=== PATIENT | male | born 1950 | race Two or more races ===

== ENCOUNTER → 2017-03-27 | Outpatient (CLI) | payer BC ==
[2017-03-27 13:09] LABS: Basophils # (auto) 0.1 uL; Basophils % (auto) 0.7 % (0.0-2.0); CONDITION Y; Eosinophils # (auto) 0.3 uL; Eosinophils % (auto) 3.7 % (0.0-7.0); Hematocrit 48.3 % (41.0-53.0); Hemoglobin 16.3 g/dL (13.5-17.5); Lymphocytes # (auto) 2.3 uL; Lymphocytes % (auto) 33.3 % (10.0-50.0); Mean Corpuscular Hemoglobin 32.4 pg (28.0-32.0); Mean Corpuscular Hgb Conc. 33.7 g/dL (32.0-36.0); Mean Corpuscular Volume 96.3 fL (80.0-100.0); Mean Platelet Volume 9.4 fL (7.4-10.4); Monocytes # (auto) 0.8 uL; Monocytes % (auto) 11.8 % (0.0-12.0); Neutrophils # (auto) 3.5 uL; Neutrophils % (auto) 50.5 % (37.0-80.0); Platelet Count (auto) 309 10^3/uL (140-450); Red Cell Distribution Width 14.3 % (11.6-16.0); White Blood Cell 6.9 10^3/uL (4.4-10.8)
[2017-03-27 13:38] LABS: Albumin 3.7 g/dL (3.4-5.0); Alkaline Phosphatase 74 U/L (45-117); Anion Gap 7 (5-15); Aspartate Aminotransferase 20 U/L (15-37); BUN/Creatinine Ratio 12.1; Bilirubin, Direct < 0.1 mg/dL (0-0.2); Bilirubin, Total 0.4 mg/dL (0.2-1.0); Blood Urea Nitrogen 11 mg/dL (7-18); Calcium 9.6 mg/dL (8.5-10.1); Carbon Dioxide 24 mmol/L (21-32); Chloride 105 mmol/L (98-107); Cholesterol 117 mg/dL (< 200); GFR African American 107 mL/min; GFR Non-African American 88 mL/min; Glucose 93 mg/dL (74-106); HDL Cholesterol 43 mg/dL (40-59); LDL Cholesterol 51 mg/dL (< 100); Potassium 4.7 mmol/L (3.5-5.1); Sodium 136 mmol/L (136-145); Total Protein 7.9 g/dL (6.4-8.2); Triglycerides 119 mg/dL (< 150)
== END | disposition home or self-care (01) ==
LOC: LAB 08:07
PROVIDERS: ATTEND Internal Medicine Cardiovascular Disease
DX: E78.00 Pure hypercholesterolemia, unspecified (principal); D64.9 Anemia, unspecified; I10 Essential (primary) hypertension; E03.9 Hypothyroidism, unspecified; E11.9 Type 2 diabetes mellitus without complications; R97.20 Elevated prostate specific antigen [PSA]; K74.1 Hepatic sclerosis; N39.0 Urinary tract infection, site not specified; E55.9 Vitamin D deficiency, unspecified; R53.81 Other malaise
CPT/HCPCS: 36415; 80048; 80061; 80076; 82306; 83036; 84153; 84403; 84439; 84443; 85025

== ENCOUNTER → 2017-10-23 | Outpatient (CLI) | payer BC ==
[~2017-10-23] VITALS: Ht 177.8 cm; Wt 98.4 kg
[2017-10-23 12:33] LABS: Basophils # (auto) 0.1 uL; Eosinophils # (auto) 0.2 uL; Eosinophils % (auto) 2.6 % (0.0-7.0); Hematocrit 47.3 % (41.0-53.0); Hemoglobin 15.8 g/dL (13.5-17.5); Lymphocytes # (auto) 2.4 uL; Lymphocytes % (auto) 29.7 % (10.0-50.0); Mean Corpuscular Hemoglobin 31.9 pg (28.0-32.0); Mean Corpuscular Hgb Conc. 33.5 g/dL (32.0-36.0); Mean Corpuscular Volume 95.4 fL (80.0-100.0); Neutrophils # (auto) 4.3 uL; Neutrophils % (auto) 54.7 % (37.0-80.0); Nucleated Red Blood Cells % 0.1 %; Platelet Count (auto) 288 10^3/uL (140-450); Red Blood Cells 4.96 10^6/uL (4.5-5.90); Red Cell Distribution Width 13.3 % (11.8-14.3); White Blood Cell 7.9 10^3/uL (4.4-10.8)
[2017-10-23 12:37] LABS: Urine Blood TRACE /uL (Negative)
[2017-10-23 13:05] LABS: Albumin 3.5 g/dL (3.4-5.0); BUN/Creatinine Ratio 14.9; Bilirubin, Total 0.4 mg/dL (0.2-1.0); Calcium 9.5 mg/dL (8.5-10.1); Potassium 4.7 mmol/L (3.5-5.1); Total Protein 7.9 g/dL (6.4-8.2)
[2017-10-23 13:32] LABS: Free T4 (Free Thyroxine) 1.19 ng/dL (0.89-1.76); Prostate Specific Antigen 2.81 ng/mL (0.0-4.0)
== END | disposition home or self-care (01) ==
LOC: Rad HDHVI 09:42
PROVIDERS: ATTEND Internal Medicine Cardiovascular Disease
DX: I25.10 Atherosclerotic heart disease of native coronary artery without angina pectoris (principal); R07.89 Other chest pain; E78.00 Pure hypercholesterolemia, unspecified; D64.9 Anemia, unspecified; J44.9 Chronic obstructive pulmonary disease, unspecified; E11.9 Type 2 diabetes mellitus without complications; E03.9 Hypothyroidism, unspecified; E55.9 Vitamin D deficiency, unspecified; I10 Essential (primary) hypertension; K74.1 Hepatic sclerosis; D51.9 Vitamin B12 deficiency anemia, unspecified; R53.81 Other malaise; R97.20 Elevated prostate specific antigen [PSA]; Z72.0 Tobacco use
CPT/HCPCS: 36415; 78452; 80053; 80061; 81003; 82306; 82607; 83036; 84153; 84439; 84443; 85025; 93017; 93306; 96374; A9500

== ENCOUNTER 2018-09-28 18:51 | Inpatient (IN) | payer BC ==
[~2018-09-28] VITALS: Ht 165.1 cm; Wt 94.7 kg
[2018-09-28 20:12] LABS: Basophils # (auto) 0.1 uL; Basophils % (auto) 0.9 % (0.0-2.0); Eosinophils # (auto) 0.1 uL; Lymphocytes # (auto) 1.5 uL; Monocytes # (auto) 1.2 uL; Nucleated Red Blood Cells % 0.1 %
[2018-09-28 20:14] LABS: Eosinophils % (auto) 0.5 % (0.0-7.0); Hematocrit 39.1 % (41.0-53.0); Hemoglobin 12.8 g/dL (13.5-17.5); Mean Corpuscular Hemoglobin 26.7 pg (28.0-32.0); Mean Corpuscular Hgb Conc. 32.6 g/dL (32.0-36.0); Mean Corpuscular Volume 81.8 fL (80.0-100.0); Monocytes % (auto) 10.6 % (0.0-12.0); Platelet Count (auto) 400 10^3/uL (140-450); Red Blood Cells 4.78 10^6/uL (4.5-5.90); White Blood Cell 10.8 10^3/uL (4.4-10.8)
[2018-09-28 20:33] LABS: Chloride 109 mmol/L (98-107); Potassium 3.6 mmol/L (3.5-5.1); Sodium 137 mmol/L (136-145)
[2018-09-28 20:36] LABS: INR 0.93 (0.9-1.15); Partial Thromboplastin Time 26.4 sec (23.78-33.04)
[2018-09-28 20:43] LABS: Alanine Aminotransferase 30 U/L (16-61); Albumin 3.4 g/dL (3.4-5.0); Alkaline Phosphatase 89 U/L (45-117); Amylase 30 U/L (25-115); Anion Gap 6 (5-15); Aspartate Aminotransferase 24 U/L (15-37); BUN/Creatinine Ratio 14.1; Bilirubin, Total 0.5 mg/dL (0.2-1.0); Blood Urea Nitrogen 13 mg/dL (7-18); Carbon Dioxide 22 mmol/L (21-32); GFR African American > 60 mL/min; GFR Non-African American > 60 mL/min; Glucose 95 mg/dL (74-106); Lipase 89 U/L (73-393); Magnesium 2.1 mg/dL (1.6-2.6); Total Protein 7.8 g/dL (6.4-8.2)
[2018-09-28] MEDS ORDERED: SODIUM CHLORIDE 0.9% 1,000 ML IV ONE (23:00)
[2018-09-28] MEDS ORDERED: metroNIDAZOLE 500MG/100ML 100 ML IV ONE (23:00)
[2018-09-28] MEDS ORDERED: cefTRIAXone 1GM/50ML D5W 50 ML IV ONE (23:00)
[2018-09-28] MEDS ORDERED: ONDANSETRON HCL 4 MG/2 ML VIAL IV ONE (23:45)
[2018-09-29] VITALS (7 sets, daily range): BP systolic 111–130; BP diastolic 54–80
[2018-09-29] MEDS ORDERED: MORPHINE SULFATE 10 MG/ML INJ 1ML SDV IV PRN (02:00)
[2018-09-29] MEDS ORDERED: TEMAZEPAM 15 MG CAP PO PRN (02:00)
[2018-09-29] MEDS ORDERED: ONDANSETRON HCL 4 MG/2 ML VIAL IV PRN (02:00)
[2018-09-29] MEDS: SODIUM CHLORIDE 0.9% 1,000 ML IV SCH ×3 (02:00→20:48)
--- NOTE | 2018-09-29 02:42 | NUR ---
Med-Surg admit from ER [facility] admitted to med-surg unit. No SBAR received. Patient oriented to SISI DUENAS primary RN, [facility] unit, room # 250, bed- A, and unit policies regarding patient care and visiting hours. Patient placed on Room Air,no distress moted or stated, denies pain, and encouraged to call if they need something. All questions and concerns addressed, patient verbalized understanding.
--- NOTE | 2018-09-29 02:59 | NUR ---
X-RAY ORDER IN PLACE TO CONFIRM NG PLACEMENT.
--- NOTE | 2018-09-29 03:43 | NUR ---
BELONGINGS LIST. UPDATED AND IN PHYSICAL CHART.
[2018-09-29] MEDS ORDERED: LISI2.5T47 PO (04:59)
[2018-09-29] MEDS: PANTOPRAZOLE 40 MG/10 ML VIAL IV SCH (06:23)
--- NOTE | 2018-09-29 07:39 | NUR ---
CLOSING NOTE SABER REPORT GIVEN TO HEIKE MONTALVO. PT IS ALERT AND ORIENTED 4X, SAFETY PRECAUTIONS IN PLACE. DAY SHIFT RN AWARE THAT NG TUBE WAS PULLED OUT AND WE ARE WAITING FOR NEW REPORT TO CONNECT NG TO LIS.
--- NOTE | 2018-09-29 08:00 | NUR ---
Opening Shift Note Assumed care of patient, awake and alert. No S/S of distress/SOB or pain. With NG tube connected to low intermittent suction intact draining to gastric content in minimal amount. Instructed on POC and to call for assist PRN, will continue to monitor for changes Q1hr and PRN.
[2018-09-29] MEDS ORDERED: GASTROGRAFIN 120 ML SOL ONE (09:39)
[2018-09-29] MEDS ORDERED: IOHEXOL 300 MG/ML 100ML BOTTLE IJ ONE (09:42)
--- NOTE | 2018-09-29 11:00 | NUR ---
Oncology consult follow up with Dr. Lopez. Waiting for call back. Will continue care.
[2018-09-29] MEDS ORDERED: cefTRIAXone 1GM/50ML D5W 50 ML IV ONE (12:00)
--- NOTE | 2018-09-29 12:31 | NUR ---
GI consult Dr. Cordova at bedside. Patient was advised. No GI intervention at this time. Will continue care.
--- NOTE | 2018-09-29 13:00 | NUR ---
Completion bowel series done. Waiting for results.
--- NOTE | 2018-09-29 13:15 | NUR ---
Received orders from Dr. Talavera, Patient is for PICC line insertion for TPN. Will continue care.
[2018-09-29 13:43] LABS: Anion Gap 9 (5-15); BUN/Creatinine Ratio 18.6; Blood Urea Nitrogen 16 mg/dL (7-18); Calcium 8.7 mg/dL (8.5-10.1); Carbon Dioxide 20 mmol/L (21-32); Chloride 112 mmol/L (98-107); GFR African American > 60 mL/min; GFR Non-African American > 60 mL/min; Glucose 83 mg/dL (74-106); Magnesium 2.1 mg/dL (1.6-2.6); Phosphorus 3.8 mg/dL (2.5-4.90); Potassium 4.3 mmol/L (3.5-5.1); Sodium 141 mmol/L (136-145)
[2018-09-29] MEDS ORDERED: TPN PER PHARMACY 0 ML IV SCH (14:15)
[2018-09-29] MEDS: ACCU-CHEK COMFORT CURVE STRIP VI SCH (17:03)
[2018-09-29] MEDS: SODIUM FERR GLUC 62.5MG/5ML 125 MG in SODIUM CHL 0.9% 100 ML IV SCH (17:03)
--- NOTE | 2018-09-29 17:30 | NUR ---
Tap water enema done. Patient able to pass out stools, soft in consistency.
[2018-09-29] MEDS ORDERED: DEXTROSE (50%) 50ML SYRG IV SCH (18:00)
[2018-09-29] MEDS: InsuLIN REG 1unit/0.01ml Soln (100units/ml) SC SCH (18:00)
[2018-09-29] MEDS: AMINO ACID INFUSION IN D10W 1,000 ML IV NR (20:48)
[2018-09-30] MEDS: ACCU-CHEK COMFORT CURVE STRIP VI SCH ×4 (00:02→17:40)
[2018-09-30 01:53] LABS: Urine Bacteria NONE SEEN /hpf (None Seen); Urine Blood TRACE /uL (Negative); Urine Mucus FEW (None Seen); Urine Specific Gravity 1.041 (1.001-1.035); Urine WBC 2 /hpf (0 - 3)
[2018-09-30 04:56] VITALS: BP 112/66
[2018-09-30 05:46] LABS: Basophils # (auto) 0 uL; Basophils % (auto) 0.3 % (0.0-2.0); Eosinophils # (auto) 0 uL; Eosinophils % (auto) 0.3 % (0.0-7.0); Hemoglobin 11.9 g/dL (13.5-17.5); Mean Corpuscular Hgb Conc. 31.9 g/dL (32.0-36.0); Monocytes # (auto) 1.2 uL; Red Blood Cells 4.57 10^6/uL (4.5-5.90); White Blood Cell 9.7 10^3/uL (4.4-10.8)
[2018-09-30 05:49] LABS: Hematocrit 37.3 % (41.0-53.0); Lymphocytes # (auto) 0.8 uL; Lymphocytes % (auto) 8.7 % (10.0-50.0); Mean Corpuscular Volume 81.6 fL (80.0-100.0); Monocytes % (auto) 12.2 % (0.0-12.0); Neutrophils # (auto) 7.6 uL; Neutrophils % (auto) 78.5 % (37.0-80.0); Platelet Count (auto) 378 10^3/uL (140-450); Red Cell Distribution Width 17.4 % (11.8-14.3)
[2018-09-30] MEDS: InsuLIN REG 1unit/0.01ml Soln (100units/ml) SC SCH ×4 (05:51→17:40)
[2018-09-30 06:05] LABS: Anion Gap 5 (5-15); Blood Urea Nitrogen 19 mg/dL (7-18); Calcium 8.1 mg/dL (8.5-10.1); Carbon Dioxide 24 mmol/L (21-32); Chloride 113 mmol/L (98-107); Glucose 120 mg/dL (74-106); Magnesium 2.3 mg/dL (1.6-2.6); Potassium 3.6 mmol/L (3.5-5.1); Sodium 142 mmol/L (136-145)
[2018-09-30 06:06] LABS: % Iron Saturation 91.7 % (20-55)
[2018-09-30 06:12] LABS: Alanine Aminotransferase 24 U/L (16-61); Alkaline Phosphatase 81 U/L (45-117); Aspartate Aminotransferase 17 U/L (15-37); BUN/Creatinine Ratio 23.2; Bilirubin, Total 0.4 mg/dL (0.2-1.0); GFR African American > 60 mL/min; GFR Non-African American > 60 mL/min; Phosphorus 2.6 mg/dL (2.5-4.90); Pre Albumin 14.8 mg/dL (20.0-40.0); Triglycerides 82 mg/dL (< 150)
[2018-09-30] MEDS: PANTOPRAZOLE 40 MG/10 ML VIAL IV SCH (06:50)
--- NOTE | 2018-09-30 08:00 | NUR ---
Opening Shift Note Assumed care of patient, awake and alert. No S/S of distress/SOB or pain. Patient verbalized having episodes of vomiting last night. Patient NG tube at left nares intact connected to low intermittent suction draining to brownish to clear output in moderate amount. Instructed on POC and to call for assist PRN, will continue to monitor for changes Q1hr and PRN.
[2018-09-30 09:00] VITALS: BP 122/72
--- NOTE | 2018-09-30 09:00 | NUR ---
IV removal IV on left hand infiltrated. IV DC'd with clean sterile technique, catheter fully intact. Pressure dressing applied to site. Patient tolerated well.
[2018-09-30 09:10] LABS: Folate (Folic Acid) 8.37 ng/mL (5.38-24)
--- NOTE | 2018-09-30 10:15 | NUR ---
IV reinsertion IV access obtained, via clean sterile technique by inserting 18 gauge catheter at left wrist after one attempt. IV secured properly. No trauma to site. Patient tolerated well.
[2018-09-30] MEDS: cefTRIAXone 1GM/50ML D5W 50 ML IV SCH (10:29)
[2018-09-30] MEDS ORDERED: POTASSIUM PHOSPHATE 22 MEQ in SODIUM CHL 0.9% 100 ML IV ONE (11:45)
--- NOTE | 2018-09-30 12:00 | NUR ---
Unable to do Accucheck at this time, ongoing PICC line insertion at bedside. Will continue care.
--- NOTE | 2018-09-30 12:05 | NUR ---
Iron-333 H, TIBC-363, % Sat-91.7 H, Ferritin-45.6. Called Dr. Lopez/Dr. Campo office about the results and if the Iron drip needs to be continued. Left a message to their exchange. Waiting for call back. Will continue care.
--- NOTE | 2018-09-30 12:15 | NUR ---
PICC line placement Patient educated on need for PICC line placement. All risks and benefits explained and all questions and concerns addressed prior to procedure. Noted past medical history and allergies with no contraindications. INR and Plt counts within acceptable range. 4 fr PICC line inserted via right basilic vein using [employer] US and Tip Location System. Sterile technique with maximum barrier precautions utilized. Blood return obtained from single lumen and each flushed easily with NS using proper technique. PICC secured with Stat-lock; biodisc and occlusive dressing applied. Stat portable chest x-ray obtained for PICC tip placement. *Baseline Arm Circumference 28 cm. *Internal Length 46 cm. *External Length 1 cm. *PICC lot #[id number]. Note:PICC line placed by Dada Nash RN.
[2018-09-30] MEDS ORDERED: LIDOCAINE 1% (LOCAL ANESTH.) PF 5ml SDV ID ONE (12:30)
[2018-09-30] MEDS ORDERED: CYANOCOBALAMIN (B-12) 1000 MCG/1 ML VIAL SUBCUT ONE (12:45)
[2018-09-30 13:00] VITALS: BP 124/71
--- NOTE | 2018-09-30 13:00 | NUR ---
Patient transfer of service to Dr. Lee.
--- NOTE | 2018-09-30 13:20 | NUR ---
Spoke with Dr. Campo about the Iron results, orders received. Continue Iron drip.
--- NOTE | 2018-09-30 13:30 | NUR ---
Spoke to Suyapa at Pharmacy, patient already has a PICC line inserted and OK for use. Will continue care.
[2018-09-30] MEDS: SODIUM FERR GLUC 62.5MG/5ML 125 MG in SODIUM CHL 0.9% 100 ML IV SCH (13:55)
[2018-09-30] MEDS: SODIUM CHLORIDE 0.9% 1,000 ML IV SCH (13:55)
--- NOTE | 2018-09-30 14:15 | NUR ---
Okay to use PICC line X-ray completed.
--- NOTE | 2018-09-30 14:49 | NUR ---
Nutrition Consult/assessment Notes please see attached link for complete assessment Est. Needs ABW [id number] kcal (23-25 kcal/kgBW), 76-91 gms pro (1.0-1.2 gms/kgBW). Will continue to monitor pertinent labs and reassess nutrient need prn Addendum: 09/30/18 at [address] Amended: Links added.
--- NOTE | 2018-09-30 15:30 | NUR ---
MD rounds Dr. Lee at bedside, patient was advised/discussed the treatment plan and possible surgery on Thursday. Will continue care.
--- NOTE | 2018-09-30 18:12 | NUR ---
C.diff culture hasn't been done yet because patient had tap water enema for the last 48 hours. Will try to collect stool sample tomorrow.
--- NOTE | 2018-09-30 19:00 | NUR ---
opening note RESUMED CARE OF PATIENT. PATIENT IS SITTING UP IN BED, A&O X4. NO S/S OF DISTRESS. BED IS AT LOWEST POSITION, CALL LIGHT IN REACH.
--- NOTE | 2018-09-30 19:00 | NUR ---
Coffee ground output about 600ml drained from NG tube connected to LIS.
[2018-09-30] MEDS: AMINO ACID INFUSION IN D10W 1,000 ML IV NR (19:49)
[2018-09-30] MEDS ORDERED: PPN PER PHARMACY IV NR ×7 (20:00)
[2018-09-30 22:00] VITALS: BP 148/96
[2018-09-30] MEDS: SODIUM CHLOR 0.9% PF (SALINE LOCK) 10ML VIAL/SYR IV SCH (22:20)
[2018-10-01] VITALS (25 sets, daily range): BP systolic 84–155; BP diastolic 52–86
[2018-10-01] MEDS: ACCU-CHEK COMFORT CURVE STRIP VI SCH ×4 (00:30→18:10)
[2018-10-01] MEDS: SODIUM CHLORIDE 0.9% 1,000 ML IV SCH (05:20)
[2018-10-01] MEDS: InsuLIN REG 1unit/0.01ml Soln (100units/ml) SC SCH ×4 (06:00→18:00)
[2018-10-01 06:17] LABS: Albumin 2.7 g/dL (3.4-5.0); Anion Gap 5 (5-15); Blood Urea Nitrogen 16 mg/dL (7-18); Calcium 8.4 mg/dL (8.5-10.1); Carbon Dioxide 24 mmol/L (21-32); Chloride 114 mmol/L (98-107); Glucose 100 mg/dL (74-106); Magnesium 2.2 mg/dL (1.6-2.6); Potassium 3.5 mmol/L (3.5-5.1); Sodium 143 mmol/L (136-145)
[2018-10-01 06:21] LABS: Alanine Aminotransferase 22 U/L (16-61); Alkaline Phosphatase 66 U/L (45-117); Aspartate Aminotransferase 20 U/L (15-37); BUN/Creatinine Ratio 23.5; Bilirubin, Total 0.3 mg/dL (0.2-1.0); Phosphorus 2.1 mg/dL (2.5-4.90); Total Protein 6.3 g/dL (6.4-8.2)
[2018-10-01 06:29] LABS: GFR African American > 60 mL/min; GFR Non-African American > 60 mL/min
[2018-10-01] MEDS: PANTOPRAZOLE 40 MG/10 ML VIAL IV SCH (06:32)
--- NOTE | 2018-10-01 08:00 | NUR ---
Opening Shift Note Assumed care of patient, awake and alert. No S/S of distress/SOB or pain. With NG tube intact on left nares connected to LIS draining to coffee ground output. Instructed on POC and to call for assist PRN, will continue to monitor for changes Q1hr and PRN.
[2018-10-01] MEDS: cefTRIAXone 1GM/50ML D5W 50 ML IV SCH (09:13)
[2018-10-01] MEDS: SODIUM CHLOR 0.9% PF (SALINE LOCK) 10ML VIAL/SYR IV SCH ×2 (09:13→22:12)
[2018-10-01] MEDS ORDERED: fentaNYL CITRATE 100 MCG/2 ML VL ONE (09:59)
[2018-10-01] MEDS ORDERED: SODIUM CHLORIDE LOCK 10 ML ONE (09:59)
[2018-10-01] MEDS ORDERED: ETOMIDATE (2MG/ML) 20ML VIAL IV ONE (09:59)
[2018-10-01] MEDS ORDERED: fentaNYL CITRATE 10 ML ONE ×2 (09:59→13:08)
[2018-10-01] MEDS ORDERED: HYDROmorphone HCL 2 MG/ML VL ONE (09:59)
[2018-10-01] MEDS ORDERED: MIDAZOLAM HCL 1MG/1ML-2 ML VIAL ONE (09:59)
[2018-10-01] MEDS ORDERED: ROCURONIUM 10MG/ML 10ML VIAL IV ONE (09:59)
--- NOTE | 2018-10-01 10:00 | NUR ---
Received orders from Dr. Talavera, patient is for Exploratory Laparotomy today. Patient made aware. Patient requested to sign the consents after talking to Dr. Talavera. Penny BURROUGHS pre-op made aware. Will continue care.
--- NOTE | 2018-10-01 10:30 | NUR ---
CHG wipes done. Pre-op checklist accomplished. Will continue care.
[2018-10-01] MEDS ORDERED: PROPOFOL 10 MG/ML 20 ML IV ONE (10:41)
--- NOTE | 2018-10-01 11:10 | NUR ---
Patient brought to Pre-op via bed for Exploratory Laparotomy to be performed by Dr. Talavera. Gave reports to Penny BURROUGHS.
[2018-10-01] MEDS: SODIUM FERR GLUC 62.5MG/5ML 125 MG in SODIUM CHL 0.9% 100 ML IV SCH (11:56)
[2018-10-01] MEDS ORDERED: POTASSIUM PHOSPHATE 44 MEQ in D5W 5% 250 ML IV ONE (12:00)
--- NOTE | 2018-10-01 14:30 | NUR ---
Patient will be transferred to ICU post surgery per PARLIAMENTARY COUNSEL.
[2018-10-01] MEDS ORDERED: MIDAZOLAM DRIP 50 mg/50mL 50 ML IV ONE (14:35)
[2018-10-01] MEDS ORDERED: MIDAZOLAM DRIP 50 mg/50mL 50 ML IV SCH (14:36)
[2018-10-01] MEDS ORDERED: LABETALOL HCL 5 MG/ML 4ML SYRINGE IV PRN (14:45)
[2018-10-01] MEDS ORDERED: HYDROmorphone HCL 2 MG/ML VL IV PRN (14:45)
--- NOTE | 2018-10-01 16:00 | NUR ---
RECEIVED REPORTS FROM LIVING COACH, PATIENT WILL BE TRANSFERRED TO [facility] 262 ICU CASE. WILL GIVE REPORTS TO [facility] RN.
--- NOTE | 2018-10-01 16:30 | NUR ---
PATIENT TRANSFERRED TO [facility] RM-262 ICU CASE. GAVE REPORTS TO LEESA BURROUGHS.
--- NOTE | 2018-10-01 16:40 | NUR ---
PATIENT ACCEPTED FROM OR ON MECHANICAL VENTILATOR WITH R.T AT BEDSIDE. PT INTUBATED WITH 8.0/24LIP, AC 12 TV 600 50% FI02 PEEP5, LUNGS CLEAR, DIMINISHED. PATIENT AWAKE ATTEMPTING TO REACH AT TUBE, WITH REASSURANCE PATIENT RELAXED, PT CURRENTLY SEDATED WITH VERSED AT 10MG/HR TO ANIVAL PICC SINGLE LUMEN, 2ND LINE TO LEFT FOREARM 18G, PATENT, HEP LOCKED. ARTERIAL LINE TO RIGHT WRIST IN PLACE WITH VSS. PUPILS 2 SLUGGISH. SURGICAL INCISION TO MID ABD WITH DRESSING CDI, DELMI IN PLACE WITH APPROX 60CC OF SANGUINOUS FLUID DRAINED. CDS IN PLACE. SACRUM INTACT WITH OPTIFOAM IN PLACE. RIGHT FOREARM SKIN TEAR NOTED, PICTURES TO BE TAKEN, SITE CLEANSED WITH NS AND PADDED DRY WITH STERILE GAUZE, OPTIFOAM IN PLACE. MRSA TO NARES COLLECTED AND SENT. AWAITING SCD MACHINE.. DR. ALMANZA PAGED TO NOTIFY OF CURRENT HR 11-115, NEW ORDER IN PLACE. FAMILY AT BEDSIDE UPDATED ON PLAN OF CARE AND SON/ SPOKE TO MD AND FOLLOWED UP WITH POST OP UPDATE.
[2018-10-01] MEDS ORDERED: fentaNYL Drip 2500mCg/250mlNS 250 ML IV SCH (17:15)
[2018-10-01] MEDS: MIDAZOLAM DRIP 50 mg/50mL 50 ML IV SCH ×2 (18:10→20:22)
[2018-10-01] MEDS ORDERED: TPN PER PHARMACY IV NR ×9 (20:00)
--- NOTE | 2018-10-01 20:22 | NUR ---
IV INSERTION INSERTED G.20 IV CANNULA IN THE LEFT HAND VIA ASEPTIC TECHNIQUE AFTER 1ST ATTEMPT. PT.TOLERATED WELL.
--- NOTE | 2018-10-01 22:00 | NUR ---
VENT FIO2 DECREASED TO 40% PER JAY RT, SPO2 98%. NO DISTRESS NOTED.
--- NOTE | 2018-10-01 22:34 | NUR ---
COMMUNICATED WITH DR. ALMANZA THAT PT'S HR IS STILL 110-115 AND ASK HIM IF HE WANTS TO INCREASE IVF RATE. AWAITING REPLY.
--- NOTE | 2018-10-01 22:35 | NUR ---
RECEIVED A CALL FROM DR. ALMANZA WITH NEW ORDERS GIVEN TO INCREASE TPN @ 70ML/HR AND NS @ 200ML/HR. WILL CARRY OUT ORDERS.
--- NOTE | 2018-10-01 22:46 | NUR ---
NS INCREASED TO 200ML/HR, TPN REGULATED @ 70ML/HR PER DR. ALMANZA'S ORDER.
[2018-10-02] VITALS (88 sets, daily range): BP systolic 90–272; BP diastolic 40–190
[2018-10-02] MEDS: ACCU-CHEK COMFORT CURVE STRIP VI SCH ×4 (00:13→18:45)
[2018-10-02] MEDS: InsuLIN REG 1unit/0.01ml Soln (100units/ml) SC SCH ×4 (00:14→18:24)
[2018-10-02] MEDS: SODIUM CHLORIDE 0.9% 1,000 ML IV SCH ×5 (02:30→20:36)
--- NOTE | 2018-10-02 05:10 | NUR ---
PT ATTEMPTED TO PULL OUT THE ET TUBE, SLIGHTLY RESTLESS, HR 110-115, SBP 150-160'S, INCREASED VERSED AND FENTANYL SEDATION, SEE SPREADSHEET.
--- NOTE | 2018-10-02 05:30 | NUR ---
Patient bathe/linen change Patient given complete bath. Skin integrity assessed for any changes. Linens and gown changed. Patient repositioned for comfort.
--- NOTE | 2018-10-02 05:40 | NUR ---
APPEARS RELAXED AND CALM, EYES CLOSED WITH NO SIGNS OF DISTRESS,HR 90'S-LOW 100'S, SBP 120'S
[2018-10-02 05:45] LABS: Alanine Aminotransferase 20 U/L (16-61); Anion Gap 5 (5-15); Blood Urea Nitrogen 14 mg/dL (7-18); Calcium 7.3 mg/dL (8.5-10.1); Carbon Dioxide 24 mmol/L (21-32); Chloride 109 mmol/L (98-107); Glucose 181 mg/dL (74-106); Magnesium 1.8 mg/dL (1.6-2.6); Potassium 3.8 mmol/L (3.5-5.1); Sodium 138 mmol/L (136-145)
[2018-10-02 05:48] LABS: Alkaline Phosphatase 48 U/L (45-117); Aspartate Aminotransferase 23 U/L (15-37); BUN/Creatinine Ratio 21.2; Bilirubin, Total 0.3 mg/dL (0.2-1.0); Phosphorus 3.2 mg/dL (2.5-4.90)
[2018-10-02 05:52] LABS: GFR African American > 60 mL/min; GFR Non-African American > 60 mL/min
--- NOTE | 2018-10-02 06:00 | NUR ---
DRESSING POST-OP MIDLINE INCISION DRESSING CHANGED COVERED WITH PRIMAPORE DRESSING, NO SIGNS OF INFECTION NOTED, DAVID REMAINED INTACT.
--- NOTE | 2018-10-02 06:05 | NUR ---
OPTIFOAM DRESSING IN THE RIGHT WRIST CHANGED, MINIMAL DRAINAGE NOTED
[2018-10-02] MEDS: PANTOPRAZOLE 40 MG/10 ML VIAL IV SCH (06:54)
--- NOTE | 2018-10-02 07:15 | NUR ---
REPORT: REPORT RECEIVED FROM EMS DIRECTOR RN TO RESUME CARE OF PT.
--- NOTE | 2018-10-02 07:26 | NUR ---
CLOSING SHIFT NOTE RESTING ON BED, STILL ON VENT WITH NO SIGNS OF DISTRESS. REPORT GIVEN TO ROSETTE BURROUGHS.
[2018-10-02 07:52] LABS: Basophils # (auto) 0 uL; Eosinophils # (auto) 0 uL; Eosinophils % (auto) 0.1 % (0.0-7.0); Lymphocytes # (auto) 0.9 uL; Platelet Count (auto) 302 10^3/uL (140-450)
[2018-10-02 07:55] LABS: Basophils % (auto) 0.1 % (0.0-2.0); Hematocrit 33.7 % (41.0-53.0); Hemoglobin 10.9 g/dL (13.5-17.5); Mean Corpuscular Hemoglobin 26.4 pg (28.0-32.0); Mean Corpuscular Hgb Conc. 32.3 g/dL (32.0-36.0); Mean Corpuscular Volume 81.7 fL (80.0-100.0); Monocytes # (auto) 0.5 uL; Monocytes % (auto) 5.9 % (0.0-12.0); Neutrophils # (auto) 7.6 uL; Neutrophils % (auto) 83.9 % (37.0-80.0); Red Blood Cells 4.13 10^6/uL (4.5-5.90)
--- NOTE | 2018-10-02 08:00 | NUR ---
OPEN: ASSESSMENT COMPLETE. SEE NURSING FLOW SHEET FOR UPDATED DETAILS. PT APPEARS TO BE ALERT TO SELF, NOT ABLE TO SPEAK AT TIME PT IS INTUBATED AND SEDATED. PT DOES NOT FOLLOW COMMANDS BUT DOES GRIMACE AND MOVE ALL EXTREMITIES TO VERBAL COMMANDS AND PAINFUL STIMULATION. UPON TURNING AND REPOSITIONING IN BED, PT DOES ATTEMPT TO ASSIST WITH TURNING. INTUBATED WITH 8.0ETTUBE/24LIP LINE. AC12,TV 550, 30%FI02, PEEP5. CLEAR TO DIMINISHED BREATH SOUNDS. NGT TO LEFT NARE CONNECTED TO LCS DRAINING MINIMAL AMOUNT OF GREEN/BROWN SECRETIONS. WHITLEY CATHETER IN PLACE DRAINING URINE TO GRAVITY. SCD'S ON BILATERAL LOWER EXTREMITIES. 18G IV TO LEFT WRIST RUNNING .9NS AT 200ML/HR. VERSED GTT AT 9MCG/HR AND FENTANYL GTT AT 70MCG/HR RUNNING TO 20G IV ON LEFT HAND. SINGLE LUMEN PICC LINE TO LEFT UPPER ARM RUNNING TPN AT 70ML/HR. MIDABDOMINAL INCISION THAT IS COVERED WITH DRESSING THAT IS C/D/I. ABDOMINAL BINDER APPLIED AND NOW IN PLACE. DELMI DRAIN X1 TO LOWER RIGHT QUADRANT DRAINING SEROSANGUINEOUS FLUID TO BULB SUCTION. ALL MONITORS CONNECTED TO PT FOR CONTINUOUS MONITORING. SHARED POC WITH PT BUT UNABLE TO VERBALIZE UNDERSTANDING AT TIME. CONTINUE CARE FOR SHIFT.
--- NOTE | 2018-10-02 08:25 | NUR ---
FAMILY: FAMILY IN AT BEDSIDE. UPDATED ON PT STATUS AND ALL QUESTIONS AND CONCERNS ADDRESSED.
--- NOTE | 2018-10-02 08:30 | NUR ---
CXR: CXR BEING DONE AT BEDSIDE.
[2018-10-02] MEDS: cefTRIAXone 1GM/50ML D5W 50 ML IV SCH (08:43)
--- NOTE | 2018-10-02 08:54 | NUR ---
MICRO: MICRO CALLED. SPECIMEN IN LAB FROM YESTERDAY BUT NO ORDERS PLACED AT TIME. WILL NOTIFY MD AND CHECK WHAT HE WOULD LIKE TO BE ORDERED.
[2018-10-02] MEDS: POTASSIUM PHOSPHATE IV NR ×18 (09:23→19:04)
[2018-10-02] MEDS: POTASSIUM ACETATE IV NR ×18 (09:23→19:04)
[2018-10-02] MEDS: FAT EMULSION IV NR ×18 (09:23→19:04)
[2018-10-02] MEDS: [UNRECOGNIZED DRUG - OTHER] IV NR ×18 (09:23→19:04)
[2018-10-02] MEDS: SODIUM CHLOR 0.9% PF (SALINE LOCK) 10ML VIAL/SYR IV SCH ×2 (10:01→20:38)
--- NOTE | 2018-10-02 10:48 | NUR ---
SEDATION: DECREASED VERSED GTT TO 9MG/HR. PT IS ABLE TO OPEN EYES BUT NOT FOLLOWING COMMANDS AT TIME. DECEASING FOR SEDATION VACATION AND FOR A POSSIBLE WEAN DEPENDING ON MD REQUEST.
--- NOTE | 2018-10-02 11:50 | NUR ---
WOUND CARE NOTE: Wound care in to see patient per wound care request regarding "Intubated, sedated, Low Reno, Right forearm skin tear" that are noted upon assessment. Bedside nurse took photograph of patient's skin tear for reference. Patient is 68 years old male with admitting diagnosis of Small Bowel Obstruction. Patient originally admitted to MS/telemetry unit. He admitted to SDU from O.R s/p Exploratory Laparotomy yesterday 10/01/[address] Talavera. Patient is resting in SDU bed in Rm. 262. He's intubated, and mechanically ventilated. Patient appears to be in no pain using Kendrick Briones Faces Pain Scale. His current Reno score is 14. Skin assessment done with the assistance of patient's nurse, HEIKE Gonzalez. Patient's abdominal incision has C/D/I dressing with intact DELMI drain. His R forearm has 1x 0.5 cm open partial thickness skin tear. Wound is red with ecchymotic trav wound, scant serosanguineous drainage noted, no odor noted. Bedside nurse cleansed patient's skin tear and covered wound with Opti foam gentle dressing per MD ordered. Patient's sacrum has intact, pink, blanchable skin, applied protective Opti foam sacral dressing. No pressure injury related skin issue noted. Repositioned patient for comfort facing his Rt. side,redistributed pressure points with pillows. Patient tolerated well. HEIKE Gonzalez at bedside. RECOMMENDATION: Q3Days/PRN dressing change to Rt. forearm skin tear; BID/PRN cleaning and application of Barrier cream to sacrum as preventative per MD order, frequent turning and repositioning schedule as condition permits, redistribute pressure with pillows, elevate heels on pillows, continue monitoring by wound care while patient is mechanically ventilated. Addendum: 10/02/18 at 1726 by Keyonna Hawkins RN Amended: Links added.
[2018-10-02] MEDS: SODIUM FERR GLUC 62.5MG/5ML 125 MG in SODIUM CHL 0.9% 100 ML IV SCH (11:56)
--- NOTE | 2018-10-02 11:56 | NUR ---
WOUND CARE: HOOP COILING MACHINE OPERATOR IN AT BEDSIDE. UPDATED ON PT STATUS AND FULL ASSESSMENT DONE. NEW DRESSING WITH OPTIFOAM AND HONEY APPLIED TO LEFT SKIN TEAR. PT TOLERATED WELL.
--- NOTE | 2018-10-02 12:04 | NUR ---
LAB: SPOKE TO LAB. PLACED NEW ORDER FOR CYTOLOGY SAMPLE FROM YESTERDAY. PER LAB, THEY HAVE THE SPECIMEN BUT NOT THE ORDERS. HE WILL ATTEMPT TO CHECK ON ORDERS AND FOLLOW UP.
--- NOTE | 2018-10-02 12:05 | NUR ---
PAGE: DR. ALMANZA PAGED REGARDING UPDATED STATUS AND NEED FOR ORDERS. WAITING FOR CALL BACK.
--- NOTE | 2018-10-02 12:14 | NUR ---
CALL BACK: DR. ALMANZA CALLED BACK. UPDATED ON PT STATUS AND AWARE OF CURRENT STATUS. AWARE OF ALL LAB VALUES, ABG VALUES, CXR THIS AM AND CURRENT VITAL SIGNS. OK FOR PT TO BE WEANED OFF SEDATION AND START CPAP TRIAL ONCE PT IS FOLLOWING COMMANDS AND AWAKE. FAMILY UPDATED AND AWARE. DECREASED VERSED GTT TO 3MG/HR AND FENTANYL GTT TO 30MCG/HR. WILL CONTINUE TO MONITOR.
--- NOTE | 2018-10-02 12:30 | NUR ---
SEDATION: VERSED GTT TURNED OFF. FENTANYL GTT DECREASED TO 25MCG/HR. PT OPENING EYES MORE THAN BEFORE, BUT NOT FOLLOWING COMMANDS.
--- NOTE | 2018-10-02 12:42 | NUR ---
Nutrition Follow-up Notes Wt.: 95.7 kg today. Pt's intubated, family members at bedside who provide pt's additional pertinent information when rounded this morning. 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 Pt used to have good appetite, eat meals regularly, NKFA and not into any special diets. Pt's s/p Exploratory laparotomy yesterday, on NGT to LCS had 400 ml gastric drainage output noted by RN earlier Pt's NPO, currently with TPN @ 70 ml/hr providing 1430 kcal, 70 gms proteins, 1150 NPCs and 21% Fat. Pt with adequate PN support d/t mod initiation rate delivery of concentrated formula aeb current PN infusion meets 75% to 82% of est caloric needs and 66% to 92% of est protein needs. Discussed importance/benefits of PN support while pt's NPO r/t current medical condition and they verbalized understanding. Noted pt's to receive tonight another TPN @ 65 ml/hr providing 1640 kcal, 80 gms proteins, 1320 NPCs and 18% Fat and for possible CPAP trial today. Est. Needs ABW [id number] kcal (23-25 kcal/kgBW), 76-106 gms pro (1.0-1.4 gms/kgBW reassessed d/t severe hypoalbuminemia, s/p surgery). Will continue to monitor pertinent labs and reassess nutrient need prn Labs: Gluc 181 H, Cl 109 H, Cr 0.66 L, Ca 7.3 L, Tpro 5.0 L, Alb 2.0 L; Prealb 14.8 H, Trig 82 wnl Skin: Reno scale 14, mod risk, pt's medial abdomen incision dry and intact dressing per trash man. GI: Pt had 1 BM yesterday per trash man. PES: Increased nutrient needs r/t current/chronic medical condition aeb s/p surgery, intubated, with SBO, NPO on PN support Altered nutrition related lab values r/t current/chronic medical condition aeb hyperglycemia, mild hypoalb, hypocalcemia Will continue to monitor NPO status, PN tolerance, skin status, pertinent labs and weight trend. F/u in 2 to 3 days. Rec.: 1.) If still NPO, continue PN support consider gradual increase on protein to meet at least 75% of nutrient needs. 2.) Advance gradually to oral diet when medically appropriate. 3.) Refer pt to RD for further nutrition education and weight monitoring upon discharge. 4.) Continue current plan of care.
--- NOTE | 2018-10-02 12:49 | NUR ---
SEDATION: DECREASED FENTANYL GTT TO 10MCG/HR. PT STARTING TO MOVE ALL EXTREMITIES, NOT FOLLOWING COMMANDS YET BUT APPEARING TO BE MORE AWAKE THAN PRIOR. PERIODS OF RELAXATION AND PERIODS OF AGITATION.
--- NOTE | 2018-10-02 13:06 | NUR ---
SEDATION: TURNED OFF FENTANYL GTT. PT STARTING TO MOVE ALL EXTREMITIES, NOT FOLLOWING COMMANDS YET BUT APPEARING TO BE MORE AWAKE THAN PRIOR. PERIODS OF RELAXATION AND PERIODS OF AGITATION.
--- NOTE | 2018-10-02 13:30 | NUR ---
ALERTNESS: PT MUCH MORE AWAKE THAN PRIOR, FOLLOWING COMMANDS AT TIME, DENIES PAIN, REMAINING CALM AND VITAL SIGNS IN STABLE RANGE. RT MADE AWARE AND PLANNING ON PLACING PT ONTO CPAP TRIAL.
--- NOTE | 2018-10-02 13:33 | NUR ---
PT WAS PLACED ON CPAP WEANING TRIAL PER DR ALMANZA. PT IS OFF SEDATION. PT IS AWAKE, ABLE TO UNDERSTAND AND FOLLOW INDICATIONS. PT TOLERATING WELL. NO ACUTE DISTRESS NOTICED. RASHID NEELY AWARE. WILL CONTINUE TO MONITOR PT.
--- NOTE | 2018-10-02 13:45 | NUR ---
MD VISIT: DR. CACERES IN AT BEDSIDE. UPDATED ON PT STATUS AND AWARE OF CURRENT STATUS. AWARE THAT PT IS ON CPAP AT TIME. NO ADDITIONAL ORDERS RECEIVED AT TIME.
--- NOTE | 2018-10-02 14:58 | NUR ---
WEANING PARAMETERS: ALL WEANING PARAMETERS DONE. PT TOLERATED WELL WITH RT. WILL CALL TO .
--- NOTE | 2018-10-02 15:03 | NUR ---
PAGE: DR. ALMANZA PAGED REGARDING WEANING PARAMETERS. WAITING FOR CALL BACK.
--- NOTE | 2018-10-02 15:09 | NUR ---
MD CALL BACK: DR. ALMANZA CALLED BACK. AFTER DELIVERY OF ALL WEANING PARAMETERS AND ABG VALUES, PT OK TO BE EXTUBATED. PAGED RT FOR NOTIFICATION. ALL ORDERS PLACED.
--- NOTE | 2018-10-02 15:29 | NUR ---
LAB: LAB STILL DID NOT RECEIVE ORDER FOR CYTOLOGY SAMPLE. SPOKE TO LAB AGAIN AND THEY EXPLAINED THAT CYTOLOGY ORDERS NEED TO BE DONE ON PAPER FORM AND ATTACHED TO SPECIMEN IN LAB. WILL NOTIFY HOUSE RECORDS SPECIALIST TO BRING SPECIMEN ORDER FORM AND WILL BRING TO LAB.
--- NOTE | 2018-10-02 15:31 | NUR ---
EXTUBATION: PT EXTUBATED WITH RT AND PRIMARY RN AT BEDSIDE. PT PLACED ONTO A COOL MIST MASK AT 40%, SAT UP IN BED, FOLLOWING COMMANDS, REMAINING CALM, ALERT AND ORIENTED, VITAL SIGNS IN NORMAL RANGE, DENIES PAIN AND TOLERATING EXTUBATION AT TIME. DENIES ANY SHORTNESS OF BREATH, RESPIRATORY RATE OF 21 AND APPEARS TO BE IN NO DISTRESS AT TIME. NO STRIDOR PRESENT. LUNG SOUNDS CLEAR.
--- NOTE | 2018-10-02 15:31 | NUR ---
PT EXTUBATED AND PLACED A 40% COOL MYST VIA AEROSOL MASK. PT IS AWAKE, ALERT, ORIENTED AND ABLE TO FOLLOW INDICATIONS. NO STRIDOR, SOB OR ANY OTHER RESPIRATORY DISTRESS NOTED. HR 110, BP 140/88, RR21 BPM. RESPIRATIONS ARE EVEN AND NONLABORED. WILL CONTINUE TO MONITOR PT. Addendum: 10/02/18 at 1602 by Marie Abel RT WEANING PARAMETERS: [id number], NIF -33, RR23 BPM, VTs 530. RSB 44.
[2018-10-02] MEDS ORDERED: IPRATROPIUM BROM 0.5 MG/2.5ML INH SOL NEB PRN (16:00)
--- NOTE | 2018-10-02 16:49 | NUR ---
CYTOLOGY: SPOKE TO LAB AND WENT TO LAB TO TURN IN FORM FOR CYTOLOGY. PER LAB, THEY RECEIVED A SPECIMEN FOR CYTOLOGY WITHOUT AN ORDER. ATTEMPTING TO FIND OUT WHAT ORDER TO BE PLACED.
--- NOTE | 2018-10-02 17:00 | NUR ---
ULTRASOUND: ULTRASOUND BEING DONE AT BEDSIDE. Addendum: 10/02/18 at 1950 by Mickie Broussard RN [facility]HEL[facility] PT.
--- NOTE | 2018-10-02 18:30 | NUR ---
CLOSING NOTE: PT IS ALERT AND ORIENTED X4, FOLLOWING COMMANDS AND VERBALIZING NEEDS AT TIME. DENIES ANY PAIN, SITTING UP AT BEDSIDE WITH FAMILY PRESENT. AWARE OF CALL LIGHT AND ROOM. ON 3L NC AT TIME AFTER RT HAD CHANGED OVER AROUND 1730 FROM THE COOL MIST MASK AT 40%. WHITLEY CATHETER STILL IN PLACE DRAINING URINE TO GRAVITY. SCD'S STILL IN PLACE. TPN INFUSING TO RIGHT UPPER ARM AT 70ML/HR. IV TO LEFT WRIST LEAKING AND REMOVED. IV TO LEFT HAND RUNNING .9NS AT 200ML/HR. MIDABDOMINAL INCISION STILL IN PLACE WITH DELMI DRAIN. NGT IN PLACE STILL TO LCS WITH SCANT AMOUNT OF BROWN/GREEN SECRETIONS DRAINING. PT UPDATED THAT SHIFT CHANGE WILL OCCUR SOON AND ALL PLAN OF CARE GIVEN.
--- NOTE | 2018-10-02 18:45 | NUR ---
CYTOLOGY/LAB: AFTER SPEAKING TO OR STAFF MEMBER, BLAKE BURROUGHS AND LAB, DETERMINED THAT PATHOLOGY RESULTS WERE OBTAINED IN OR, SENT AND RECEIVED BY LAB. CYTOLOGY REPORT FOR THE COLON FLUID THAT WAS PLACED IN THE SWAB WITH GEL WAS SENT, HOWEVER, SPECIMEN CANNOT BE RAN BY CYTOLOGY DUE TO SAMPLE IN THE SWAB STICK. DID PROVIDE LAB [employer] PHONE NUMBER TO CALL. ATTEMPTED TO CALL AND NO ANSWER. WANTING TO DOUBLE CHECK IS SPECIMEN THAT IS IN THE LAB CAN BE RAN FOR CYTOLOGY USING THE CURRENT SWAB STICK THAT WAS SENT. HOUSE FOLLOW UP CLERK AWARE AND WILL FOLLOW UP WITH [employer] TO CHECK TO SEE IF IT CAN BE RAN.
--- NOTE | 2018-10-02 19:30 | NUR ---
REPORT: REPORT GIVEN TO CALL CENTER DISPATCHER RN TO RESUME CARE OF PT.
--- NOTE | 2018-10-02 19:55 | NUR ---
MD CONTACT: SPOKE TO DR. CACERES AND PT IS OK TO DOWNGRADE TO [facility] STATUS.
[2018-10-02] MEDS ORDERED: TPN PER PHARMACY IV NR ×10 (20:00)
--- NOTE | 2018-10-02 20:00 | NUR ---
SHIFT OPENING NOTE PATIENT IS NOW [facility] STATUS. RECEIVED PATIENT AWAKE, ALERT AND ORIENTED X4. NO SOB, DISTRESS OR PAIN NOTED. ON 3L N/C POX 97%. PHYSICAL ASSESSMENT COMPLETED, SEE INTERVENTIONS. ARTERIAL LINE NOTED TO THE RIGHT WRIST. PATIENT IS NPO STATUS WITH NG TUBE TO LEFT NARES TO LCS. PATIENT IS STATUS POST EXPLORATORY LAP ON 10/01/18. DRESSING TO ABDOMEN IS C/D/I. NG TUBE ON RLQ DRAINING SEROSANGUINEOUS DRAINAGE. PICC ON ANIVAL INFUSING TPN. SCDS ON. IS AT BEDSIDE. PATIENT AWARE HOW TO USE IT. PATIENT REPOSITIONED FOR COMFORT.
--- NOTE | 2018-10-02 21:00 | NUR ---
ARTERIAL LINE REMOVED FROM RIGHT WRIST BY YESY ORTIZ RN. HOLDING PRESSURE FOR 10-15 MIN. PRESSURE DRESSING TO BE APPLIED.
--- NOTE | 2018-10-02 21:55 | NUR ---
SPOKE WITH [facility] TOILET ATTENDANT OVER PHONE RE: CYTOLOGY ON COLON FLUID WHICH WAS SWABBED USING MRSA SWAB PER [facility] THEY CANNOT PROCESS DT INCORRECT WAY OF COLLECTING SAMPLE, PER TOILET ATTENDANT TREVIAN THE SAMPLE WILL BE REJECTED DT INACCURATE RESULTS
--- NOTE | 2018-10-02 22:00 | NUR ---
REPORT GIVEN TO ZI RN WILL TAKE OVER CARE
[2018-10-03] VITALS: BP 138/69
[2018-10-03] MEDS: InsuLIN REG 1unit/0.01ml Soln (100units/ml) SC SCH ×4 (00:28→17:42)
--- NOTE | 2018-10-03 00:30 | NUR ---
DELMI DRAIN EMPTIED 85ML OF SEROUS SANGUINEOUS FLUID 400 ML OF GREEN BILE NOTED FROM NGT SUCTION CANISTER
--- NOTE | 2018-10-03 02:30 | NUR ---
IV insertion IV access obtained, via clean sterile technique by inserting 20 gauge catheter at right forearm after 1 attempt(s). IV secured properly. No trauma to site. Patient tolerated well. NOTE: IV to left hand dc, catheter intact, pressure dressing applied.
[2018-10-03 04:00] VITALS: BP 130/73
--- NOTE | 2018-10-03 04:45 | NUR ---
BLOOD DRAWN FROM RIGHT UPPER ARM PICC LINE FOR LABS THIS AM, PER HOSPITAL POLICY AND SEND TO LAB VIA BULLET
--- NOTE | 2018-10-03 04:50 | NUR ---
AM HYGIENE PATIENT GIVEN COMPLETE BED BATH USING WARM SOAPY WATER,SKIN INTEGRITY REASSESSED AT THIS TIME FOR CHANGES : NO CHANGES NOTED NEW OPTIFOAM PLACED ON SACRUM FOR PREVENTATIVE.NEW GOWN PLACED ON PATIENT AND PARTIAL BED LINEN CHANGE DONE. REPOSITIONED FOR COMFORT.
--- NOTE | 2018-10-03 05:00 | NUR ---
DRESSING CHANGE MID ABD INCISION CLEANSED AND NEW PRIMAPORE DRESSING APPLIED. INCISION HAS DAVID INTACT AND NO S/S OF INFECTION TO SITE. PATIENT TOLERATED WELL. RIGHT FOREARM SKIN TEAR DONE PER ORDERS.
[2018-10-03] MEDS: SODIUM CHLORIDE 0.9% 1,000 ML IV SCH ×5 (05:30→21:10)
[2018-10-03 05:40] LABS: Calcium 7.7 mg/dL (8.5-10.1); Chloride 110 mmol/L (98-107); Potassium 3.1 mmol/L (3.5-5.1); Sodium 140 mmol/L (136-145)
[2018-10-03 05:46] LABS: Alanine Aminotransferase 16 U/L (16-61); Albumin 1.9 g/dL (3.4-5.0); Alkaline Phosphatase 50 U/L (45-117); Anion Gap 4 (5-15); Aspartate Aminotransferase 16 U/L (15-37); BUN/Creatinine Ratio 17.5; Bilirubin, Total 0.3 mg/dL (0.2-1.0); Blood Urea Nitrogen 10 mg/dL (7-18); Carbon Dioxide 26 mmol/L (21-32); Glucose 108 mg/dL (74-106); Magnesium 1.9 mg/dL (1.6-2.6); Phosphorus 1.9 mg/dL (2.5-4.90); Total Protein 5.2 g/dL (6.4-8.2)
[2018-10-03 05:49] LABS: GFR African American > 60 mL/min; GFR Non-African American > 60 mL/min
[2018-10-03] MEDS: ACCU-CHEK COMFORT CURVE STRIP VI SCH ×4 (05:55→17:42)
[2018-10-03] MEDS: PANTOPRAZOLE 40 MG/10 ML VIAL IV SCH (05:55)
--- NOTE | 2018-10-03 06:33 | NUR ---
Respiratory note: ASSESSED PT FOR PRN TX PT WAS ASLEEP NO RESP DISTRESS NOTED. HR 107, RR 16, SPO2 95% ON 2L N/C. PT KNOWS TO HAVE RT PAGED IF TX IS NEEDED.
--- NOTE | 2018-10-03 07:04 | NUR ---
END OF SHIFT NOTE PATIENT RESTING IN BED WITH NO S/S OF DISTRESS/SOB OR PAIN. CALL LIGHT WITHIN EASY REACH . WILL ENDORSE CARE TO DAY SHIFT RN.
[2018-10-03 08:00] VITALS: BP 135/75
[2018-10-03] MEDS: cefTRIAXone 1GM/50ML D5W 50 ML IV SCH (09:05)
--- NOTE | 2018-10-03 10:00 | NUR ---
NO 1000 MEDS TO BE GIVEN, ANTIBIOTICS GIVEN 0900
[2018-10-03] MEDS: SODIUM CHLOR 0.9% PF (SALINE LOCK) 10ML VIAL/SYR IV SCH ×2 (10:08→21:12)
--- NOTE | 2018-10-03 11:00 | NUR ---
GOTTEN UP INTO THE CHAIR WITH MINIMAL HELP, PT STANDING BY , IF NEEDED, PATIENT STATES HE IS A LITTLE DIZZY AND WEAK HASN'T BEEN UP FOR 6 DAYS
--- NOTE | 2018-10-03 11:40 | NUR ---
gotten back into the bed, with minimal help able to stand and get up by himself
[2018-10-03 11:51] VITALS: BP 120/77
--- NOTE | 2018-10-03 12:00 | NUR ---
aware that he is still npo and not able to eat any food yet, patient states he is passing gas, but has no bm yet
[2018-10-03] MEDS: SODIUM FERR GLUC 62.5MG/5ML 125 MG in SODIUM CHL 0.9% 100 ML IV SCH (12:05)
--- NOTE | 2018-10-03 13:05 | NUR ---
watching tv, express to him that we will get him up again later to sit in the chair
[2018-10-03] MEDS ORDERED: POTASSIUM PHOSPHATE 44 MEQ in D5W 5% 250 ML IV ONE (13:45)
--- NOTE | 2018-10-03 14:05 | NUR ---
sitting up in bed watching the football game, no complaints left to go walk around
[2018-10-03 16:02] VITALS: BP 144/80
--- NOTE | 2018-10-03 16:09 | NUR ---
WATCHING TV, AT THE BEDSIDE, STATES HE IS DOING OKAY ASK IF HE WANTED TO GET UP TO THE CHAIR and stated he was doing okay didn't want to get up again
--- NOTE | 2018-10-03 17:05 | NUR ---
notified that patient was going to room 217A
--- NOTE | 2018-10-03 17:40 | NUR ---
report called to aldair villegas , patient placed on tele [id number], patient patient transferred to room 217a with all belongings, with the patient
--- NOTE | 2018-10-03 18:20 | NUR ---
SARAH DOWNGRADE PATIENT AWAKE AND ALERT SITTING UP IN BED. NO S/S OF DISTRESS OR SOB NOTED. PATIENT PLACED ON 3L VIA NC, NOTED NG TUBE TO LEFT NARE PLACED ON LIS. NOTED DELMI DRAIN WITH 50ML SEROSANGUINEOUS FLUID TO LLQ. ABDOMINAL DRESSING CLEAN DRY AND INTACT, REPLACED ABDOMINAL BINDER AT THIS TIME. UPDATED PATIENT ON POC AND ORIENTED TO ROOM AND UNIT. WILL CONTINUE TO MONITOR.
--- NOTE | 2018-10-03 19:27 | NUR ---
PT ASSESSED FOR PRN MED NEB TX. PT DENIES ANY RESPIRATORY DISTRESS. NO TX INDICATED. SPO2 93% ON 3L NC, HR 102. PT IS AWARE TO HAVE RT PAGED IF TX NEEDED.
[2018-10-03] MEDS ORDERED: TPN PER PHARMACY IV NR ×10 (20:00)
--- NOTE | 2018-10-03 20:30 | NUR ---
Opening Shift Note: A&Ox4, resting in bed. SARAH transfer on 10/03/18. Currently on 3LO2 via NC; patient states he does not wear at home; pain level 0/10, and at baseline: Independent without assistive devices; currently BR, working with PT to regain strength. Bed locked in lowest position, side rails up x2, call light within reach, and bed alarm on for patient safety. NG tube in left nare to LCS placed on 09/29/18: output is green and minimal. Patient is post Ex. 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 Talavera on 10/01/18. DELMI drain in RLQ placed during surgery with brown/red output to bulb suction. Midline abdominal dressing CDI with abdominal binder in place per order. Solitario inserted on 10/01/18 for strict I/O and prolonged immobilization. PICC line single lumen inserted on 09/30/18 in RUE; currently running TPN at 67 ml/hr. Patient was extubated on 10/02/18. Skin: generalized bruising present; skin tear on right forearm: optifoam CDI. IV 20 g in right forearm running NS at 120 ml/hr inserted on 10/03/18. POC discussed and questions answered. Will continue to round and reposition prn.
--- NOTE | 2018-10-03 21:30 | NUR ---
DELMI drain: 100 ml of brown/red output from bulb suction.
[2018-10-03 22:00] VITALS: BP 152/70
[2018-10-04] VITALS (7 sets, daily range): BP systolic 136–167; BP diastolic 71–81
[2018-10-04] MEDS: ACCU-CHEK COMFORT CURVE STRIP VI SCH ×4 (00:13→18:04)
--- NOTE | 2018-10-04 00:30 | NUR ---
DELMI drain: 75 ml of brown/red output from bulb suction.
--- NOTE | 2018-10-04 01:06 | NUR ---
Reinserted NG tube: Patient called and stated he accidently pulled at his NG tube in left nare while repositioning. Tube was reinserted and new dressing hold placed. Will obtain CXR to confirm placement before starting to LCS again.
[2018-10-04] MEDS: SODIUM CHLORIDE 0.9% 1,000 ML IV SCH ×3 (04:17→21:00)
--- NOTE | 2018-10-04 05:40 | NUR ---
NG tube to LCS restarted after confirmation from chest xray for placement.
[2018-10-04] MEDS: InsuLIN REG 1unit/0.01ml Soln (100units/ml) SC SCH ×4 (05:56→18:00)
[2018-10-04] MEDS: PANTOPRAZOLE 40 MG/10 ML VIAL IV SCH (05:57)
--- NOTE | 2018-10-04 05:58 | NUR ---
DELMI drain: 100 ml output of brown/yellow drainage from bulb suction.
--- NOTE | 2018-10-04 05:59 | NUR ---
Total of 150 ml of dark green output from NG tube for shift.
[2018-10-04 06:25] LABS: Anion Gap 5 (5-15); Blood Urea Nitrogen 10 mg/dL (7-18); Calcium 8.5 mg/dL (8.5-10.1); Carbon Dioxide 25 mmol/L (21-32); Chloride 108 mmol/L (98-107); Glucose 138 mg/dL (74-106); Magnesium 2.1 mg/dL (1.6-2.6); Potassium 3.3 mmol/L (3.5-5.1); Sodium 138 mmol/L (136-145)
[2018-10-04 06:29] LABS: Alanine Aminotransferase 16 U/L (16-61); Alkaline Phosphatase 57 U/L (45-117); Aspartate Aminotransferase 13 U/L (15-37); BUN/Creatinine Ratio 16.1; Bilirubin, Total 0.3 mg/dL (0.2-1.0); Phosphorus 2.9 mg/dL (2.5-4.90); Total Protein 5.8 g/dL (6.4-8.2)
[2018-10-04 06:35] LABS: GFR African American > 60 mL/min; GFR Non-African American > 60 mL/min
--- NOTE | 2018-10-04 07:55 | NUR ---
Opening Shift Note Assumed care of patient, awake, alert, and oriented x4. Patient has no complaints of pain at this time. Patient has right upper arm PICC line single lumen running TPN at 67mL/hr, patient tolerating well. Patient has right forearm 20g running NS at 120mL/hr, patient tolerating well. Patient is on 3L NC with no S/S of distress/SOB. Patient has medial abdominal incision, dressing CDI and DELMI drain draining serosanguineous drainage, patient tolerating well. Patient has NG tube to suction with dark green output. Patient has perla patent and draining clear yellow urine. Patient has skin tear to right forearm, dressing CDI. Instructed on POC and to simona for assist PRN, will continue to monitor for changes Q1hr and PRN. Bed in lowest locked position, call light within reach.
[2018-10-04] MEDS: cefTRIAXone 1GM/50ML D5W 50 ML IV SCH (08:28)
--- NOTE | 2018-10-04 09:10 | NUR ---
RT NOTE: PRN BREATHING TX. NOT INDICATED AT THIS TIME. PT. DENIES ANY SOB. PT. HR 89, RR 16, POX 94% ON 2L N/C. PT. AWARE TO NOTIFY RN IF BREATHING TX. IS INDICATED.
--- NOTE | 2018-10-04 09:52 | NUR ---
DELMI DRAIN 75mL yellow, serous fluid drained from DELMI drain.
[2018-10-04] MEDS: SODIUM CHLOR 0.9% PF (SALINE LOCK) 10ML VIAL/SYR IV SCH ×2 (10:02→22:44)
[2018-10-04] MEDS: POTASSIUM CHL 20MEQ/100ML 100 ML IV SCH ×2 (10:29→12:28)
--- NOTE | 2018-10-04 10:54 | NUR ---
PT PATIENT WORKING WITH PHYSICAL THERAPY. NO S/S OF DISTRESS NOTED. WILL CONTINUE TO MONITOR.
--- NOTE | 2018-10-04 12:07 | NUR ---
DELMI DRAIN 50mL serosanguineous fluid drained from DELMI drain.
--- NOTE | 2018-10-04 12:40 | NUR ---
DR. ALMANZA AT BEDSIDE DR. ALMANZA AT BEDSIDE DISCUSSING POC WITH PATIENT. PER MD, NG TUBE TO BE REMOVED. ORDERS READ BACK AND VERIFIED.
--- NOTE | 2018-10-04 12:51 | NUR ---
NGT removal NGT removed per Dr. Talavera order following explanation and instruction to patient. Patient verbalized understanding prior to removal. Patient tolerated well.
--- NOTE | 2018-10-04 14:57 | NUR ---
DELMI DRAIN 70mL serosanguineous fluid drained from DELMI drain.
--- NOTE | 2018-10-04 15:03 | NUR ---
Nutrition Follow-up Notes Wt.: 94.5 kg today. Pt's successfully extubated () on oxygen via nasal cannula, asleep, no immediate family members at bedside during rounds this morning. Pt's no signs of distress noted earlier,currently NPO with TPN @ 67 ml/hr providing 1740 kcal, 80 gms proteins, 1420 NPCs and 23% Fat. Pt with adequate PN support d/t mod initiation rate delivery of concentrated formula aeb current PN infusion meets 92% to 99% of est caloric needs and 75% to 105% of est protein needs. Noted pt's to receive tonight another TPN @ 71 ml/hr providing 1780 kcal, 90 gms proteins, 1420 NPCs and 22% Fat. Est. Needs ABW [id number] kcal (23-25 kcal/kgBW), 76-106 gms pro (1.0-1.4 gms/kgBW reassessed d/t severe hypoalbuminemia, s/p surgery). Will continue to monitor pertinent labs and reassess nutrient need prn Labs: Gluc 138 H, Cl 108 H, K 3.3 L, AST 13 L, Tpro 5.8 L, Alb 2.0 L; Prealb 14.8 H, Trig 82 wnl Skin: Reno scale 19, mod risk, pt's medial abdomen incision dry and intact dressing per engineering research manager. GI: Pt had 1 BM 10/01/18 per engineering research manager. PES: Partially resolved: Increased nutrient needs r/t current/chronic medical condition aeb s/p surgery, intubated, with SBO, NPO on PN support Altered nutrition related lab values r/t current/chronic medical condition aeb hyperglycemia, mild hypoalb, hypocalcemia Will continue to monitor NPO status, PN tolerance, skin status, pertinent labs and weight trend. F/u in 2 to 3 days. Rec.: 1.) If still NPO, continue PN support that meets at least 75% of nutrient needs. 2.) Advance gradually to oral diet when medically appropriate. 3.) Refer pt to RD for further nutrition education and weight monitoring upon discharge. 4.) Continue current plan of care.
[2018-10-04] MEDS: SODIUM FERR GLUC 62.5MG/5ML 125 MG in SODIUM CHL 0.9% 100 ML IV SCH (15:05)
--- NOTE | 2018-10-04 18:51 | NUR ---
END OF SHIFT PATIENT RESTING IN BED. NO S/S OF DISTRESS. INSTRUCTED PATIENT TO CALL PRN. BED IN LOWEST LOCKED POSITION, CALL LIGHT WITHIN REACH. ENDORSED CARE TO HEIKE OLMOS.
--- NOTE | 2018-10-04 19:40 | NUR ---
Opening Shift Assumed care of patient, alert/oriented, respirations even and unlabored, no complains of pain. Dressing to mid abdomen dry and intact with DELMI draining to serosanguinous output, binder on, perla draining to light erick urine, no complains of pain at this time. Updated on POC, instructed to call for assist prn, patient verbalized understanding, call light within reach, will continue to monitor
[2018-10-04] MEDS ORDERED: TPN PER PHARMACY IV NR ×10 (20:00)
--- NOTE | 2018-10-04 22:37 | NUR ---
Respiratory note: PT SEEN FOR PRN MED NEB TX AT [phone]. TX NOT INDICATED AT THIS TIME, HE IS SLEEPING AT THIS TIME. HR 89 RR 20 POX 94% ON 3L NASAL CANNULA.
[2018-10-05] MEDS: ACCU-CHEK COMFORT CURVE STRIP VI SCH ×3 (00:27→12:05)
[2018-10-05] MEDS: SODIUM CHLORIDE 0.9% 1,000 ML IV SCH (05:00)
[2018-10-05 05:02] VITALS: BP 127/66
[2018-10-05 05:40] LABS: Calcium 8.6 mg/dL (8.5-10.1); Chloride 108 mmol/L (98-107); Potassium 3.6 mmol/L (3.5-5.1); Sodium 140 mmol/L (136-145)
[2018-10-05 05:46] LABS: Alanine Aminotransferase 14 U/L (16-61); Albumin 1.9 g/dL (3.4-5.0); Alkaline Phosphatase 57 U/L (45-117); Anion Gap 6 (5-15); Aspartate Aminotransferase 16 U/L (15-37); BUN/Creatinine Ratio 14.5; Bilirubin, Total 0.3 mg/dL (0.2-1.0); Blood Urea Nitrogen 10 mg/dL (7-18); Carbon Dioxide 26 mmol/L (21-32); Glucose 109 mg/dL (74-106); Magnesium 2.1 mg/dL (1.6-2.6); Total Protein 5.8 g/dL (6.4-8.2)
[2018-10-05 05:49] LABS: GFR African American > 60 mL/min; GFR Non-African American > 60 mL/min
[2018-10-05] MEDS: InsuLIN REG 1unit/0.01ml Soln (100units/ml) SC SCH ×3 (06:00→12:00)
[2018-10-05] MEDS: PANTOPRAZOLE 40 MG/10 ML VIAL IV SCH (06:20)
--- NOTE | 2018-10-05 06:27 | NUR ---
Per patient he had another bowel movement today, drained 280 ml of serosanguinous output from DELMI
--- NOTE | 2018-10-05 07:55 | NUR ---
Opening Shift Note Assumed care of patient, awake, alert, and oriented x4. Patient has no complaints of pain at this time. Patient has right upper arm PICC line single lumen running TPN at 71mL/hr, patient tolerating well. Patient has right forearm 20g running NS at 120mL/hr, patient tolerating well. Patient is on 3L NC with no S/S of distress/SOB. Patient has medial abdominal incision, dressing CDI and DELMI drain draining yellow drainage, patient tolerating well. Patient has perla patent and draining clear yellow urine. Patient has skin tear to right forearm, dressing CDI. Instructed on POC and to simona for assist PRN, will continue to monitor for changes Q1hr and PRN. Bed in lowest locked position, call light within reach.
--- NOTE | 2018-10-05 07:56 | NUR ---
DELMI DRAIN 50mL yellow, serous fluid drained from DELMI drain.
[2018-10-05 09:08] LABS: Basophils # (auto) 0.1 uL; Eosinophils # (auto) 0.2 uL; Hemoglobin 10.2 g/dL (13.5-17.5); Monocytes # (auto) 1.1 uL; Neutrophils # (auto) 8.6 uL; Red Cell Distribution Width 18.1 % (11.8-14.3)
[2018-10-05 09:09] VITALS: BP 142/75
[2018-10-05 09:09] LABS: Basophils % (auto) 0.8 % (0.0-2.0); Eosinophils % (auto) 1.8 % (0.0-7.0); Hematocrit 31.7 % (41.0-53.0); Lymphocytes # (auto) 1.3 uL; Lymphocytes % (auto) 11.4 % (10.0-50.0); Mean Corpuscular Volume 81.3 fL (80.0-100.0); Monocytes % (auto) 9.7 % (0.0-12.0); Neutrophils % (auto) 76.3 % (37.0-80.0); Platelet Count (auto) 291 10^3/uL (140-450); White Blood Cell 11.2 10^3/uL (4.4-10.8)
[2018-10-05] MEDS: cefTRIAXone 1GM/50ML D5W 50 ML IV SCH (09:29)
[2018-10-05] MEDS: SODIUM CHLOR 0.9% PF (SALINE LOCK) 10ML VIAL/SYR IV SCH ×2 (09:30→21:53)
--- NOTE | 2018-10-05 09:37 | NUR ---
ANGI SPOKE TO DR. CACERES REGARDING WHITLEY CATHETER DC. PER , ANGUS TO ORTIZ WHITLEY. ORDERS READ BACK AND VERIFIED.
--- NOTE | 2018-10-05 09:40 | NUR ---
Perla catheter dc'd Order to discontinue perla catheter. Perla dc'd with clean technique following deflation of balloon. Patient tolerated well with no complaints of pain. Continue care.
--- NOTE | 2018-10-05 11:39 | NUR ---
ENDORSED CARE ENDORSED CARE TO HEIKE CHOUDHURY FOR CONTINUATION OF CARE.
--- NOTE | 2018-10-05 11:41 | NUR ---
SAVANAH ALMANZA FOR THE CONFIRMATION OF THE DIET BASE ON HIS POC WRITTEN ON HIS NOTES
--- NOTE | 2018-10-05 11:45 | NUR ---
MD ALMANZA CALLED BACK AND INFORMED HIM THAT PER PATIETN HE HAD A BM THIS MORNING AT 0430 AND HAD TWICE YESTERDAY TOO. PER MD ALMANZA PUT PATIENT ON FULL LIQUID DIET AND ADVANCE DIET TOLERATED. WILL PUT ORDERS IN
--- NOTE | 2018-10-05 12:00 | NUR ---
EMPTIED DELMI DRAIN 80ML PINK DRAINAGE
[2018-10-05] MEDS: SODIUM FERR GLUC 62.5MG/5ML 125 MG in SODIUM CHL 0.9% 100 ML IV SCH (13:00)
[2018-10-05 13:30] VITALS: BP 141/73
--- NOTE | 2018-10-05 13:50 | NUR ---
PATIENT SEEN AMBULATING WITH PT IN THE HALLWAY
--- NOTE | 2018-10-05 15:28 | NUR ---
SPOKE WITH MD CACERES AT THE STATION AND INFORMED HIM THAT THE PATIENT IS ALREADY AT FULL LIQUID DIET AND TO ADVANCE IT TOLERATED PER MD ALMANZA. MD CACERES SAID TO DISCONTINUE THE TPN AND THE IVF HE DOES NOT NEED IT ANYMORE.
--- NOTE | 2018-10-05 15:42 | NUR ---
EMPTIED DELMI DRAIN 90ML PINK DRAINAGE
[2018-10-05 17:36] VITALS: BP 148/69
--- NOTE | 2018-10-05 19:36 | NUR ---
RECEIVED PATIENT FROM DAY SHIFT RN. PATIENT RESTING IN BED. NO S/S OF DISTRESS NOTED. DENIED PAIN FOR NOW. DRESSING ON ABD C/D/I. DELMI GARCIAAN IN PLACE DRAINING GRAVITY. POC INSTRUCTED AND ENCOURAGED PATIENT TO CALL FOR CHEMICAL TECHNICIAN IF NEEDED. BED IN LOWEST POSITION WITH SIDE RAILS UP X 2. CALL WORLEY WITHIN REACH. ALARM ON. CONTINUE TO MONITOR FOR CHANGES Q1H AND PRN .
[2018-10-05] MEDS ORDERED: TPN PER PHARMACY IV NR ×9 (20:00)
--- NOTE | 2018-10-05 21:53 | NUR ---
EMPTIED DELMI DRAINING 50ML. CONTINUE TO MONITOR.
[2018-10-05 22:00] VITALS: BP 157/77
--- NOTE | 2018-10-05 22:16 | NUR ---
Respiratory note: PT SEEN AND ASSESSED FO PRN MED NEB TX AT 2216. TX NOT INDICATED AT THIS TIME. PT WAS ASLEEP AT THIS TIME WITH THE CURTAIN CLOSED IN HIS ROOM. NO DISTRESS NOTED AT THIS TIME. HR 81 RR 16 POX 95% ON 2L NASAL CANNULA.
--- NOTE | 2018-10-06 02:59 | NUR ---
PATIENT SLEEPING. NO S/S OF DISTRESS NOTED. BED IN LOWEST POSITION. ALARM ON. CALL WORLEY WITHIN REACH. CONTINUE CARE.
[2018-10-06 04:50] VITALS: BP 144/75
[2018-10-06 05:30] LABS: Anion Gap 6 (5-15); Blood Urea Nitrogen 10 mg/dL (7-18); Calcium 8.7 mg/dL (8.5-10.1); Carbon Dioxide 25 mmol/L (21-32); Chloride 108 mmol/L (98-107); Glucose 84 mg/dL (74-106); Magnesium 2.1 mg/dL (1.6-2.6); Potassium 4.2 mmol/L (3.5-5.1); Sodium 139 mmol/L (136-145)
[2018-10-06 05:33] LABS: Alanine Aminotransferase 44 U/L (16-61); Alkaline Phosphatase 79 U/L (45-117); Aspartate Aminotransferase 57 U/L (15-37); BUN/Creatinine Ratio 15.4; Bilirubin, Total 0.4 mg/dL (0.2-1.0); Phosphorus 3.5 mg/dL (2.5-4.90); Total Protein 5.9 g/dL (6.4-8.2)
[2018-10-06 05:42] LABS: GFR African American > 60 mL/min; GFR Non-African American > 60 mL/min
--- NOTE | 2018-10-06 06:00 | NUR ---
PATIENT RESTING IN BED. NO S/S OF DISTRESS NOTED. BED IN LOWEST POSITION. ALARM ON. CALL WORLEY WITHIN REACH. CONTINUE CARE.
--- NOTE | 2018-10-06 06:08 | NUR ---
EMPTIED DELMI DRAINING 100ML. CONTINUE TO MONITOR.
[2018-10-06] MEDS: PANTOPRAZOLE 40 MG/10 ML VIAL IV SCH (06:16)
--- NOTE | 2018-10-06 07:30 | NUR ---
Opening Shift Note Assumed care of patient, awake and alert. No S/S of distress/SOB or pain. Instructed on POC and to call for assist PRN, will continue to monitor for changes Q1hr and PRN.
[2018-10-06 09:00] VITALS: BP 145/76
--- NOTE | 2018-10-06 10:08 | NUR ---
RT NOTE: WENT TO PTS ROOM TO ASSESS FOR PRN BREATHING TX, PT SITTING UP IN BED, NO S/S OF SOB OR DISTRESS NO INDICATION FOR TX AT THIS TIME. 92% ON RA, HR 86, RR 16, PT AWARE TO CALL IF HAVING SOB WILL CONTINUE TO MONITOR PT.
[2018-10-06] MEDS: SODIUM CHLOR 0.9% PF (SALINE LOCK) 10ML VIAL/SYR IV SCH (10:25)
[2018-10-06] MEDS: cefTRIAXone 1GM/50ML D5W 50 ML IV SCH (10:25)
--- NOTE | 2018-10-06 10:42 | NUR ---
Manuel drain output. 70 Ml of serosanguineous drainage. no odor noted.
--- NOTE | 2018-10-06 12:15 | NUR ---
Patient informed me that Dr. Talavera came to round on him at the bedside and cleared him for discharge. According to the patient Dr. Talavera will contact Dr. Lee and let him know that from a surgical standpoint the patient is cleared for discharge. Awaiting for offical orders from Dr. Lee.
[2018-10-06] MEDS: SODIUM FERR GLUC 62.5MG/5ML 125 MG in SODIUM CHL 0.9% 100 ML IV SCH (12:47)
[2018-10-06 13:00] VITALS: BP 144/79
--- NOTE | 2018-10-06 13:00 | NUR ---
Nutrition Follow-up Notes Wt.: 94.7 kg Pt's sleeping with no family by beside. pt is now off PN support diet advanced to soft with no PO recorded yet as pt advanced recently. per records pt now passing gas and having BMs. pt with no distress noted per nursing Est. Needs ABW [id number] kcal (23-25 kcal/kgBW), 76-106 gms pro (1.0-1.4 gms/kgBW reassessed d/t severe hypoalbuminemia, s/p surgery). Will continue to monitor pertinent labs and reassess nutrient need prn Labs: ALB 2.0 L. rest lab wnl for today Skin: Reno scale 18, mod risk, pt's medial abdomen incision dry and intact dressing per transportation inspector. GI: Pt had 1 BM today per transportation inspector. PES: Partially resolved: Increased nutrient needs r/t current/chronic medical condition aeb s/p surgery, intubated, with SBO, NPO on PN support Altered nutrition related lab values r/t current/chronic medical condition aeb hyperglycemia, mild hypoalb, hypocalcemia Will continue to monitor PO intake, skin status, pertinent labs and weight trend. F/u in 3-5 days. Rec.: 1.) Consider prostat 1 packet bid. 2) consider ensure Enlive 1 carton bid if PO is low. 3) Refer pt to RD for further nutrition education and weight monitoring upon discharge. 4.) Continue current plan of care.
[2018-10-06 17:00] VITALS: BP 149/75
[2018-10-06 17:07] VITALS: BP 149/75
[2018-10-06 18:20] VITALS: BP 149/75
--- NOTE | 2018-10-06 18:20 | NUR ---
Discharge instructions given as ordered. Encourage to follow up with PMD as instructed. All questions and concerns addressed. Patient verbalized understanding. IV removed with catheter intact, pressure dressing applied. MRSA swab obtained and wound photos taken. Serous drainage of 25ml emptied from DELMI drain. Day total of 95ml that i emptied from drain. Patient ambulated to vehicle with all personal belongings, accompanied by staff and family member. No distress noted at time of departure.
== END 2018-10-06 19:03 | disposition home or self-care (01) | DRG 330 ==
LOC: ER 18:56 → OVERFLOW 09-29 01:59 → EAST 09-29 02:40 → DOU IN ICU 10-01 16:28 → TELE-CENTR 10-03 17:39 → CENTRAL 10-05 11:48
PROVIDERS: ADMIT Nurse Practitioner; ATTEND Internal Medicine Cardiovascular Disease
PROC: 0DBV0ZX Excision of Mesentery, Open Approach, Diagnostic (ICD-10-PCS; 2018-10-01)
PROC: 5A1935Z Respiratory Ventilation, Less than 24 Consecutive Hours (ICD-10-PCS; 2018-10-01)
PROC: 0BH17EZ Insertion of Endotracheal Airway into Trachea, Via Natural or Artificial Opening (ICD-10-PCS; 2018-10-01)
PROC: 0DTF0ZZ Resection of Right Large Intestine, Open Approach (ICD-10-PCS; principal; 2018-10-01 12:01)
DX: C18.9 Malignant neoplasm of colon, unspecified (principal); K56.609 Unspecified intestinal obstruction, unspecified as to partial versus complete obstruction; C78.7 Secondary malignant neoplasm of liver and intrahepatic bile duct; F17.210 Nicotine dependence, cigarettes, uncomplicated; I10 Essential (primary) hypertension; J44.9 Chronic obstructive pulmonary disease, unspecified; D50.0 Iron deficiency anemia secondary to blood loss (chronic)
CPT/HCPCS: 36415; 36569; 36600; 71045; 71260; 74176; 74250; 80048; 80053; 81001; 82040; 82150; 82378; 82607; 82728; 82746; 82805; 82962; 83540; 83550; 83690; 83735; 84100; 84478; 84484; 85025; 85610; 85730; 86304; 86850; 86900; 86901; 87070; 87081; 87205; 93005; 94002; 94003; 96365; 96368; 96375; A6257; C9113; G0378; J0696; J1815; J2250; J2405; J2704; J3480; J3490; J7060

== ENCOUNTER 2018-10-08 09:14 | Inpatient (IN) | payer BC ==
[~2018-10-08] VITALS: Ht 177.8 cm; Wt 87.3 kg
[~2018-10-08 09:14] MED LIST: LISI2.5T47 PO
[2018-10-08] MEDS ORDERED: SODIUM CHLORIDE 0.9% 1,000 ML IV ONE ×3 (10:06→11:55)
[2018-10-08 11:14] LABS: Basophils # (auto) 0.1 uL; Eosinophils # (auto) 0.1 uL; Hemoglobin 11.3 g/dL (13.5-17.5); Lymphocytes # (auto) 1.5 uL; Mean Corpuscular Volume 82.2 fL (80.0-100.0)
[2018-10-08 11:16] LABS: Basophils % (auto) 0.4 % (0.0-2.0); Eosinophils % (auto) 0.9 % (0.0-7.0); Hematocrit 35.3 % (41.0-53.0); Lymphocytes % (auto) 9.6 % (10.0-50.0); Mean Corpuscular Hemoglobin 26.3 pg (28.0-32.0); Monocytes # (auto) 1.2 uL; Monocytes % (auto) 8.1 % (0.0-12.0); Neutrophils # (auto) 12.4 uL; Platelet Count (auto) 359 10^3/uL (140-450); Red Cell Distribution Width 19.5 % (11.8-14.3); White Blood Cell 15.3 10^3/uL (4.4-10.8)
[2018-10-08 11:26] LABS: Alanine Aminotransferase 45 U/L (16-61); Albumin 2.3 g/dL (3.4-5.0); Anion Gap 5 (5-15); Aspartate Aminotransferase 31 U/L (15-37); BUN/Creatinine Ratio 12.9; Blood Urea Nitrogen 11 mg/dL (7-18); Carbon Dioxide 29 mmol/L (21-32); Chloride 104 mmol/L (98-107); GFR African American > 60 mL/min; GFR Non-African American > 60 mL/min; Glucose 91 mg/dL (74-106); Potassium 3.8 mmol/L (3.5-5.1); Sodium 138 mmol/L (136-145)
[2018-10-08 11:29] LABS: Lactic Acid w/Reflex 2.3 mmol/L (0.4-2.0)
[2018-10-08 11:30] LABS: Alkaline Phosphatase 97 U/L (45-117); Bilirubin, Total 0.4 mg/dL (0.2-1.0); Total Protein 6.9 g/dL (6.4-8.2)
[2018-10-08 11:34] LABS: INR 0.94 (0.9-1.15); Partial Thromboplastin Time 27.1 sec (23.78-33.04); Prothrombin Time 10.1 sec (9.27-12.13)
[2018-10-08] MEDS ORDERED: PIPERACILLIN-TAZOB 3.375GM 100 ML IV ONE (12:00)
[2018-10-08] MEDS ORDERED: VANCOMYCIN 1GM/250ML 250 ML IV ONE (12:00)
[2018-10-08 14:34] LABS: Urine Bacteria NONE SEEN /hpf (None Seen); Urine Blood Negative /uL (Negative); Urine Mucus FEW (None Seen); Urine Specific Gravity 1.018 (1.001-1.035); Urine WBC 1 /hpf (0 - 3)
[2018-10-08] MEDS ORDERED: MORPHINE SULFATE 4 MG/ML SYR/VIAL IV PRN (17:45)
[2018-10-08] MEDS ORDERED: HYDROcodone-ACET 10/325MG TAB PO PRN (17:45)
[2018-10-08] MEDS ORDERED: NITROGLYCERIN 0.4 MG SL TAB SL PRN (17:45)
[2018-10-08] MEDS: SODIUM CHLORIDE 0.9% 1,000 ML IV SCH (18:13)
[2018-10-08] MEDS: metroNIDAZOLE 500MG/100ML 100 ML IV SCH (18:13)
[2018-10-08 22:00] VITALS: BP 126/71
[2018-10-08] MEDS: PIPERACILLIN-TAZO 4.5GM 100 ML IV SCH (22:15)
[2018-10-08] MEDS: ALBUTEROL SULF 2.5 MG/0.5ML(0.5%) NEB SOLN NEB SCH (23:01)
[2018-10-09 02:37] VITALS: BP 126/71
[2018-10-09 05:26] VITALS: BP 126/71
[2018-10-09] MEDS: PIPERACILLIN-TAZO 4.5GM 100 ML IV SCH ×3 (06:00→22:00)
[2018-10-09] MEDS: metroNIDAZOLE 500MG/100ML 100 ML IV SCH ×4 (06:00→20:00)
[2018-10-09] MEDS: ALBUTEROL SULF 2.5 MG/0.5ML(0.5%) NEB SOLN NEB SCH ×3 (06:28→22:38)
--- NOTE | 2018-10-09 06:47 | NUR ---
Shift Note The patient had an uneventful night, tolerated treatments well, had no complaints. Completed the admission just after change of shift. The patient was able to sleep most of the night, denied pain from the surgical incision site. Will continue to monitor.
[2018-10-09] MEDS: SODIUM CHLORIDE 0.9% 1,000 ML IV SCH ×2 (07:05→20:25)
--- NOTE | 2018-10-09 07:30 | NUR ---
Opening Shift Note Assumed care of patient, awake, alert, and oriented x4. No S/S of distress/SOB or pain. IV in left AC 20 gauge asymptomatic, intact, patent, and infusing normal saline at 75 mL/hour. IV in right AC 20 gauge asymptomatic, patent, intact, and saline locked. Bed locked and in lowest position and call light is within reach. Instructed on POC and to call for assist PRN, and patient verbalized understanding. Will continue to monitor for changes Q1hr and PRN.
[2018-10-09 09:00] VITALS: BP 143/71
[2018-10-09] MEDS: LISINOPRIL 5 MG TAB PO SCH (10:06)
[2018-10-09 13:00] VITALS: BP 126/74
[2018-10-09] MEDS ORDERED: GASTROGRAFIN 30 ML SOL ONE (13:32)
[2018-10-09] MEDS ORDERED: IOHEXOL 300 MG/ML 100ML BOTTLE IJ ONE (15:09)
--- NOTE | 2018-10-09 16:00 | NUR ---
PATIENT TAKEN TO CT VIA WHEELCHAIR.
[2018-10-09 17:00] VITALS: BP 128/68
--- NOTE | 2018-10-09 17:00 | NUR ---
PATIENT RETURNED BACK TO HIS ROOM FROM CT VIA WHEELCHAIR
[2018-10-09 22:00] VITALS: BP 125/70
[2018-10-10] MEDS: metroNIDAZOLE 500MG/100ML 100 ML IV SCH ×4 (00:18→18:00)
[2018-10-10 04:36] VITALS: BP 125/63
[2018-10-10] MEDS: PIPERACILLIN-TAZO 4.5GM 100 ML IV SCH ×3 (05:18→22:19)
[2018-10-10] MEDS: ALBUTEROL SULF 2.5 MG/0.5ML(0.5%) NEB SOLN NEB SCH ×4 (06:39→22:59)
--- NOTE | 2018-10-10 07:00 | NUR ---
Opening Shift Note Assumed care of patient, awake, alert, and oriented x4. No S/S of distress/SOB or pain. IV in left AC 20 gauge asymptomatic, intact, patent, and infusing normal saline at 75 mL/hour. IV in right AC 20 gauge asymptomatic, intact, patent, and saline locked. Bed locked and in lowest position and call light is within reach. Instructed on POC and to call for assist PRN, and patient verbalized understanding. Will continue to monitor for changes Q1hr and PRN.
--- NOTE | 2018-10-10 07:30 | NUR ---
PAGED DR. ALMANZA
--- NOTE | 2018-10-10 07:35 | NUR ---
RECEIVED CALL BACK FROM DR. ALMANZA. NEW ORDERS RECEIVED TO REMOVE DAVID FROM PATIENTS SURGICAL INCISION IN ABDOMEN.
[2018-10-10 09:00] VITALS: BP 124/96
[2018-10-10] MEDS: SODIUM CHLORIDE 0.9% 1,000 ML IV SCH (09:45)
--- NOTE | 2018-10-10 10:00 | NUR ---
REMOVED DAVID FROM PATIENT ABDOMINAL INCISION. PATIENT TOLERATED WELL. STERI STRIPS APPLIED.
[2018-10-10] MEDS: LISINOPRIL 5 MG TAB PO SCH (10:17)
[2018-10-10 13:00] VITALS: BP 130/68
[2018-10-10 17:00] VITALS: BP 130/71
--- NOTE | 2018-10-10 18:00 | NUR ---
IV removal LEFT ARM 20 GAUGE IV DC'd with sterile technique, catheter fully intact. Pressure dressing applied to site. Patient tolerated procedure well.
--- NOTE | 2018-10-10 19:30 | NUR ---
Opening Shift Note Assumed care of patient, sleeping soundly on L side. No S/S of distress/SOB or pain. Will discuss POC w/a; this RN will continue to monitor for changes PRN. Bed in low position; HOB in semi-Dennis's. Nurse call light in bed with pt.
[2018-10-10 22:00] VITALS: BP 119/71
[2018-10-11] MEDS: metroNIDAZOLE 500MG/100ML 100 ML IV SCH ×3 (00:07→11:32)
[2018-10-11] MEDS: SODIUM CHLORIDE 0.9% 1,000 ML IV SCH (00:08)
[2018-10-11 05:00] VITALS: BP 116/68
[2018-10-11] MEDS: PIPERACILLIN-TAZO 4.5GM 100 ML IV SCH ×2 (06:00→13:56)
[2018-10-11] MEDS: ALBUTEROL SULF 2.5 MG/0.5ML(0.5%) NEB SOLN NEB SCH ×2 (06:04→15:06)
--- NOTE | 2018-10-11 08:30 | NUR ---
POST OP DRESSING CHANGED ON LOWER ABDOMEN AND DELMI DRAIN SITE. DRESSING MODERATELY SOAKED WITH PINK COLOR FLUID.
[2018-10-11 09:00] VITALS: BP 134/71
[2018-10-11] MEDS: LISINOPRIL 5 MG TAB PO SCH (09:05)
--- NOTE | 2018-10-11 11:03 | NUR ---
SPOKE WITH DR. ALMANZA MADE AWARE POST OP WOUND IS STILL DRAINING AND WITH 2 DAVID LEFT, HE ORDERED TO REMOVE THE DAVID AND HE CLEARED THE PT FOR DISCHARGE AND TO FOLLOW UP WITH HIM IN 2 WEEKS.
--- NOTE | 2018-10-11 12:14 | NUR ---
DR. CACERES NOTIFIED, PT WAS CLEARED BY DR. ALMANZA FOR DISCHARGE WITH ANTIBIOTIC.
[2018-10-11 13:00] VITALS: BP 129/78
--- NOTE | 2018-10-11 15:06 | NUR ---
Respiratory note: PT REFUSED METANEB TX, STATES HE IS ABOUT TO BE DISCHARGED.. HR 78, RR 16, POX 93% ON RA. B/S CLEAR DIMINISHED BILATERALLY. NO RESPIRATORY DISTRESS NOTED. FAMILY AT BEDSIDE.
--- NOTE | 2018-10-11 16:30 | NUR ---
SPOKE WITH DR. CACERES HE ORDERED TO DISCHARGE THE PT AND CALL IN PRESCRIPTION FOR KEFLEX 500MG QID FOR 7 DAYS. FOLLOW UP WITH HIM ON Thursday10/13/18 AT 9AM.
[2018-10-11 16:43] VITALS: BP 134/71
--- NOTE | 2018-10-11 16:51 | NUR ---
ANTIBIOTIC PRESCRIPTION CALLED TO [facility] [phone] CACERES. KEFLEX 500MG QID FOR 7 DAYS.
--- NOTE | 2018-10-11 17:45 | NUR ---
WOUND DRESSING CHANGED.
--- NOTE | 2018-10-11 17:52 | NUR ---
Discharge instructions given as ordered. Encourage to follow up with DR. CACERES ON 10/13/18 AT 9AM, FOLLOW UP WITH DR. ALMANZA ON 10/26/18 AT 9:30AM TEL# AND ADDRESS PROVIDED TO THE PT. All questions and concerns addressed. Patient verbalized understanding. Medication reconciliation form completed and copy given to patient. IV removed with catheter intact, pressure dressing applied. Patient taken to vehicle via wheelchair with all personal belongings, accompanied by staff and family member. No distress noted at time of departure.
== END 2018-10-11 17:52 | disposition home or self-care (01) | DRG 862 ==
LOC: ER 09:14 → TELE 17:48 → TELE-WESTW 18:40 → WEST WING 21:49
PROVIDERS: ADMIT Internal Medicine Cardiovascular Disease; ATTEND Internal Medicine Cardiovascular Disease
DX: T81.41XA Infection following a procedure, superficial incisional surgical site, initial encounter (principal); A41.9 Sepsis, unspecified organism; C18.9 Malignant neoplasm of colon, unspecified; L03.311 Cellulitis of abdominal wall; T81.30XA Disruption of wound, unspecified, initial encounter; D64.9 Anemia, unspecified; E78.5 Hyperlipidemia, unspecified; F17.210 Nicotine dependence, cigarettes, uncomplicated; I10 Essential (primary) hypertension; I25.10 Atherosclerotic heart disease of native coronary artery without angina pectoris; J44.9 Chronic obstructive pulmonary disease, unspecified; Y83.8 Other surgical procedures as the cause of abnormal reaction of the patient, or of later complication, without mention of misadventure at the time of the procedure; Y92.89 Other specified places as the place of occurrence of the external cause; Z90.49 Acquired absence of other specified parts of digestive tract; Z82.49 Family history of ischemic heart disease and other diseases of the circulatory system
CPT/HCPCS: 36415; 71045; 74177; 80053; 81001; 83605; 84484; 85025; 85610; 85730; 87040; 87076; 87081; 87205; 94640; 96365; 96366; 96368; A6257; G0378; J2543; J3490

== ENCOUNTER → 2019-10-14 | Outpatient (CLI) | payer BC | END | disposition home or self-care (01) | LOC: Rad HDHVI 15:52 | PROVIDERS: ATTEND Internal Medicine Cardiovascular Disease | DX: I51.7 Cardiomegaly (principal); J44.9 Chronic obstructive pulmonary disease, unspecified | CPT/HCPCS: 93306 ==

== ENCOUNTER → 2020-01-20 | Outpatient (CLI) | payer BC ==
[~2020-01-20] VITALS: Ht 177.8 cm; Wt 83.0 kg
== END | disposition home or self-care (01) ==
LOC: Rad HDHVI 07:57
PROVIDERS: ATTEND Internal Medicine Cardiovascular Disease
DX: I10 Essential (primary) hypertension (principal); F17.210 Nicotine dependence, cigarettes, uncomplicated; Z82.49 Family history of ischemic heart disease and other diseases of the circulatory system
CPT/HCPCS: 78452; 93017; 96374; A9500

== ENCOUNTER → 2020-12-26 | Outpatient (CLI) | payer BC ==
[2020-12-26 15:59] LABS: Albumin 3.1 g/dL (3.4-5.0); Calcium 10.5 mg/dL (8.5-10.1); Potassium 4.3 mmol/L (3.5-5.1)
[2020-12-26 16:06] LABS: BUN/Creatinine Ratio 26.6; Bilirubin, Total 0.9 mg/dL (0.2-1.0); Total Protein 6.3 g/dL (6.4-8.2)
[2020-12-26 16:10] LABS: Basophils # (auto) 0.1 10 ^3/uL (0-0.2); Basophils % (auto) 1.2 % (0.0-2.0); Eosinophils # (auto) 0.5 10 ^3/uL (0-0.8); Eosinophils % (auto) 8.5 % (0.0-7.0); Hematocrit 44.5 % (41.0-53.0); Hemoglobin 15.3 g/dL (13.5-17.5); Lymphocytes # (auto) 2.1 10 ^3/uL (0.4-5.4); Lymphocytes % (auto) 35.1 % (10.0-50.0); Mean Corpuscular Hemoglobin 39.9 pg (28.0-32.0); Mean Corpuscular Hgb Conc. 34.4 g/dL (32.0-36.0); Monocytes # (auto) 0.9 10 ^3/uL (0-1.3); Monocytes % (auto) 15.2 % (0.0-12.0); Neutrophils # (auto) 2.4 10 ^3/uL (1.6-8.6); Nucleated Red Blood Cells % 0.1 %; Platelet Count (auto) 106 10^3/uL (140-450); Red Blood Cells 3.83 10^6/uL (4.5-5.90); Red Cell Distribution Width 16.4 % (11.8-14.3); White Blood Cell 5.9 10^3/uL (4.4-10.8)
== END | disposition home or self-care (01) ==
LOC: LAB 12:26
PROVIDERS: ATTEND Internal Medicine Cardiovascular Disease
DX: I10 Essential (primary) hypertension (principal); D64.9 Anemia, unspecified
CPT/HCPCS: 36415; 80053; 85025

== ENCOUNTER → 2021-11-18 | Outpatient (CLI) | payer OTHER ==
[~2021-11-18] VITALS: Ht 177.8 cm; Wt 79.4 kg
== END | disposition home or self-care (01) ==
LOC: Rad HDHVI 09:34
PROVIDERS: ATTEND Internal Medicine Cardiovascular Disease
DX: I10 Essential (primary) hypertension (principal); E78.5 Hyperlipidemia, unspecified; F17.210 Nicotine dependence, cigarettes, uncomplicated; Z82.49 Family history of ischemic heart disease and other diseases of the circulatory system
CPT/HCPCS: 78452; 93017; 96374; A9500

== ENCOUNTER 2022-02-15 12:28 | Inpatient (IN) | payer OTHER, MEDICARE ==
[~2022-02-15] VITALS: Ht 177.8 cm; Wt 154.3 kg
[2022-02-15] MEDS ORDERED: SODIUM CHLORIDE 0.9% 1,000 ML IV ONE ×3 (13:30→19:30)
[2022-02-15 14:23] LABS: Basophils # (auto) 0 10 ^3/uL (0-0.2); Eosinophils # (auto) 0.1 10 ^3/uL (0-0.8); Eosinophils % (auto) 0.7 % (0.0-7.0); Lymphocytes # (auto) 1.1 10 ^3/uL (0.4-5.4); Monocytes # (auto) 0.4 10 ^3/uL (0-1.3); Neutrophils # (auto) 6.3 10 ^3/uL (1.6-8.6); White Blood Cell 7.9 10^3/uL (4.4-10.8)
[2022-02-15 14:26] LABS: Basophils % (auto) 0.3 % (0.0-2.0); Hematocrit 42.2 % (41.0-53.0); Hemoglobin 14.9 g/dL (13.5-17.5); Lymphocytes % (auto) 14.5 % (10.0-50.0); Mean Corpuscular Hemoglobin 39.6 pg (28.0-32.0); Mean Corpuscular Hgb Conc. 35.3 g/dL (32.0-36.0); Mean Corpuscular Volume 112.1 fL (80.0-100.0); Monocytes % (auto) 4.7 % (0.0-12.0); Neutrophils % (auto) 79.8 % (37.0-80.0); Red Blood Cells 3.76 10^6/uL (4.5-5.90); Red Cell Distribution Width 17.6 % (11.8-14.3)
[2022-02-15 14:45] LABS: Calcium 10.5 mg/dL (8.5-10.1); Magnesium 2.1 mg/dL (1.6-2.6)
[2022-02-15 14:51] LABS: BUN/Creatinine Ratio 50.5
[2022-02-15 14:58] LABS: Potassium 5.7 mmol/L (3.5-5.1)
[2022-02-15] MEDS ORDERED: ALBUTEROL SULF 2.5 MG/0.5ML(0.5%) NEB SOLN NEB ONE (15:45)
[2022-02-15] MEDS ORDERED: CALCIUM GLUC 1,000mg/50ml-NS 50 ML IV ONE (15:45)
[2022-02-15] MEDS ORDERED: SODIUM ZIRCONIUM CYCL 10 GM PAK PO ONE (15:45)
[2022-02-15] MEDS ORDERED: ALBUTEROL SULF 2.5 MG/0.5ML(0.5%) NEB SOLN ONE (15:59)
[2022-02-15] MEDS ORDERED: SODIUM CHLORIDE 0.9 % NEB SOLN 3ML NEB ONE (15:59)
[2022-02-15] MEDS ORDERED: ONDANSETRON HCL 4 MG/2 ML VIAL IV ONE (20:15)
[2022-02-15 20:26] LABS: Calcium 9.5 mg/dL (8.5-10.1); Potassium 4.8 mmol/L (3.5-5.1)
[2022-02-15] MEDS ORDERED: ONDANSETRON HCL 4 MG/2 ML VIAL IV PRN (22:15)
[2022-02-15] MEDS ORDERED: DOCUSATE SOD 100 MG CAP PO PRN (22:15)
[2022-02-15] MEDS ORDERED: ACETAMINOPHEN 325 MG TAB PO PRN (22:15)
[2022-02-15] MEDS ORDERED: ALBUTEROL SULF 2.5 MG/0.5ML(0.5%) NEB SOLN NEB PRN (22:15)
[2022-02-15] MEDS ORDERED: HYDROcodone-ACET 5/325MG TAB PO PRN (22:15)
[2022-02-15] MEDS ORDERED: IPRATROPIUM BROM 0.5 MG/2.5ML INH SOL NEB PRN (22:15)
[2022-02-15] MEDS ORDERED: NITROGLYCERIN 0.4 MG SL TAB SL PRN (23:30)
[2022-02-15] MEDS ORDERED: ALBUMIN 25% 50 ML IV ONE (23:30)
[2022-02-15] MEDS ORDERED: MORPHINE SULFATE INJ 2 MG/ml SYRG IV PRN (23:30)
[2022-02-16] MEDS: SODIUM CHLORIDE 0.9% 1,000 ML IV SCH ×3 (00:31→23:15)
[2022-02-16 02:39] VITALS: BP 152/92
[2022-02-16 06:15] LABS: Basophils # (auto) 0 10 ^3/uL (0-0.2); Basophils % (auto) 0.2 % (0.0-2.0); Eosinophils # (auto) 0 10 ^3/uL (0-0.8); Eosinophils % (auto) 0.1 % (0.0-7.0); Hemoglobin 13.1 g/dL (13.5-17.5); Lymphocytes # (auto) 0.5 10 ^3/uL (0.4-5.4); Monocytes # (auto) 0.3 10 ^3/uL (0-1.3); White Blood Cell 6.8 10^3/uL (4.4-10.8)
[2022-02-16 06:19] LABS: Hematocrit 38.2 % (41.0-53.0); Lymphocytes % (auto) 7.2 % (10.0-50.0); Mean Corpuscular Hemoglobin 38.4 pg (28.0-32.0); Mean Corpuscular Hgb Conc. 34.2 g/dL (32.0-36.0); Mean Corpuscular Volume 112.1 fL (80.0-100.0); Monocytes % (auto) 4.6 % (0.0-12.0); Neutrophils % (auto) 87.9 % (37.0-80.0); Red Blood Cells 3.41 10^6/uL (4.5-5.90); Red Cell Distribution Width 17.4 % (11.8-14.3)
[2022-02-16 06:32] LABS: Albumin 2.8 g/dL (3.4-5.0); BUN/Creatinine Ratio 45.2; Calcium 9.4 mg/dL (8.5-10.1); Potassium 4.8 mmol/L (3.5-5.1)
[2022-02-16 06:34] LABS: Total Protein 5.7 g/dL (6.4-8.2)
[2022-02-16] MEDS: FAMOTIDINE (10MG/ML) 2ML VL IV SCH ×2 (10:14→23:10)
[2022-02-16] MEDS: ASCORBIC ACID 500 MG TAB PO SCH ×2 (10:17→23:09)
[2022-02-16] MEDS: MULTIPLE VITAMIN TAB PO SCH (10:17)
[2022-02-16] MEDS: ZINC SULFATE 220mg CAP or TAB PO SCH (10:17)
[2022-02-16 22:00] VITALS: BP 142/90
[2022-02-17 05:00] VITALS: BP 122/91
[2022-02-17 08:00] VITALS: BP 136/85
[2022-02-17 09:00] VITALS: BP 136/78
[2022-02-17] MEDS: MULTIPLE VITAMIN TAB PO SCH (09:53)
[2022-02-17] MEDS: ASCORBIC ACID 500 MG TAB PO SCH ×2 (09:53→22:22)
[2022-02-17] MEDS: FAMOTIDINE (10MG/ML) 2ML VL IV SCH ×2 (09:53→22:00)
[2022-02-17] MEDS: ENOXAPARIN SOD 40 MG/0.4 ML SYRINGE SC SCH (09:53)
[2022-02-17] MEDS: ZINC SULFATE 220mg CAP or TAB PO SCH (09:53)
[2022-02-17] MEDS ORDERED: GABA300C10 PO (10:52)
[2022-02-17] MEDS ORDERED: LISI20TA28 PO (10:54)
[2022-02-17 12:34] VITALS: BP 134/75
[2022-02-17 17:21] VITALS: BP 148/88
[2022-02-17] MEDS: metroNIDAZOLE 500 MG TAB PO SCH ×2 (18:21→23:37)
[2022-02-17] MEDS ORDERED: TPN PER PHARMACY 0 ML IV SCH (19:30)
[2022-02-17] MEDS ORDERED: VANCOMYCIN PER PHARMACY 0 MG IV SCH (20:15)
[2022-02-17] MEDS ORDERED: AMINO ACID INFUSION IN D10W 1,000 ML IV NR (21:00)
[2022-02-17] MEDS ORDERED: AMINO ACID INFUSION IN D10W 2,000 ML IV NR (21:30)
[2022-02-17 22:00] VITALS: BP 146/94
[2022-02-17] MEDS: VANCOMYCIN 1GM/250ML 250 ML IV SCH (22:40)
[2022-02-17] MEDS: SODIUM CHLORIDE 0.9% 1,000 ML IV SCH (23:01)
[2022-02-18 05:00] VITALS: BP 152/87
[2022-02-18] MEDS: SODIUM CHLORIDE 0.9% 1,000 ML IV SCH ×2 (05:47→15:30)
[2022-02-18] MEDS: metroNIDAZOLE 500 MG TAB PO SCH ×3 (06:15→17:32)
[2022-02-18 06:21] LABS: Potassium 3.8 mmol/L (3.5-5.1)
[2022-02-18 06:27] LABS: Albumin 2.8 g/dL (3.4-5.0); BUN/Creatinine Ratio 38.3; Calcium 9.1 mg/dL (8.5-10.1); Total Protein 5.4 g/dL (6.4-8.2)
[2022-02-18 06:33] LABS: Magnesium 1.7 mg/dL (1.6-2.6); Phosphorus 1.8 mg/dL (2.5-4.90)
[2022-02-18] MEDS: VANCOMYCIN 1GM/250ML 250 ML IV SCH ×2 (09:05→09:06)
[2022-02-18] MEDS: ASCORBIC ACID 500 MG TAB PO SCH ×2 (09:07→21:34)
[2022-02-18] MEDS: MULTIPLE VITAMIN TAB PO SCH (09:07)
[2022-02-18] MEDS: ZINC SULFATE 220mg CAP or TAB PO SCH (09:07)
[2022-02-18] MEDS: ENOXAPARIN SOD 40 MG/0.4 ML SYRINGE SC SCH (09:08)
[2022-02-18 09:16] VITALS: BP 131/75
[2022-02-18] MEDS ORDERED: VANCOMYCIN 1GM/250ML 250 ML IV SCH (10:00)
[2022-02-18] MEDS ORDERED: SODIUM PHOSPHATES 40 MEQ in D5W 5% 250 ML IV ONE (11:30)
[2022-02-18 14:46] VITALS: BP 133/64
[2022-02-18 17:00] VITALS: BP 136/80
[2022-02-18] MEDS: CHOLESTYRAMINE 4 GM POWDER GT SCH ×2 (17:32→23:30)
[2022-02-18] MEDS: Ensure HIGH Protein Chocolate 8oz Bottle PO SCH (17:33)
[2022-02-18] MEDS: TPN PER PHARMACY IV NR ×8 (21:12)
[2022-02-18 22:00] VITALS: BP 117/85
[2022-02-18 23:55] VITALS: BP 117/85
[2022-02-19] MEDS ORDERED: DEXTROSE (50%) 50ML SYRG IV SCH
[2022-02-19] MEDS: ACCU-CHEK COMFORT CURVE STRIP VI SCH ×4 (00:16→17:38)
[2022-02-19] MEDS: InsuLIN REG 1unit/0.01ml Soln (100units/ml) SC SCH ×4 (00:20→18:24)
[2022-02-19] MEDS: metroNIDAZOLE 500 MG TAB PO SCH ×4 (00:25→17:37)
[2022-02-19] MEDS: SODIUM CHLORIDE 0.9% 1,000 ML IV SCH ×3 (01:30→21:30)
[2022-02-19 05:00] VITALS: BP 125/89
[2022-02-19] MEDS: Ensure HIGH Protein Chocolate 8oz Bottle PO SCH ×2 (08:00→17:58)
[2022-02-19 09:00] VITALS: BP 139/74
[2022-02-19] MEDS: ENOXAPARIN SOD 40 MG/0.4 ML SYRINGE SC SCH (09:14)
[2022-02-19] MEDS: VANCOMYCIN 1GM/250ML 250 ML IV SCH ×2 (09:14→20:38)
[2022-02-19] MEDS: MULTIPLE VITAMIN TAB PO SCH (09:14)
[2022-02-19] MEDS: ASCORBIC ACID 500 MG TAB PO SCH ×2 (09:14→21:36)
[2022-02-19] MEDS: CHOLESTYRAMINE 4 GM POWDER GT SCH ×2 (09:14→23:30)
[2022-02-19] MEDS: ZINC SULFATE 220mg CAP or TAB PO SCH (09:15)
[2022-02-19 09:56] LABS: Albumin 2.6 g/dL (3.4-5.0); Calcium 8.1 mg/dL (8.5-10.1); Potassium 3.3 mmol/L (3.5-5.1)
[2022-02-19 10:00] LABS: BUN/Creatinine Ratio 35.6; Phosphorus 1.8 mg/dL (2.5-4.90); Total Protein 5.4 g/dL (6.4-8.2)
[2022-02-19] MEDS ORDERED: POTASSIUM PHOSPHATE 44 MEQ in D5W 5% 250 ML IV ONE (11:00)
[2022-02-19] MEDS ORDERED: chlorproMAZINE HCL 25 MG TAB PO PRN (11:30)
[2022-02-19 13:00] VITALS: BP 137/77
[2022-02-19 17:00] VITALS: BP 116/68
[2022-02-19] MEDS: TPN PER PHARMACY IV NR ×8 (19:55)
[2022-02-19] MEDS ORDERED: TPN PER PHARMACY IV NR ×10 (20:00)
[2022-02-19] MEDS ORDERED: SODIUM CHLORIDE 0.9% 500 ML IV ONE (21:00)
[2022-02-19 22:00] VITALS: BP 117/69
[2022-02-20] MEDS: ACCU-CHEK COMFORT CURVE STRIP VI SCH ×5 (00:27→23:45)
[2022-02-20 05:00] VITALS: BP 121/62
[2022-02-20 05:53] LABS: Albumin 2.4 g/dL (3.4-5.0); Magnesium 1.7 mg/dL (1.6-2.6); Potassium 3.5 mmol/L (3.5-5.1)
[2022-02-20 06:00] LABS: BUN/Creatinine Ratio 34.4; Bilirubin, Total 0.8 mg/dL (0.2-1.0); Total Protein 4.9 g/dL (6.4-8.2)
[2022-02-20] MEDS: metroNIDAZOLE 500 MG TAB PO SCH ×5 (06:01→23:45)
[2022-02-20] MEDS: VANCOMYCIN 1GM/250ML 250 ML IV SCH ×2 (06:01→16:43)
[2022-02-20] MEDS: InsuLIN REG 1unit/0.01ml Soln (100units/ml) SC SCH ×5 (06:06→23:46)
[2022-02-20] MEDS: SODIUM CHLORIDE 0.9% 1,000 ML IV SCH ×2 (07:30→17:30)
[2022-02-20] MEDS: Ensure HIGH Protein Chocolate 8oz Bottle PO SCH ×2 (08:00→18:00)
[2022-02-20] MEDS: MULTIPLE VITAMIN TAB PO SCH (08:45)
[2022-02-20] MEDS: CHOLESTYRAMINE 4 GM POWDER GT SCH ×2 (08:45→23:27)
[2022-02-20] MEDS ORDERED: POTASSIUM PHOSPHATE 22 MEQ in SODIUM CHL 0.9% 100 ML IV ONE (08:45)
[2022-02-20] MEDS: ENOXAPARIN SOD 40 MG/0.4 ML SYRINGE SC SCH (08:46)
[2022-02-20] MEDS: ASCORBIC ACID 500 MG TAB PO SCH ×2 (08:46→21:26)
[2022-02-20] MEDS: ZINC SULFATE 220mg CAP or TAB PO SCH (08:48)
[2022-02-20 09:00] VITALS: BP 114/74
[2022-02-20 13:00] VITALS: BP 113/70
[2022-02-20 17:20] VITALS: BP 113/67
[2022-02-20] MEDS ORDERED: SORE THROAT SPRAY 6OZ BOTTLE MT PRN (17:30)
[2022-02-20] MEDS ORDERED: MAGIC MOUTHWASH 55 ML SUSP MT PRN (17:30)
[2022-02-20] MEDS ORDERED: TPN PER PHARMACY IV NR ×10 (20:00)
[2022-02-20 22:00] VITALS: BP 109/66
[2022-02-21] MEDS: VANCOMYCIN 1GM/250ML 250 ML IV SCH ×3 (02:54→22:20)
[2022-02-21] MEDS: SODIUM CHLORIDE 0.9% 1,000 ML IV SCH ×3 (03:30→23:30)
[2022-02-21 05:00] VITALS: BP 100/73
[2022-02-21] MEDS: metroNIDAZOLE 500 MG TAB PO SCH ×4 (05:53→23:55)
[2022-02-21] MEDS: ACCU-CHEK COMFORT CURVE STRIP VI SCH ×4 (05:54→23:56)
[2022-02-21] MEDS: InsuLIN REG 1unit/0.01ml Soln (100units/ml) SC SCH ×4 (05:54→23:57)
[2022-02-21 06:31] LABS: Calcium 8.4 mg/dL (8.5-10.1); Potassium 3.3 mmol/L (3.5-5.1)
[2022-02-21 06:37] LABS: Albumin 2.5 g/dL (3.4-5.0); BUN/Creatinine Ratio 35.5; Bilirubin, Total 0.8 mg/dL (0.2-1.0); Magnesium 2.2 mg/dL (1.6-2.6); Phosphorus 2.6 mg/dL (2.5-4.90); Total Protein 5.4 g/dL (6.4-8.2)
[2022-02-21 09:00] VITALS: BP 104/60
[2022-02-21] MEDS: Ensure HIGH Protein Chocolate 8oz Bottle PO SCH ×2 (10:37→18:19)
[2022-02-21] MEDS: CHOLESTYRAMINE 4 GM POWDER GT SCH ×3 (11:30→23:30)
[2022-02-21] MEDS: ZINC SULFATE 220mg CAP or TAB PO SCH (11:30)
[2022-02-21] MEDS: ENOXAPARIN SOD 40 MG/0.4 ML SYRINGE SC SCH (11:30)
[2022-02-21] MEDS: ASCORBIC ACID 500 MG TAB PO SCH ×2 (11:30→22:00)
[2022-02-21] MEDS: MULTIPLE VITAMIN TAB PO SCH (11:30)
[2022-02-21 13:00] VITALS: BP 106/73
[2022-02-21] MEDS ORDERED: POTASSIUM PHOSPHATE 22 MEQ in SODIUM CHL 0.9% 100 ML IV ONE (13:00)
[2022-02-21] MEDS ORDERED: POTASSIUM CHL 20MEQ/100ML 100 ML IV SCH (15:45)
[2022-02-21] MEDS ORDERED: IOHEXOL 300 MG/ML 100ML BOTTLE IJ ONE (16:12)
[2022-02-21 17:00] VITALS: BP 113/72
[2022-02-21] MEDS ORDERED: FAT EMULSION IV NR ×11 (20:00)
[2022-02-21] MEDS ORDERED: POTASSIUM ACETATE IV NR ×11 (20:00)
[2022-02-21] MEDS ORDERED: SODIUM ACETATE IV NR ×11 (20:00)
[2022-02-21] MEDS ORDERED: [UNRECOGNIZED DRUG - OTHER] IV NR ×11 (20:00)
[2022-02-21 21:54] VITALS: BP 120/81
[2022-02-22 02:38] VITALS: BP 114/82
[2022-02-22 05:04] VITALS: BP 101/66
[2022-02-22 05:50] LABS: Potassium 3.4 mmol/L (3.5-5.1)
[2022-02-22] MEDS: ACCU-CHEK COMFORT CURVE STRIP VI SCH ×3 (05:53→17:40)
[2022-02-22] MEDS: metroNIDAZOLE 500 MG TAB PO SCH ×3 (05:53→17:39)
[2022-02-22 05:58] LABS: Albumin 2.1 g/dL (3.4-5.0); BUN/Creatinine Ratio 37.1; Bilirubin, Total 0.4 mg/dL (0.2-1.0); Magnesium 2.3 mg/dL (1.6-2.6); Phosphorus 2.7 mg/dL (2.5-4.90); Total Protein 4.8 g/dL (6.4-8.2)
[2022-02-22] MEDS: InsuLIN REG 1unit/0.01ml Soln (100units/ml) SC SCH ×3 (06:03→17:39)
[2022-02-22] MEDS: SODIUM CHLORIDE 0.9% 1,000 ML IV SCH ×2 (06:11→19:30)
[2022-02-22] MEDS: VANCOMYCIN 1GM/250ML 250 ML IV SCH ×2 (08:30→17:40)
[2022-02-22] MEDS: Ensure HIGH Protein Chocolate 8oz Bottle PO SCH ×2 (08:30→17:40)
[2022-02-22 09:00] VITALS: BP 138/56
[2022-02-22] MEDS: MULTIPLE VITAMIN TAB PO SCH (10:13)
[2022-02-22] MEDS: ZINC SULFATE 220mg CAP or TAB PO SCH (10:13)
[2022-02-22] MEDS: ASCORBIC ACID 500 MG TAB PO SCH ×2 (10:13→22:24)
[2022-02-22] MEDS: ENOXAPARIN SOD 40 MG/0.4 ML SYRINGE SC SCH (10:14)
[2022-02-22] MEDS: CHOLESTYRAMINE 4 GM POWDER GT SCH ×2 (12:15→23:03)
[2022-02-22 13:00] VITALS: BP 122/65
[2022-02-22 17:00] VITALS: BP 108/68
[2022-02-22] MEDS ORDERED: TPN PER PHARMACY IV NR ×11 (20:00)
[2022-02-22 22:00] VITALS: BP 98/63
[2022-02-22] MEDS ORDERED: TEMAZEPAM 15 MG CAP PO PRN (23:00)
[2022-02-23] MEDS: metroNIDAZOLE 500 MG TAB PO SCH ×5 (01:31→23:08)
[2022-02-23] MEDS: InsuLIN REG 1unit/0.01ml Soln (100units/ml) SC SCH ×5 (01:42→23:16)
[2022-02-23 05:00] VITALS: BP 121/69
[2022-02-23] MEDS: SODIUM CHLORIDE 0.9% 1,000 ML IV SCH ×2 (05:30→15:30)
[2022-02-23] MEDS: ACCU-CHEK COMFORT CURVE STRIP VI SCH ×5 (05:44→23:08)
[2022-02-23 07:14] LABS: Albumin 1.9 g/dL (3.4-5.0); Calcium 8.1 mg/dL (8.5-10.1); Magnesium 2.1 mg/dL (1.6-2.6); Potassium 3.3 mmol/L (3.5-5.1)
[2022-02-23 07:18] LABS: BUN/Creatinine Ratio 39.8; Bilirubin, Total 0.3 mg/dL (0.2-1.0); Phosphorus 2.8 mg/dL (2.5-4.90); Total Protein 4.5 g/dL (6.4-8.2)
[2022-02-23] MEDS: Ensure HIGH Protein Chocolate 8oz Bottle PO SCH ×2 (08:00→18:00)
[2022-02-23 09:00] VITALS: BP 109/65
[2022-02-23] MEDS: CHOLESTYRAMINE 4 GM POWDER GT SCH ×2 (10:09→23:18)
[2022-02-23] MEDS: MULTIPLE VITAMIN TAB PO SCH (10:10)
[2022-02-23] MEDS: ENOXAPARIN SOD 40 MG/0.4 ML SYRINGE SC SCH (10:10)
[2022-02-23] MEDS: ZINC SULFATE 220mg CAP or TAB PO SCH (10:11)
[2022-02-23] MEDS: ASCORBIC ACID 500 MG TAB PO SCH ×2 (10:11→23:07)
[2022-02-23] MEDS ORDERED: POTASSIUM PHOSPHATE 22 MEQ in SODIUM CHL 0.9% 100 ML IV ONE (12:30)
[2022-02-23 13:00] VITALS: BP 116/71
[2022-02-23 17:00] VITALS: BP 104/65
[2022-02-23] MEDS ORDERED: TPN PER PHARMACY IV NR ×10 (20:00)
[2022-02-23] MEDS: VANCOMYCIN 1GM/250ML 250 ML IV SCH (20:35)
[2022-02-23 22:00] VITALS: BP 118/67
[2022-02-24 05:00] VITALS: BP 102/61
[2022-02-24 05:51] LABS: Albumin 1.8 g/dL (3.4-5.0); Calcium 7.9 mg/dL (8.5-10.1); Magnesium 1.9 mg/dL (1.6-2.6); Potassium 3.5 mmol/L (3.5-5.1)
[2022-02-24 05:55] LABS: BUN/Creatinine Ratio 37.1; Bilirubin, Total 0.4 mg/dL (0.2-1.0); Phosphorus 3.2 mg/dL (2.5-4.90); Total Protein 4.4 g/dL (6.4-8.2)
[2022-02-24] MEDS: ACCU-CHEK COMFORT CURVE STRIP VI SCH ×3 (06:21→18:43)
[2022-02-24] MEDS: metroNIDAZOLE 500 MG TAB PO SCH ×3 (06:22→18:44)
[2022-02-24] MEDS: InsuLIN REG 1unit/0.01ml Soln (100units/ml) SC SCH ×3 (06:26→18:44)
[2022-02-24] MEDS: ZINC SULFATE 220mg CAP or TAB PO SCH (08:58)
[2022-02-24] MEDS: MULTIPLE VITAMIN TAB PO SCH (08:58)
[2022-02-24] MEDS: ASCORBIC ACID 500 MG TAB PO SCH ×2 (08:58→21:56)
[2022-02-24] MEDS: ENOXAPARIN SOD 40 MG/0.4 ML SYRINGE SC SCH (08:59)
[2022-02-24 09:00] VITALS: BP 123/71
[2022-02-24] MEDS: SODIUM CHLORIDE 0.9% 1,000 ML IV SCH ×3 (09:00→21:56)
[2022-02-24] MEDS: Ensure HIGH Protein Chocolate 8oz Bottle PO SCH ×2 (09:00→18:43)
[2022-02-24] MEDS ORDERED: POTASSIUM CHL 20MEQ/100ML 100 ML IV ONE (09:30)
[2022-02-24] MEDS: CHOLESTYRAMINE 4 GM POWDER GT SCH (11:30)
[2022-02-24 13:00] VITALS: BP 101/68
[2022-02-24] MEDS: VANCOMYCIN 1GM/250ML 250 ML IV SCH (14:15)
[2022-02-24 17:00] VITALS: BP 102/59
[2022-02-24] MEDS ORDERED: POTASSIUM EFFERVESENT TAB 25 MEQ PO ONE (18:00)
[2022-02-24] MEDS ORDERED: TPN PER PHARMACY IV NR ×11 (20:00)
[2022-02-24 22:00] VITALS: BP 116/71
[2022-02-25] MEDS: ACCU-CHEK COMFORT CURVE STRIP VI SCH ×4 (00:37→17:30)
[2022-02-25] MEDS: metroNIDAZOLE 500 MG TAB PO SCH ×4 (00:37→17:45)
[2022-02-25] MEDS: InsuLIN REG 1unit/0.01ml Soln (100units/ml) SC SCH ×4 (00:49→17:50)
[2022-02-25 04:30] VITALS: BP 102/73
[2022-02-25 04:51] VITALS: BP 90/70
[2022-02-25 06:48] LABS: Hematocrit 37.1 % (41.0-53.0); Hemoglobin 12.8 g/dL (13.5-17.5)
[2022-02-25 06:50] LABS: Mean Corpuscular Hemoglobin 38.5 pg (28.0-32.0); Mean Corpuscular Hgb Conc. 34.5 g/dL (32.0-36.0); Mean Corpuscular Volume 111.6 fL (80.0-100.0); Red Blood Cells 3.32 10^6/uL (4.5-5.90); White Blood Cell 9.3 10^3/uL (4.4-10.8)
[2022-02-25 07:04] LABS: Albumin 1.7 g/dL (3.4-5.0); Calcium 7.7 mg/dL (8.5-10.1); Magnesium 1.9 mg/dL (1.6-2.6); Potassium 3.6 mmol/L (3.5-5.1)
[2022-02-25 07:08] LABS: BUN/Creatinine Ratio 35.1; Bilirubin, Total 0.4 mg/dL (0.2-1.0); Phosphorus 2.2 mg/dL (2.5-4.90); Total Protein 4.2 g/dL (6.4-8.2)
[2022-02-25 07:23] LABS: Basophils % (manual) 0 (0.0-2.0); Blast Cells 0; Myelocytes % 0; Promyelocytes % 0; Reactive Lymphocytes 0
[2022-02-25 07:43] LABS: Band Neutrophils % (manual) 53; Lymphocytes % (manual) 18 (10.0-50.0)
[2022-02-25 07:44] LABS: Eosinophils % (manual) 1 (0-7); Metamyelocytes % 6; Monocytes % (manual) 16 (0-12)
[2022-02-25] MEDS: Ensure HIGH Protein Chocolate 8oz Bottle PO SCH ×2 (08:00→18:00)
[2022-02-25] MEDS: SODIUM CHLORIDE 0.9% 1,000 ML IV SCH ×2 (09:13→17:30)
[2022-02-25] MEDS: ENOXAPARIN SOD 40 MG/0.4 ML SYRINGE SC SCH (09:14)
[2022-02-25] MEDS: ZINC SULFATE 220mg CAP or TAB PO SCH (09:14)
[2022-02-25] MEDS: MULTIPLE VITAMIN TAB PO SCH (09:14)
[2022-02-25] MEDS: ASCORBIC ACID 500 MG TAB PO SCH (09:14)
[2022-02-25] MEDS ORDERED: SODIUM PHOSP 40 MEQ in D5W 5% 250 ML IV ONE (09:15)
[2022-02-25 17:00] VITALS: BP 110/63
[2022-02-25 18:06] VITALS: BP 110/63
[2022-02-25] MEDS ORDERED: TPN PER PHARMACY IV NR ×11 (20:00)
== END 2022-02-25 19:01 | disposition home or self-care (01) | DRG 871 ==
LOC: ER 12:28 → TELE 23:16 → TELE-WESTW 02-16 20:20
PROVIDERS: ADMIT Nurse Practitioner Family; ATTEND Internal Medicine Cardiovascular Disease
DX: A41.9 Sepsis, unspecified organism (principal); E43 Unspecified severe protein-calorie malnutrition; C34.90 Malignant neoplasm of unspecified part of unspecified bronchus or lung; A04.72 Enterocolitis due to Clostridium difficile, not specified as recurrent; C78.00 Secondary malignant neoplasm of unspecified lung; C78.7 Secondary malignant neoplasm of liver and intrahepatic bile duct; R64 Cachexia; Z68.42 Body mass index [BMI] 45.0-49.9, adult; E86.0 Dehydration; I10 Essential (primary) hypertension; J44.9 Chronic obstructive pulmonary disease, unspecified; Z20.822 Contact with and (suspected) exposure to COVID-19; I48.91 Unspecified atrial fibrillation; D64.9 Anemia, unspecified; I25.10 Atherosclerotic heart disease of native coronary artery without angina pectoris; F17.210 Nicotine dependence, cigarettes, uncomplicated; E87.5 Hyperkalemia; Z85.048 Personal history of other malignant neoplasm of rectum, rectosigmoid junction, and anus; Z79.899 Other long term (current) drug therapy; Z82.49 Family history of ischemic heart disease and other diseases of the circulatory system
CPT/HCPCS: 36415; 71260; 80048; 80053; 80202; 82962; 83735; 84100; 84478; 84484; 85007; 85025; 85027; 87040; 87045; 87427; 87493; 93005; 94640; 96361; 96365; 96375; G0378; J1642; J1815; J2405; J3480; J3490; J7060; Q0161

== ENCOUNTER 2022-02-28 10:19 | Inpatient (IN) | payer OTHER, MEDICARE ==
[~2022-02-28] VITALS: Ht 177.8 cm; Wt 73.7 kg
[2022-02-28] VITALS (10 sets, daily range): BP systolic 96–112; BP diastolic 50–61
[~2022-02-28 10:19] MED LIST changes: +GABA300C10 PO; -LISI2.5T47 PO; +LISI20TA28 PO
[2022-02-28] MEDS ORDERED: SUCCINYLCHOLINE CHLORIDE 20 MG/ML 10ML VIAL IV ONE (10:22)
[2022-02-28] MEDS ORDERED: NOREPINEPHRINE 8 MG/250ML KIT 250 ML IV ONE (10:22)
[2022-02-28] MEDS ORDERED: ETOMIDATE (2MG/ML) 20ML VIAL IV ONE (10:22)
[2022-02-28] MEDS ORDERED: SODIUM CHLORIDE 0.9% 1,000 ML IVB ONE (10:30)
[2022-02-28] MEDS ORDERED: NOREPINEPHRINE 8 MG/250ML KIT 250 ML IV SCH (10:30)
[2022-02-28] MEDS: NOREPINEPHRINE 8 MG/250ML KIT 250 ML IV SCH (10:40)
[2022-02-28 12:06] LABS: Hematocrit 35.4 % (41.0-53.0); Hemoglobin 11.9 g/dL (13.5-17.5); Mean Corpuscular Hemoglobin 38.4 pg (28.0-32.0); Mean Corpuscular Hgb Conc. 33.5 g/dL (32.0-36.0); Mean Corpuscular Volume 114.6 fL (80.0-100.0); Red Blood Cells 3.09 10^6/uL (4.5-5.90); White Blood Cell 13.5 10^3/uL (4.4-10.8)
[2022-02-28 12:07] LABS: Basophils % (manual) 0 (0.0-2.0); Blast Cells 0; Eosinophils % (manual) 0 (0-7); Myelocytes % 0; Promyelocytes % 0; Reactive Lymphocytes 0; Red Cell Distribution Width 20.4 % (11.8-14.3)
[2022-02-28 12:20] LABS: Urine Bacteria FEW /hpf (None Seen); Urine Blood Negative /uL (Negative); Urine Hyaline Cast FEW /lpf (0 - 2); Urine Mucus FEW (None Seen); Urine Specific Gravity 1.021 (1.001-1.035); Urine WBC 2 /hpf (0 - 3)
[2022-02-28 12:24] LABS: Band Neutrophils % (manual) 6; Lymphocytes % (manual) 3 (10.0-50.0); Metamyelocytes % 1; Monocytes % (manual) 11 (0-12)
[2022-02-28 12:26] LABS: Albumin 1.7 g/dL (3.4-5.0); Calcium 7.9 mg/dL (8.5-10.1); Magnesium 2.1 mg/dL (1.6-2.6)
[2022-02-28 12:28] LABS: Lactic Acid w/Reflex 2.4 mmol/L (0.4-2.0)
[2022-02-28 12:29] LABS: Bilirubin, Total 0.8 mg/dL (0.2-1.0); Total Protein 4.1 g/dL (6.4-8.2)
[2022-02-28] MEDS ORDERED: SODIUM CHLORIDE 0.9% 1,000 ML IV ONE ×2 (12:45→13:00)
[2022-02-28] MEDS ORDERED: metroNIDAZOLE 500MG/100ML 100 ML IV ONE (13:00)
[2022-02-28] MEDS ORDERED: cefTRIAXone 1GM/50ML D5W 50 ML IV ONE (13:00)
[2022-02-28] MEDS ORDERED: POTASSIUM CHL 20MEQ/100ML 100 ML IV ONE (13:00)
[2022-02-28] MEDS ORDERED: POTASSIUM CHL 20 Meq TABLET PO ONE (15:45)
[2022-02-28] MEDS ORDERED: MORPHINE SULFATE INJ 2 MG/ml SYRG IV PRN (15:45)
[2022-02-28] MEDS ORDERED: NITROGLYCERIN 0.4 MG SL TAB SL PRN (15:45)
[2022-02-28] MEDS: PHENYLEPHRINE IV 250 ML IV SCH ×2 (16:15→21:02)
[2022-02-28] MEDS ORDERED: MORPHINE SULFATE 4 MG/ML SYR/VIAL IV PRN (16:30)
[2022-02-28] MEDS ORDERED: LORazepam 2MG/ML-1ML VIAL IV PRN (16:30)
[2022-02-28] MEDS ORDERED: ACETAMINOPHEN 325 MG TAB PO PRN ×2 (16:30→18:45)
[2022-02-28] MEDS ORDERED: VANCOMYCIN PER PHARMACY 1,000 MG IV SCH (16:30)
[2022-02-28] MEDS ORDERED: PIPERACILLIN-TAZOB 3.375GM 100 ML IV SCH (17:00)
[2022-02-28] MEDS ORDERED: VANCOMYCIN 1GM/250ML 250 ML IV ONE (17:00)
[2022-02-28] MEDS ORDERED: chlorproMAZINE HCL 25 MG TAB PO ONE (17:30)
[2022-02-28] MEDS ORDERED: chlorproMAZINE INECTION 25 MG in SODIUM CHL 0.9% 50 ML IV SCH (18:00)
[2022-02-28] MEDS ORDERED: ENOXAPARIN SOD 100 MG/1 ML SYRINGE SC ONE (18:30)
[2022-02-28] MEDS ORDERED: PANTOPRAZOLE 40 MG/10 ML VIAL INJ IV ONE (18:45)
[2022-02-28] MEDS ORDERED: LORazepam 0.5 MG TAB PO PRN (18:45)
[2022-02-28] MEDS ORDERED: HYDROcodone-ACET 5/325MG TAB PO PRN (18:45)
[2022-02-28] MEDS ORDERED: hydrALAZINE HCL 20 MG/ML VL IV PRN (18:45)
[2022-02-28] MEDS ORDERED: ONDANSETRON HCL 4 MG/2 ML VIAL IV PRN (18:45)
[2022-02-28] MEDS: SODIUM CHLORIDE 0.9% 1,000 ML IV SCH (19:00)
[2022-02-28 19:34] LABS: Magnesium 1.7 mg/dL (1.6-2.6); Phosphorus 3.5 mg/dL (2.5-4.90)
[2022-02-28 19:45] LABS: INR 1.27 (0.9-1.15); Partial Thromboplastin Time 26.7 sec (23.6-33.0)
[2022-02-28] MEDS: GABAPENTIN 100 MG CAP PO SCH (21:38)
[2022-02-28] MEDS: metroNIDAZOLE 500MG/100ML 100 ML IV SCH (21:38)
[2022-02-28] MEDS: VANCOMYCIN HCL 125MG/5ML ORAL SOL PO SCH (22:00)
[2022-02-28] MEDS ORDERED: IPRATROPIUM BROM 0.5 MG/2.5ML INH SOL NEB SCH (22:00)
[2022-03-01] VITALS (88 sets, daily range): BP systolic 89–129; BP diastolic 42–71
[2022-03-01] MEDS: NOREPINEPHRINE 8 MG/250ML KIT 250 ML IV SCH ×3 (00:40→09:16)
[2022-03-01 04:38] LABS: Hematocrit 33.9 % (41.0-53.0); Hemoglobin 11.5 g/dL (13.5-17.5); Mean Corpuscular Hemoglobin 38.5 pg (28.0-32.0); Mean Corpuscular Volume 113.1 fL (80.0-100.0); White Blood Cell 14.8 10^3/uL (4.4-10.8)
[2022-03-01] MEDS: PHENYLEPHRINE IV 250 ML IV SCH (04:41)
[2022-03-01] MEDS: SODIUM CHLORIDE 0.9% 1,000 ML IV SCH ×3 (04:43→21:39)
[2022-03-01 04:51] LABS: Red Cell Distribution Width 20.1 % (11.8-14.3)
[2022-03-01 04:52] LABS: Basophils % (manual) 0 (0.0-2.0); Blast Cells 0; Metamyelocytes % 0; Myelocytes % 0; Promyelocytes % 0; Reactive Lymphocytes 0
[2022-03-01 04:55] LABS: INR 1.27 (0.9-1.15); Partial Thromboplastin Time 30.5 sec (23.6-33.0)
[2022-03-01 04:56] LABS: Barbiturate Scree,Urine NEGATIVE (NEGATIVE); Protein, Urine 50.6 mg/dL (0.0-11.9)
[2022-03-01 04:57] LABS: Magnesium 1.9 mg/dL (1.6-2.6); Potassium 3.8 mmol/L (3.5-5.1)
[2022-03-01 04:58] LABS: Alcohol, Urine < 3.0 mg/dL (0-10); Amphetamine Screen, Urine NEGATIVE (NEGATIVE); Benzodiazephine Screen, Urine NEGATIVE (NEGATIVE); Cannabinoid Screen, Urine NEGATIVE (NEGATIVE); Cocaine Screen, Urine NEGATIVE (NEGATIVE); Opiate Scree,Urine POSITIVE (NEGATIVE); Phencyclidine Screen, Urine NEGATIVE (NEGATIVE)
[2022-03-01 05:03] LABS: Urine Bacteria FEW /hpf (None Seen); Urine Blood Negative /uL (Negative); Urine Mucus FEW (None Seen); Urine Specific Gravity 1.017 (1.001-1.035); Urine WBC 79 /hpf (0 - 3)
[2022-03-01 05:04] LABS: Albumin 1.7 g/dL (3.4-5.0); BUN/Creatinine Ratio 36.7; Bilirubin, Total 0.8 mg/dL (0.2-1.0); CRP High Sensitivity 0.8 mg/dL (< 0.3); Calcium 7.6 mg/dL (8.5-10.1); Phosphorus 2.4 mg/dL (2.5-4.90); Total Protein 4.5 g/dL (6.4-8.2); Uric Acid 6.7 mg/dL (3.5-7.2)
[2022-03-01 05:05] LABS: Thyroid Stimulating Hormone 5.35 uIU/mL (0.358-3.74)
[2022-03-01 05:34] LABS: Band Neutrophils % (manual) 2; Eosinophils % (manual) 1 (0-7); Lymphocytes % (manual) 9 (10.0-50.0); Monocytes % (manual) 8 (0-12)
[2022-03-01 05:36] LABS: Ferritin 635.2 ng/mL (10-322)
[2022-03-01] MEDS: metroNIDAZOLE 500MG/100ML 100 ML IV SCH (05:55)
[2022-03-01] MEDS: IPRATROPIUM BROM 0.5 MG/2.5ML INH SOL NEB SCH ×5 (06:45→22:05)
[2022-03-01] MEDS: VANCOMYCIN HCL 125MG/5ML ORAL SOL PO SCH (06:45)
[2022-03-01] MEDS ORDERED: GASTROGRAFIN 120 ML SOL ONE (09:44)
[2022-03-01] MEDS: chlorproMAZINE HCL 25 MG TAB PO SCH (10:00)
[2022-03-01] MEDS ORDERED: ENOXAPARIN SOD 100 MG/1 ML SYRINGE SC SCH (10:00)
[2022-03-01] MEDS: GABAPENTIN 100 MG CAP PO SCH ×2 (10:00→22:34)
[2022-03-01] MEDS ORDERED: PANTOPRAZOLE 40 MG/10 ML VIAL INJ IV SCH (10:00)
[2022-03-01] MEDS ORDERED: VANCOMYCIN HCL 125MG/5ML ORAL SOL PO SCH (14:00)
[2022-03-01] MEDS: metroNIDAZOLE 500 MG TAB PO SCH ×2 (14:17→22:34)
[2022-03-01] MEDS: VANCOMYCIN HCL 500MG/5ML ORAL SOL PO SCH (22:34)
[2022-03-02] VITALS (66 sets, daily range): BP systolic 84–144; BP diastolic 39–80
[2022-03-02 04:20] LABS: Hematocrit 31.1 % (41.0-53.0); Red Blood Cells 2.75 10^6/uL (4.5-5.90)
[2022-03-02 04:23] LABS: Hemoglobin 10.9 g/dL (13.5-17.5); Mean Corpuscular Hemoglobin 39.6 pg (28.0-32.0); Mean Corpuscular Hgb Conc. 34.9 g/dL (32.0-36.0); Mean Corpuscular Volume 113.3 fL (80.0-100.0); White Blood Cell 13.5 10^3/uL (4.4-10.8)
[2022-03-02 04:26] LABS: Red Cell Distribution Width 20.4 % (11.8-14.3)
[2022-03-02 04:27] LABS: Basophils % (manual) 0 (0.0-2.0); Blast Cells 0; Eosinophils % (manual) 0 (0-7); Metamyelocytes % 0; Myelocytes % 0; Promyelocytes % 0; Reactive Lymphocytes 0
[2022-03-02 04:32] LABS: Albumin 1.6 g/dL (3.4-5.0)
[2022-03-02 04:37] LABS: Calcium 7.9 mg/dL (8.5-10.1)
[2022-03-02 04:40] LABS: Bilirubin, Total 0.6 mg/dL (0.2-1.0); Total Protein 4.1 g/dL (6.4-8.2)
[2022-03-02 05:10] LABS: Band Neutrophils % (manual) 3; Lymphocytes % (manual) 13 (10.0-50.0); Monocytes % (manual) 6 (0-12)
[2022-03-02] MEDS: VANCOMYCIN HCL 500MG/5ML ORAL SOL PO SCH ×3 (06:00→21:13)
[2022-03-02] MEDS: metroNIDAZOLE 500 MG TAB PO SCH ×3 (06:00→21:12)
[2022-03-02] MEDS: IPRATROPIUM BROM 0.5 MG/2.5ML INH SOL NEB SCH ×5 (06:36→22:00)
[2022-03-02] MEDS ORDERED: SODIUM CHLORIDE 0.9% 1,000 ML IV SCH (08:30)
[2022-03-02] MEDS ORDERED: SODIUM CHLORIDE 0.9% 500 ML IV ONE (08:30)
[2022-03-02] MEDS: PHENYLEPHRINE IV 250 ML IV SCH ×3 (09:22→18:15)
[2022-03-02] MEDS: GABAPENTIN 100 MG CAP PO SCH ×2 (09:40→21:13)
[2022-03-02] MEDS: POTASSIUM CHL 20MEQ/100ML 100 ML IV SCH ×3 (09:41→14:17)
[2022-03-02] MEDS: FLORASTOR (S. BOULARDII) 250 MG CAP PO SCH (09:41)
[2022-03-02] MEDS: cefTRIAXone 1GM/50ML D5W 50 ML IV SCH (09:45)
[2022-03-02] MEDS: D5W/SOD CHL 0.9%/KCL 40MEQ 1,000 ML IV SCH ×2 (09:46→18:30)
[2022-03-02] MEDS ORDERED: FAMOTIDINE INJECTION 40 MG in SODIUM CHL 0.9% 100 ML IV SCH (10:00)
[2022-03-02] MEDS: chlorproMAZINE HCL 25 MG TAB PO SCH (10:00)
[2022-03-02 10:27] LABS: Hemoglobin 10.7 g/dL (13.5-17.5)
[2022-03-02 10:29] LABS: Hematocrit 30.8 % (41.0-53.0)
[2022-03-02] MEDS: NOREPINEPHRINE 8 MG/250ML KIT 250 ML IV SCH (10:30)
[2022-03-02] MEDS: FAMOTIDINE (10MG/ML) 2ML VL IV SCH (13:00)
[2022-03-02 20:27] LABS: Hemoglobin 10.3 g/dL (13.5-17.5)
[2022-03-02 20:29] LABS: Hematocrit 30.2 % (41.0-53.0)
[2022-03-03] VITALS (25 sets, daily range): BP systolic 100–136; BP diastolic 52–76
[2022-03-03] MEDS: PHENYLEPHRINE IV 250 ML IV SCH ×2 (02:35→10:55)
[2022-03-03 03:46] LABS: Hemoglobin 10.9 g/dL (13.5-17.5)
[2022-03-03 03:47] LABS: Hematocrit 31.4 % (41.0-53.0); Mean Corpuscular Hemoglobin 39.6 pg (28.0-32.0); Mean Corpuscular Hgb Conc. 34.8 g/dL (32.0-36.0); Red Blood Cells 2.75 10^6/uL (4.5-5.90); White Blood Cell 14.9 10^3/uL (4.4-10.8)
[2022-03-03 03:52] LABS: Red Cell Distribution Width 20.7 % (11.8-14.3)
[2022-03-03 03:53] LABS: Basophils % (manual) 0 (0.0-2.0); Blast Cells 0; Eosinophils % (manual) 0 (0-7); Promyelocytes % 0; Reactive Lymphocytes 0
[2022-03-03 04:01] LABS: Albumin 1.7 g/dL (3.4-5.0); Calcium 7.5 mg/dL (8.5-10.1); Potassium 3.3 mmol/L (3.5-5.1)
[2022-03-03 04:05] LABS: BUN/Creatinine Ratio 27.9; Bilirubin, Total 0.6 mg/dL (0.2-1.0); Total Protein 4.7 g/dL (6.4-8.2)
[2022-03-03 04:27] LABS: Band Neutrophils % (manual) 6; Lymphocytes % (manual) 11 (10.0-50.0); Metamyelocytes % 5; Monocytes % (manual) 7 (0-12); Myelocytes % 4
[2022-03-03] MEDS: D5W/SOD CHL 0.9%/KCL 40MEQ 1,000 ML IV SCH ×2 (04:30→15:33)
[2022-03-03] MEDS: VANCOMYCIN HCL 500MG/5ML ORAL SOL PO SCH (05:44)
[2022-03-03] MEDS: metroNIDAZOLE 500 MG TAB PO SCH ×3 (05:44→21:36)
[2022-03-03] MEDS: IPRATROPIUM BROM 0.5 MG/2.5ML INH SOL NEB SCH ×5 (06:33→22:00)
[2022-03-03 08:32] LABS: Folate (Folic Acid) 17.92 ng/mL (5.38-24)
[2022-03-03] MEDS: chlorproMAZINE HCL 25 MG TAB PO SCH (09:12)
[2022-03-03] MEDS: cefTRIAXone 1GM/50ML D5W 50 ML IV SCH (09:30)
[2022-03-03] MEDS: FAMOTIDINE (10MG/ML) 2ML VL IV SCH (09:31)
[2022-03-03] MEDS: GABAPENTIN 100 MG CAP PO SCH ×2 (09:31→21:36)
[2022-03-03] MEDS: FLORASTOR (S. BOULARDII) 250 MG CAP PO SCH (09:31)
[2022-03-03] MEDS: NOREPINEPHRINE 8 MG/250ML KIT 250 ML IV SCH (10:30)
[2022-03-03] MEDS ORDERED: POTASSIUM CHL 20 Meq TABLET PO ONE (14:15)
[2022-03-04 00:59] VITALS: BP 125/76
[2022-03-04] MEDS: D5W/SOD CHL 0.9%/KCL 40MEQ 1,000 ML IV SCH ×2 (04:15→16:55)
[2022-03-04 05:00] VITALS: BP 125/71
[2022-03-04] MEDS: metroNIDAZOLE 500 MG TAB PO SCH ×2 (05:41→15:09)
[2022-03-04 05:47] LABS: Hematocrit 31.2 % (41.0-53.0); Hemoglobin 10.7 g/dL (13.5-17.5)
[2022-03-04 05:52] LABS: Mean Corpuscular Hemoglobin 38.9 pg (28.0-32.0); Mean Corpuscular Hgb Conc. 34.4 g/dL (32.0-36.0); Mean Corpuscular Volume 113.1 fL (80.0-100.0); Red Blood Cells 2.75 10^6/uL (4.5-5.90); White Blood Cell 14.6 10^3/uL (4.4-10.8)
[2022-03-04 05:56] LABS: BUN/Creatinine Ratio 19.3; Calcium 7.8 mg/dL (8.5-10.1); Potassium 3.7 mmol/L (3.5-5.1)
[2022-03-04] MEDS ORDERED: IPRATROPIUM BROM 0.5 MG/2.5ML INH SOL NEB PRN (06:00)
[2022-03-04 06:02] LABS: Basophils % (manual) 0 (0.0-2.0); Blast Cells 0; Myelocytes % 0; Promyelocytes % 0; Reactive Lymphocytes 0; Red Cell Distribution Width 20.7 % (11.8-14.3)
[2022-03-04 07:57] LABS: Band Neutrophils % (manual) 5; Eosinophils % (manual) 2 (0-7); Lymphocytes % (manual) 8 (10.0-50.0); Metamyelocytes % 3; Monocytes % (manual) 3 (0-12)
[2022-03-04] MEDS: cefTRIAXone 1GM/50ML D5W 50 ML IV SCH (08:55)
[2022-03-04] MEDS: GABAPENTIN 100 MG CAP PO SCH (08:55)
[2022-03-04] MEDS: FLORASTOR (S. BOULARDII) 250 MG CAP PO SCH (08:56)
[2022-03-04] MEDS: chlorproMAZINE HCL 25 MG TAB PO SCH (08:56)
[2022-03-04 09:00] VITALS: BP 126/69
[2022-03-04 13:00] VITALS: BP 120/66
[2022-03-04] MEDS ORDERED: CEFU500T43 PO (14:37)
[2022-03-04] MEDS ORDERED: MET500T PO (14:37)
[2022-03-04 16:27] VITALS: BP 139/75
== END 2022-03-04 17:51 | disposition home or self-care (01) | DRG 871 ==
LOC: ER 10:19 → EDBD 10:19 → TELE 15:38 → ICU WEST 21:19 → TELE-WESTW 03-03 16:44
PROVIDERS: ADMIT Hospitalist; ATTEND Internal Medicine
PROC: 06HM33Z Insertion of Infusion Device into Right Femoral Vein, Percutaneous Approach (ICD-10-PCS; principal; 2022-02-28)
DX: A41.9 Sepsis, unspecified organism (principal); E43 Unspecified severe protein-calorie malnutrition; N17.0 Acute kidney failure with tubular necrosis; G92.8 Other toxic encephalopathy; R65.21 Severe sepsis with septic shock; A04.72 Enterocolitis due to Clostridium difficile, not specified as recurrent; C19 Malignant neoplasm of rectosigmoid junction; C34.90 Malignant neoplasm of unspecified part of unspecified bronchus or lung; C78.00 Secondary malignant neoplasm of unspecified lung; N39.0 Urinary tract infection, site not specified; D53.9 Nutritional anemia, unspecified; E86.9 Volume depletion, unspecified; Z20.822 Contact with and (suspected) exposure to COVID-19; E87.6 Hypokalemia; I25.10 Atherosclerotic heart disease of native coronary artery without angina pectoris; J44.9 Chronic obstructive pulmonary disease, unspecified; K21.9 Gastro-esophageal reflux disease without esophagitis; N18.9 Chronic kidney disease, unspecified; R68.0 Hypothermia, not associated with low environmental temperature; F17.210 Nicotine dependence, cigarettes, uncomplicated; E86.0 Dehydration; I12.9 Hypertensive chronic kidney disease with stage 1 through stage 4 chronic kidney disease, or unspecified chronic kidney disease; Z82.49 Family history of ischemic heart disease and other diseases of the circulatory system; Z85.048 Personal history of other malignant neoplasm of rectum, rectosigmoid junction, and anus; Z79.899 Other long term (current) drug therapy; Z68.23 Body mass index [BMI] 23.0-23.9, adult; Z92.21 Personal history of antineoplastic chemotherapy
CPT/HCPCS: 36415; 36556; 71045; 74018; 74176; 74250; 80048; 80053; 80061; 80307; 81001; 82270; 82550; 82553; 82728; 82746; 83036; 83605; 83615; 83690; 83735; 83880; 83970; 84100; 84156; 84439; 84443; 84484; 84550; 85007; 85014; 85018; 85027; 85045; 85379; 85610; 85652; 85730; 86141; 87040; 87081; 87086; 87493; 93005; 93970; 94640; 96361; 96365; 96366; 96367; 96368; 96372; 96375; 99291; C9113; G0378; J0330; J0696; J2543; J3480; J3490; Q0161

== ENCOUNTER → 2022-09-01 | Outpatient (CLI) | payer OTHER, MEDICARE ==
[~2022-09-01] MED LIST changes: +CEFU500T43 PO; +MET500T PO
== END | disposition home or self-care (01) ==
LOC: Rad HDHVI 12:47
PROVIDERS: ATTEND Internal Medicine Cardiovascular Disease
DX: I08.0 Rheumatic disorders of both mitral and aortic valves (principal); R00.2 Palpitations; R06.02 Shortness of breath
CPT/HCPCS: 93306

== ENCOUNTER → 2022-12-22 | Outpatient (CLI) | payer OTHER | END | disposition home or self-care (01) | LOC: Rad HDHVI 14:46 | PROVIDERS: ATTEND Internal Medicine Cardiovascular Disease | DX: I10 Essential (primary) hypertension (principal) | CPT/HCPCS: 93880 ==

== ENCOUNTER → 2023-01-28 | Outpatient (CLI) | payer OTHER ==
[~2023-01-28] VITALS: Ht 177.8 cm; Wt 80.7 kg
== END | disposition home or self-care (01) ==
LOC: Rad HDHVI 08:54
PROVIDERS: ATTEND Internal Medicine Cardiovascular Disease
DX: I10 Essential (primary) hypertension (principal); E78.5 Hyperlipidemia, unspecified; J44.9 Chronic obstructive pulmonary disease, unspecified; Z82.49 Family history of ischemic heart disease and other diseases of the circulatory system
CPT/HCPCS: 78452; 93017; 96374; A9500

== ENCOUNTER → 2023-06-15 | Outpatient (CLI) | payer OTHER ==
[~2023-06-15] MED LIST changes: +GABA-1250 PO; -GABA300C10 PO; -LISI20TA28 PO; +LISI20TA56 PO
== END | disposition home or self-care (01) ==
LOC: Rad HDHVI 10:46
PROVIDERS: ATTEND Internal Medicine Cardiovascular Disease
DX: I08.0 Rheumatic disorders of both mitral and aortic valves (principal); I10 Essential (primary) hypertension
CPT/HCPCS: 93306

== ENCOUNTER → 2024-03-25 | Outpatient (CLI) | payer MEDICARE, OTHER ==
[~2024-03-25] MED LIST changes: +HYDR-4798 PO; +IOHEXOL 350 MG/ML 100ML IJ ONE; +TEMA15CA2 PO; +TRIF1TAB10 PO; +[UNRECOGNIZED DRUG - CODE] IV
[2024-03-25 09:20] VITALS: BP 147/73; PULSE 68; RESP 16; O2SAT 97
[2024-03-25 09:43] VITALS: BP 158/77; PULSE 72; RESP 16; O2SAT 97
== END | disposition home or self-care (01) ==
LOC: Rad HDHVI 09:09
PROVIDERS: ATTEND Internal Medicine Cardiovascular Disease
DX: R59.0 Localized enlarged lymph nodes (principal); R91.8 Other nonspecific abnormal finding of lung field; J43.9 Emphysema, unspecified
CPT/HCPCS: 70491; G0463; Q9967

== ENCOUNTER 2024-04-04 05:33 | Inpatient (IN) | payer MEDICARE, OTHER ==
[~2024-04-04] VITALS: Ht 177.8 cm; Wt 77.6 kg
[~2024-04-04 05:33] MED LIST changes: -HYDR-4798 PO; -IOHEXOL 350 MG/ML 100ML IJ ONE; -TEMA15CA2 PO; -TRIF1TAB10 PO; -[UNRECOGNIZED DRUG - CODE] IV
[2024-04-04 07:38] LABS: Chloride 109 mmol/L (98-107); Potassium 4.1 mmol/L (3.5-5.1); Sodium 136 mmol/L (136-145)
[2024-04-04 07:39] LABS: Anion Gap 5 (5-15); Carbon Dioxide 22 mmol/L (20-30)
[2024-04-04 07:40] VITALS: PULSE 87; RESP 18; O2SAT 95
[2024-04-04 07:40] LABS: Basophils # (auto) 0.1 10 ^3/uL (0-0.2); Basophils % (auto) 0.5 % (0.0-2.0); Calcium 9.5 mg/dL (8.7-10.4); Eosinophils # (auto) 0 10 ^3/uL (0-0.8); Eosinophils % (auto) 0.2 % (0.0-7.0); Hematocrit 34.6 % (41.0-53.0); Hemoglobin 11.6 g/dL (13.5-17.5); Lymphocytes % (auto) 7.2 % (10.0-50.0); Mean Corpuscular Hemoglobin 33.5 pg (28.0-32.0); Mean Corpuscular Hgb Conc. 33.7 g/dL (32.0-36.0); Mean Corpuscular Volume 99.4 fL (80.0-100.0); Monocytes # (auto) 0.2 10 ^3/uL (0-1.3); Monocytes % (auto) 1.2 % (0.0-12.0); Neutrophils # (auto) 12.4 10 ^3/uL (1.6-8.6); Neutrophils % (auto) 90.9 % (37.0-80.0); Nucleated Red Blood Cells % 0.2 %; Red Blood Cells 3.48 10^6/uL (4.5-5.90); Red Cell Distribution Width 19.4 % (11.8-14.3); White Blood Cell 13.6 10^3/uL (4.4-10.8)
[2024-04-04 07:45] LABS: BUN/Creatinine Ratio 14.3 (10.0-20.0); Blood Urea Nitrogen 9 mg/dL (9-23); Glucose 90 mg/dL (74-106)
[2024-04-04] MEDS: SODIUM CHLORIDE 0.9% 1,000 ML IV ONE ×2 (08:42→08:43)
[2024-04-04] MEDS: PIPERACILLIN-TAZOB 3.375GM 100 ML IV ONE (08:45)
[2024-04-04 09:58] LABS: Lactic Acid w/Reflex 3.5 mmol/L (0.4-2.0)
[2024-04-04] MEDS ORDERED: ONDANSETRON HCL 4 MG/2 ML VIAL IV PRN (11:00)
[2024-04-04] MEDS: SODIUM CHLORIDE 0.9% 1,000 ML IV SCH (11:00)
[2024-04-04] MEDS ORDERED: NITROGLYCERIN 0.4 MG SL TAB SL PRN (11:00)
[2024-04-04] MEDS ORDERED: PIPERACILLIN-TAZOB 3.375GM 100 ML IV ONE (11:00)
[2024-04-04] MEDS ORDERED: DOCUSATE SOD 100 MG CAP PO PRN (11:00)
[2024-04-04] MEDS: MORPHINE SULFATE INJ 2 MG/ml SYRG IV PRN (11:59)
[2024-04-04 12:24] VITALS: BP 157/75; PULSE 97; RESP 18; TEMP 98.4; O2SAT 96
[2024-04-04] MEDS ORDERED: TPN PER PHARMACY 0 ML IV SCH (13:30)
[2024-04-04 13:33] VITALS: BP 157/76; PULSE 97; RESP 18; TEMP 98.4; O2SAT 96
[2024-04-04] MEDS ORDERED: DEXTROSE (50%) 50ML SYRG IV SCH (14:15)
[2024-04-04 16:57] VITALS: BP 160/85; PULSE 94; RESP 18; TEMP 98.3; O2SAT 95
[2024-04-04] MEDS: InsuLIN REG 1unit/0.01ml Soln (100units/ml) SC SCH (18:00)
[2024-04-04] MEDS: ACCU-CHEK COMFORT CURVE STRIP VI SCH (18:00)
[2024-04-04] MEDS: PIPERACILLIN-TAZOB 3.375GM 100 ML IV SCH (18:06)
[2024-04-04] MEDS: cloNIDine HCL 0.1 MG TAB PO PRN (18:07)
[2024-04-04 20:00] VITALS: PULSE 72; RESP 18
[2024-04-04] MEDS: AMINO ACID INFUSION IN D10W 1,000 ML IV ONE (20:52)
[2024-04-04 21:00] VITALS: BP 147/78; PULSE 101; RESP 21; TEMP 98.4; O2SAT 94
[2024-04-05 05:00] VITALS: BP 148/78; PULSE 83; RESP 18; TEMP 98.2; O2SAT 93
[2024-04-05 06:38] LABS: Basophils # (auto) 0.1 10 ^3/uL (0-0.2); Basophils % (auto) 0.4 % (0.0-2.0); Eosinophils # (auto) 0 10 ^3/uL (0-0.8); Eosinophils % (auto) 0.1 % (0.0-7.0); Hematocrit 28.4 % (41.0-53.0); Hemoglobin 9.6 g/dL (13.5-17.5); Lymphocytes # (auto) 1.1 10 ^3/uL (0.4-5.4); Lymphocytes % (auto) 6.7 % (10.0-50.0); Mean Corpuscular Hemoglobin 33.5 pg (28.0-32.0); Mean Corpuscular Hgb Conc. 33.8 g/dL (32.0-36.0); Mean Corpuscular Volume 99.2 fL (80.0-100.0); Monocytes # (auto) 0.5 10 ^3/uL (0-1.3); Neutrophils % (auto) 89.8 % (37.0-80.0); Red Blood Cells 2.86 10^6/uL (4.5-5.90); Red Cell Distribution Width 19.2 % (11.8-14.3); White Blood Cell 15.6 10^3/uL (4.4-10.8)
[2024-04-05 06:48] LABS: Alkaline Phosphatase 189 U/L (46-116); Anion Gap 7 (5-15); BUN/Creatinine Ratio 15.2 (10.0-20.0); Blood Urea Nitrogen 10 mg/dL (9-23); Calcium 9.3 mg/dL (8.7-10.4); Carbon Dioxide 23 mmol/L (20-30); Chloride 109 mmol/L (98-107); Glucose 117 mg/dL (74-106); Magnesium 1.7 mg/dL (1.6-2.6); Sodium 139 mmol/L (136-145); Triglycerides 73 mg/dL (< 150)
[2024-04-05 06:50] LABS: Alanine Aminotransferase < 9 U/L (7-40); Albumin 2.8 g/dL (3.2-4.8); Aspartate Aminotransferase 16 U/L (13-40); Bilirubin, Total 1.1 mg/dL (0.2-1.0); Phosphorus 2.4 mg/dL (2.4-5.1); Total Protein 6.5 g/dL (5.7-8.2)
[2024-04-05 09:36] VITALS: BP 143/70; PULSE 80; RESP 18; TEMP 98.3; O2SAT 96
[2024-04-05] MEDS ORDERED: TRIF1TAB10 PO ×2 (10:02)
[2024-04-05] MEDS ORDERED: [UNRECOGNIZED DRUG - CODE] IV (10:04)
[2024-04-05] MEDS ORDERED: GABA-1250 PO ×2 (10:05→10:06)
[2024-04-05] MEDS ORDERED: HYDR-4798 PO (10:07)
[2024-04-05] MEDS: GABAPENTIN 300 MG CAP PO SCH (11:03)
[2024-04-05] MEDS: PANTOPRAZOLE 40 MG/10 ML VIAL INJ IV SCH (11:03)
[2024-04-05] MEDS: LISINOPRIL 5 MG TAB PO SCH (11:03)
[2024-04-05] MEDS: SODIUM CHLORIDE 0.9% 1,000 ML IV SCH (12:07)
[2024-04-05 12:23] LABS: Urine Bacteria None Seen /hpf (None Seen)
[2024-04-05 12:32] LABS: Urine Blood 1+ /uL (Negative); Urine Clarity Clear (Clear); Urine Color Yellow (Yellow); Urine Hyaline Cast FEW /lpf (0 - 2); Urine Protein, UAD 2+ (Negative); Urine Specific Gravity 1.021 (1.001-1.035); Urine Urobilinogen Normal (Negative); Urine WBC 1 /hpf (0 - 3); Urine pH 6.5 (5.0-9.0)
[2024-04-05 13:29] VITALS: BP 141/68; PULSE 83; RESP 18; TEMP 98.2; O2SAT 95
[2024-04-05] MEDS: SODIUM PHOSPHATES 20 MEQ in SODIUM CHL 0.9% 100 ML IV ONE (15:29)
[2024-04-05] MEDS ORDERED: TEMA15CA2 PO (15:34)
[2024-04-05 17:05] VITALS: BP 139/82; PULSE 85; RESP 18; TEMP 98.2; O2SAT 96
[2024-04-05 20:00] VITALS: PULSE 81; RESP 19; O2SAT 94
[2024-04-05] MEDS: TPN PER PHARMACY IV NR (20:36)
[2024-04-05 21:00] VITALS: BP 146/73; PULSE 100; RESP 18; TEMP 98; O2SAT 94
[2024-04-05] MEDS: TEMAZEPAM 15 MG CAP PO PRN (22:57)
[2024-04-06] VITALS (9 sets, daily range): BP systolic 132–160; BP diastolic 57–73; PULSE 70–88; RESP 17–18; TEMP 97.7–98.6; O2SAT 9–97
[2024-04-06 06:28] LABS: Basophils # (auto) 0.1 10 ^3/uL (0-0.2); Basophils % (auto) 0.3 % (0.0-2.0); Eosinophils # (auto) 0.1 10 ^3/uL (0-0.8); Eosinophils % (auto) 0.5 % (0.0-7.0); Hematocrit 28.1 % (41.0-53.0); Hemoglobin 9.4 g/dL (13.5-17.5); Lymphocytes # (auto) 1.3 10 ^3/uL (0.4-5.4); Lymphocytes % (auto) 6.8 % (10.0-50.0); Mean Corpuscular Hemoglobin 32.8 pg (28.0-32.0); Mean Corpuscular Hgb Conc. 33.3 g/dL (32.0-36.0); Mean Corpuscular Volume 98.2 fL (80.0-100.0); Monocytes # (auto) 0.8 10 ^3/uL (0-1.3); Monocytes % (auto) 4.2 % (0.0-12.0); Neutrophils # (auto) 16.3 10 ^3/uL (1.6-8.6); Neutrophils % (auto) 88.2 % (37.0-80.0); Nucleated Red Blood Cells % 0.1 %; Red Blood Cells 2.86 10^6/uL (4.5-5.90); Red Cell Distribution Width 19.1 % (11.8-14.3); White Blood Cell 18.5 10^3/uL (4.4-10.8)
[2024-04-06 06:40] LABS: Albumin 2.7 g/dL (3.2-4.8); Alkaline Phosphatase 176 U/L (46-116); Anion Gap 5 (5-15); Aspartate Aminotransferase 15 U/L (13-40); BUN/Creatinine Ratio 17.2 (10.0-20.0); Blood Urea Nitrogen 11 mg/dL (9-23); Carbon Dioxide 25 mmol/L (20-30); Chloride 109 mmol/L (98-107); Glucose 128 mg/dL (74-106); Magnesium 1.7 mg/dL (1.6-2.6); Potassium 3.8 mmol/L (3.5-5.1); Sodium 139 mmol/L (136-145)
[2024-04-06 06:41] LABS: Bilirubin, Total 0.9 mg/dL (0.2-1.0); Phosphorus 2.9 mg/dL (2.4-5.1)
[2024-04-06 07:02] LABS: Alanine Aminotransferase < 9 U/L (7-40)
[2024-04-07] VITALS (7 sets, daily range): BP systolic 126–164; BP diastolic 58–77; PULSE 62–82; RESP 16–18; TEMP 97.6–98.7; O2SAT 92–96
[2024-04-07] MEDS: TPN PER PHARMACY IV NR ×2 (00:04→19:52)
[2024-04-07 06:32] LABS: Albumin 2.6 g/dL (3.2-4.8); Alkaline Phosphatase 186 U/L (46-116); Anion Gap 5 (5-15); Aspartate Aminotransferase 18 U/L (13-40); BUN/Creatinine Ratio 15.6 (10.0-20.0); Blood Urea Nitrogen 10 mg/dL (9-23); Carbon Dioxide 26 mmol/L (20-30); Chloride 109 mmol/L (98-107); Glucose 119 mg/dL (74-106); Magnesium 1.9 mg/dL (1.6-2.6); Potassium 3.6 mmol/L (3.5-5.1); Sodium 140 mmol/L (136-145)
[2024-04-07 06:33] LABS: Bilirubin, Total 0.7 mg/dL (0.2-1.0); Phosphorus 2.5 mg/dL (2.4-5.1); Total Protein 5.9 g/dL (5.7-8.2)
[2024-04-07 06:35] LABS: Alanine Aminotransferase < 9 U/L (7-40)
[2024-04-07] MEDS ORDERED: OMNIPAQUE 12mg/ml 500ml ORAL SOLUTION PO ONE (08:04)
[2024-04-07] MEDS ORDERED: IOHEXOL 300 MG/ML 100ML BOTTLE IJ ONE (10:05)
[2024-04-07 11:49] LABS: Basophils # (auto) 0.1 10 ^3/uL (0-0.2); Basophils % (auto) 0.4 % (0.0-2.0); Eosinophils # (auto) 0.1 10 ^3/uL (0-0.8); Eosinophils % (auto) 0.5 % (0.0-7.0); Hemoglobin 9.3 g/dL (13.5-17.5); Lymphocytes # (auto) 1.5 10 ^3/uL (0.4-5.4); Lymphocytes % (auto) 9.2 % (10.0-50.0); Mean Corpuscular Hemoglobin 32.2 pg (28.0-32.0); Mean Corpuscular Hgb Conc. 32.2 g/dL (32.0-36.0); Mean Corpuscular Volume 99.9 fL (80.0-100.0); Monocytes % (auto) 6.1 % (0.0-12.0); Neutrophils # (auto) 13.8 10 ^3/uL (1.6-8.6); Neutrophils % (auto) 83.8 % (37.0-80.0); Nucleated Red Blood Cells % 0.1 %; Red Cell Distribution Width 19.6 % (11.8-14.3); White Blood Cell 16.4 10^3/uL (4.4-10.8)
[2024-04-08] VITALS (8 sets, daily range): BP systolic 133–160; BP diastolic 63–80; PULSE 68–77; RESP 16–20; TEMP 98–98.4; O2SAT 18–96
[2024-04-08 06:37] LABS: Alanine Aminotransferase 11 U/L (7-40); Albumin 2.4 g/dL (3.2-4.8); Alkaline Phosphatase 209 U/L (46-116); Anion Gap 9 (5-15); Aspartate Aminotransferase 24 U/L (13-40); BUN/Creatinine Ratio 21.8 (10.0-20.0); Blood Urea Nitrogen 12 mg/dL (9-23); Calcium 8.5 mg/dL (8.7-10.4); Carbon Dioxide 22 mmol/L (20-30); Chloride 106 mmol/L (98-107); Glucose 123 mg/dL (74-106); Magnesium 1.8 mg/dL (1.6-2.6); Potassium 3.5 mmol/L (3.5-5.1); Sodium 137 mmol/L (136-145)
[2024-04-08 06:38] LABS: Bilirubin, Total 0.5 mg/dL (0.2-1.0); Phosphorus 2.4 mg/dL (2.4-5.1); Total Protein 5.6 g/dL (5.7-8.2)
[2024-04-08 08:23] LABS: Basophils # (auto) 0 10 ^3/uL (0-0.2); Basophils % (auto) 0.3 % (0.0-2.0); Eosinophils # (auto) 0.1 10 ^3/uL (0-0.8); Eosinophils % (auto) 0.9 % (0.0-7.0); Hematocrit 27.9 % (41.0-53.0); Hemoglobin 9.4 g/dL (13.5-17.5); Lymphocytes # (auto) 1.4 10 ^3/uL (0.4-5.4); Lymphocytes % (auto) 10.4 % (10.0-50.0); Mean Corpuscular Hemoglobin 33.5 pg (28.0-32.0); Mean Corpuscular Hgb Conc. 33.8 g/dL (32.0-36.0); Mean Corpuscular Volume 98.9 fL (80.0-100.0); Monocytes # (auto) 0.9 10 ^3/uL (0-1.3); Monocytes % (auto) 6.9 % (0.0-12.0); Neutrophils # (auto) 10.7 10 ^3/uL (1.6-8.6); Neutrophils % (auto) 81.5 % (37.0-80.0); Red Blood Cells 2.82 10^6/uL (4.5-5.90); Red Cell Distribution Width 19.4 % (11.8-14.3); White Blood Cell 13.2 10^3/uL (4.4-10.8)
[2024-04-08] MEDS: LISINOPRIL 5 MG TAB PO SCH (10:11)
[2024-04-08] MEDS ORDERED: VANCOMYCIN 1GM/200ML 200 ML IV ONE (15:00)
[2024-04-08] MEDS: cefTRIAXone 1GM/50ML D5W 50 ML IV SCH (15:12)
[2024-04-08] MEDS: VANCOMYCIN 1GM/200ML 200 ML IV SCH (15:40)
[2024-04-09 01:00] VITALS: BP 155/76; PULSE 75; RESP 18; TEMP 98.4; O2SAT 88
[2024-04-09 05:00] VITALS: BP 163/72; PULSE 71; RESP 18; TEMP 98; O2SAT 91
[2024-04-09] MEDS: PANTOPRAZOLE 40 MG TAB PO SCH (05:33)
[2024-04-09 08:58] VITALS: BP 131/75; PULSE 71; RESP 16; TEMP 98.1; O2SAT 93
[2024-04-09 13:00] VITALS: BP 134/69; PULSE 60; RESP 18; TEMP 97.8; O2SAT 93
[2024-04-09 16:48] VITALS: BP 145/70; PULSE 63; RESP 16; TEMP 97.8; O2SAT 93
[2024-04-09 21:00] VITALS: BP 147/68; PULSE 72; RESP 20; TEMP 97.8; O2SAT 92
[2024-04-10 01:00] VITALS: BP 155/70; PULSE 72; RESP 19; TEMP 98; O2SAT 90
[2024-04-10 05:00] VITALS: BP 169/75; PULSE 104; RESP 19; TEMP 97.4; O2SAT 96
[2024-04-10 06:07] VITALS: BP 140/88
[2024-04-10 08:44] VITALS: BP 157/83; PULSE 94; RESP 17; TEMP 97.5; O2SAT 93
[2024-04-10 13:00] VITALS: BP 149/78; PULSE 84; RESP 15; TEMP 97.8; O2SAT 93
== END 2024-04-10 15:55 | disposition home health service (06) | DRG 871 ==
LOC: ER 05:33 → OVERFLOW 10:59 → EAST 12:25
PROVIDERS: ADMIT Nurse Practitioner Family; ATTEND Internal Medicine
DX: A41.9 Sepsis, unspecified organism (principal); K65.9 Peritonitis, unspecified; K80.00 Calculus of gallbladder with acute cholecystitis without obstruction; E44.0 Moderate protein-calorie malnutrition; K52.9 Noninfective gastroenteritis and colitis, unspecified; D64.9 Anemia, unspecified; K76.0 Fatty (change of) liver, not elsewhere classified; F17.210 Nicotine dependence, cigarettes, uncomplicated; I10 Essential (primary) hypertension; Z90.49 Acquired absence of other specified parts of digestive tract; Z85.038 Personal history of other malignant neoplasm of large intestine; Z79.899 Other long term (current) drug therapy; Z68.24 Body mass index [BMI] 24.0-24.9, adult
CPT/HCPCS: 36415; 74176; 74177; 76705; 80048; 80053; 81001; 82962; 83605; 83735; 84100; 84478; 85025; 87081; 96365; G0378; J1642; J1815; J2470; J2543

== ENCOUNTER 2025-01-24 14:16 | Inpatient (IN) | payer MEDICARE, OTHER ==
[~2025-01-24] VITALS: Ht 177.8 cm; Wt 69.5 kg
[~2025-01-24 14:16] MED LIST changes: -CEFU500T43 PO; +HYDR-4798 PO; -MET500T PO; +TEMA15CA2 PO; +TRIF1TAB10 PO; +[UNRECOGNIZED DRUG - CODE] IV
--- NOTE | 2025-01-24 14:38 | ED.PDOC ---
History of Present Illness HPI Comments 74-year-old male presents with a chief complaint of abnormal labs x onset one day. Patient mentions that he had blood tests done yesterday and "Dr. Lee told me that my WBC are critically high and that I should go to the ER immediately". Patient states that he feels fine like his normal baseline, but came to the ER at the request of Dr. Lee. Patient did not bring his lab results with him. No other symptoms or modifying factors present at this time. Time Seen by MD: 14:24 Primary Care Provider: NICKI Reviewed Notes: Medications, Allergies Allergies: Coded Allergies: No Known Drug Allergy (Verified Allergy, Unknown, 10/23/17) Home Meds Reported Medications Temazepam (Restoril) 15 Mg Cp, 1 CAP PO QPM, #30 CAP 1 Refill 04/05/24 Hydrocodone-Acetaminophen (Hydrocodone Bitartrate/AC 10-325 mg) 1 Tab Tab, 1 TAB PO TIDPRN, TAB 04/05/24 Gabapentin (Gabapentin) 300 Mg Cap, 300 MG PO BID for 30 Days, MG 04/05/24 Gabapentin (Gabapentin) 300 Mg Cap, 300 MG PO HS for 30 Days, MG 04/05/24 Bevacizumab-Awwb (Mvasi) 100 Mg/4 Ml Inj, 100 MG IV, INJ 04/05/24 Trifluridine-Tipiracil (Lonsurf 15-6.14 mg) 1 Tab Tab, 2 TAB PO QPM, TAB 04/05/24 Trifluridine-Tipiracil (Lonsurf 15-6.14 mg) 1 Tab Tab, 3 TAB PO QAM, TAB 04/05/24 Lisinopril (Lisinopril) 20 Mg Tab, 20 MG PO DAILY for 30 Days, MG 02/17/22 Information Source: Patient Mode of Arrival: Ambulatory Severity: Moderate Timing: Days Duration: Since onset Prehospital treatment: None Past Medical History PAST MEDICAL HISTORY: Cancer, HTN Surgical History: Pt Confused Family History Family History: Unknown Social History Smoker: Cigarettes, Greater Than 1 Pack/Day Alcohol: Occasionally Drugs: Denies Drug Use Lives In: Home Constitutional: reports: others (ELEVATED WBC); denies: chills, diaphoresis, fatigue, fever, malaise, sweats, weakness EENTM: denies: blurred vision, double vision, ear bleeding, ear discharge, ear drainage, ear pain, ear ringing, eye pain, eye redness, hearing loss, mouth pain, mouth swelling, nasal discharge, nose bleeding, nose congestion, nose pain, photophobia, tearing, throat pain, throat swelling, voice changes, others Respiratory: denies: cough, hemoptysis, orthopnea, SOB at rest, shortness of breath, SOB with excertion, stridor, wheezing, others Cardiovascular: denies: chest pain, dizzy spells, diaphoresis, Dyspnea on exertion, edema, irregular heart beat, left arm pain, lightheadedness, palpitations, PND, syncope, others Gastrointestinal: denies: abdomen distended, abdominal pain, blood streaked bowels, constipated, diarrhea, dysphagia, difficulty swallowing, hematemesis, melena, nausea, poor appetite, poor fluid intake, rectal bleeding, rectal pain, vomiting, others Genitourinary: denies: burning, dysuria, flank pain, frequency, hematuria, incontinence, penile discharge, penile sore, pain, testicle pain, testicle swelling, urgency, others Neurological: denies: dizziness, fainting, headache, left sided numbness, left sided weakness, numbness, paresthesia, pre-existing deficit, right sided numbness, right sided weakness, seizure, speech problems, tingling, tremors, weakness, others Musculoskeletal: denies: back pain, gout, joint pain, joint swelling, muscle pain, muscle stiffness, neck pain, others Integumetry: denies: bruises, change in color, change in hair/nails, dryness, laceration, lesions, lumps, rash, wounds, others Allergic/Immunocompromised: denies: Difficulty Healing, Frequent Infections, Hives, Itching, others Hematologic/Lymphatic: denies: anemia, blood clots, easy bleeding, easy bruising, swollen glands, others Endocrine: denies: excessive hunger, excessive sweating, excessive thirst, excessive urination, flushing, intolerance to cold, intolerance to heat, unexplained weight gain, unexplained weight loss, others Psychiatric: denies: anxiety, bipolar disorder, depression, hopeless, panic disorder, schizophrenia, sleepless, suicidal, others All Other Systems: Reviewed and Negative Physical Exam General Appearance: Moderate Distress, Normal HEENT: Normal ENT Inspection, Pharynx Normal, TMs Normal Neck: Full Range of Motion, Non-Tender, Normal, Normal Inspection Respiratory: Chest Non-Tender, No Accessory Muscle Use, No Respiratory Distress, Other (Coarse breath sounds) Cardiovascular: No Edema, No JVD, No Murmur, No Gallop, Normal Peripheral Pulses, Regular Rate/Rhythm Breast Exam: Deferred Gastrointestinal: No Organomegaly, Non Tender, No Pulsatile Mass, Normal Bowel Sounds, Soft Genitalia: Deferred Pelvic: Deferred Rectal: Deferred Extremities: No calf tenderness, Normal capillary refill, Normal inspection, Normal range of motion, Non-tender, Pedal edema, Swelling (Bilateral lower extremity) Musculoskeletal : Apperance: Normal Neurologic: Alert, office nurse practitioner II-XII nml as Tested, No Motor Deficits, Normal Affect, Normal Mood, No Sensory Deficits Cerebellar Function: Normal Reflexes: Normal Skin: Dry, Normal Color, Warm Peripheral Pulses: 3+ Radial (R), 3+ Radial (L) Lymphatic: No Adenopathy Was a procedure done? Was a procedure done?: No Differential Dx Considerations may include: Anemia Electrolyte imbalance X-Ray, Labs, Meds, VS Vital Signs Date Time Temp Pulse Resp B/P (MAP) Pulse Ox O2 Delivery O2 Flow Rate FiO2 01/24/25 14:24 99.6 91 20 144/57 (86) 97 99.6 Lab Test 01/24/25 14:44 Range/Units White Blood Count 16.0 H 4.4-10.8 10^3/uL Red Blood Count 2.44 L 4.5-5.90 10^6/uL Hemoglobin 8.6 L 13.5-17.5 g/dL Hematocrit 26.0 L 41.0-53.0 % Mean Corpuscular Volume 106.7 H 80.0-100.0 fL Mean Corpuscular Hemoglobin 35.3 H 28.0-32.0 pg Mean Corpuscular Hemoglobin Concent 33.0 32.0-36.0 g/dL Red Cell Distribution Width 25.5 H 11.8-14.3 % Platelet Count 74 L 140-450 10^3/uL Mean Platelet Volume 10.1 6.9-10.8 fL Neutrophils (%) (Auto) 37.0-80.0 % Lymphocytes (%) (Auto) 10.0-50.0 % Monocytes (%) (Auto) 0.0-12.0 % Basophils (%) (Auto) 0.0-2.0 % Neutrophils # (Auto) 1.6-8.6 10 ^3/uL Lymphocytes # (Auto) 0.4-5.4 10 ^3/uL Monocytes # (Auto) 0-1.3 10 ^3/uL Differential Total Cells Counted 100.0 100 Neutrophils % (Manual) 66 37.0-80.0 Band Neutrophils % (Manual) 3 Lymphocytes % (Manual) 25 10.0-50.0 Monocytes % (Manual) 3 0-12 Eosinophils % (Manual) 3 0-7 Basophils % (Manual) 0 0.0-2.0 Metamyelocytes % (manual) 0 Myelocytes % (Manual) 0 Promyelocytes % (Manual) 0 Blast Cells % (Manual) 0 Reactive Lymphocytes 0 Platelet Estimate Decreased Anisocytosis (manual) Slight Macrocytosis Slight Target Cells Few Sodium Level 141 136-145 mmol/L Potassium Level 4.2 3.5-5.1 mmol/L Chloride Level 108 H 98-107 mmol/L Carbon Dioxide Level 23 20-31 mmol/L Anion Gap 10 5-15 Blood Urea Nitrogen 43 H 9-23 mg/dL Creatinine 2.07 H 0.700-1.30 mg/dL Glomerular Filtration Rate Calc 33 >90 mL/min BUN/Creatinine Ratio 20.8 H 10.0-20.0 Serum Glucose 105 74-106 mg/dL Calcium Level 8.5 L 8.7-10.4 mg/dL Total Bilirubin 0.7 0.2-1.0 mg/dL Aspartate Amino Transferase (AST) 35 13-40 U/L Alanine Aminotransferase (ALT) 19 7-40 U/L Alkaline Phosphatase 265 H 46-116 U/L Troponin I High Sensitivity 52 </=54 ng/L Total Protein 6.8 5.7-8.2 g/dL Albumin 2.9 L 3.2-4.8 g/dL Patient alert. Was referred by his primary care physician for possible abnormal labs. Kidney function elevated. Cardiac marker within normal limits. Alkaline phosphatase elevated pain He does have cancer which has metastasized. WBC elevated. He does have anemia. Chest x-ray does show chronic condition. Possible pneumonitis. Establish intravenous access. Was given Rocephin. Was given azithromycin. Contact Dr. Lee who uses physician. Explained to the patient his lab results. Continue monitoring. Time of 1ST Reevaluation: 14:24 (EXPLAINED TO THE PATIENT THAT THEY MAY BE STAYING WITH US IN THE HOSPITAL, BUT IF STABLE FOR DISCHARGE, THEY WILL BE NOTIFIED AND SENT HOME. ) Reevaluation 1ST: Unchanged Time of 2ND Reevaluation: 14:54 Reevaluation 2ND: Unchanged Patient Education/Counseling: Diagnosis, Treatment Family Education/Counseling: Diagnosis, Treatment Departure 1 Departure Time of Disposition: 16:14 Impression: Primary Impression: Pneumonitis Additional Impressions: Macrocytic anemia Leukocytosis Qualified Codes: D72.829 - Elevated white blood cell count, unspecified Disposition: 09 ADMITTED INPATIENT Admit to: Med Surg Condition: Guarded Critical Care Note Critical Care Time?: No Stability Stability form required: No Heart Score Heart Score: Heart Score Response (Comments) Value History N/A 0 EKG N/A 0 Age N/A 0 Risk Factors N/A 0 Troponin N/A 0 Total 0 I personally scribed for ROSANA BUENROSTRO MD ([email or web address]) on 01/24/25 at 14:37. Electronically submitted by Tato Mead ([email or web address]). ROSANA BUENROSTRO MD January 24, 2025 14:37
[2025-01-24 15:02] LABS: Hemoglobin 8.6 g/dL (13.5-17.5); Mean Corpuscular Hemoglobin 35.3 pg (28.0-32.0); Mean Corpuscular Volume 106.7 fL (80.0-100.0); Platelet Count (auto) 74 10^3/uL (140-450); Red Blood Cells 2.44 10^6/uL (4.5-5.90)
[2025-01-24 15:04] LABS: Red Cell Distribution Width 25.5 % (11.8-14.3)
[2025-01-24 15:05] LABS: Basophils % (manual) 0 (0.0-2.0); Blast Cells 0; Metamyelocytes % 0; Myelocytes % 0; Promyelocytes % 0; Reactive Lymphocytes 0
[2025-01-24 15:17] LABS: Band Neutrophils % (manual) 3; Eosinophils % (manual) 3 (0-7); Lymphocytes % (manual) 25 (10.0-50.0); Monocytes % (manual) 3 (0-12)
[2025-01-24 15:18] LABS: Alanine Aminotransferase 19 U/L (7-40); Albumin 2.9 g/dL (3.2-4.8); Alkaline Phosphatase 265 U/L (46-116); Anion Gap 10 (5-15); Aspartate Aminotransferase 35 U/L (13-40); BUN/Creatinine Ratio 20.8 (10.0-20.0); Bilirubin, Total 0.7 mg/dL (0.2-1.0); Blood Urea Nitrogen 43 mg/dL (9-23); Calcium 8.5 mg/dL (8.7-10.4); Carbon Dioxide 23 mmol/L (20-31); Chloride 108 mmol/L (98-107); Glucose 105 mg/dL (74-106); Macrocytosis Slight; Platelet Estimate Decreased; Potassium 4.2 mmol/L (3.5-5.1); Sodium 141 mmol/L (136-145); Target Cell FEW; Total Protein 6.8 g/dL (5.7-8.2)
[2025-01-24 15:19] LABS: Anisocytosis Slight
--- NOTE | 2025-01-24 15:25 | DVH ---
INDICATION: sob TECHNIQUE: Frontal view of the chest. COMPARISON: CHEST PORTABLE on DOS: 02/28/22, CXRP on DOS: 02/28/22 FINDINGS: Finding. The heart and mediastinal contours are grossly unremarkable. There is blunting of the right costophrenic sulcus suggesting pleural reaction or small pleural effusion.. The lungs demonstrate in terstitial fibrosis with ill-defined densities seen throughout both lungs. There is hyperaeration of the lung with flattening of both hemidiaphragms suggesting chronic pulmonary disease.. The bony st ructures of the chest are intact without fracture. There is a right-sided port-A-Cath with tip in sup erior vena cava. IMPRESSION: 1. No evidence of acute disease. 2. Ill-defined densities seen in both lungs. Recommend CT of the chest for further workup. 3. Chronic obstructive pulmonary disease 4. Blunting of right costophrenic sulcus suggesting pleural reaction versus small pleural effusion
[2025-01-24] MEDS ORDERED: cefTRIAXone 1GM/50ML D5W 50 ML IV ONE (16:30)
[2025-01-24] MEDS ORDERED: AZITHROMYCIN 500MG/ 250ML 250 ML IV ONE (16:30)
[2025-01-25 01:50] VITALS: BP 133/62; PULSE 91; RESP 16; TEMP 97.8; O2SAT 95
[2025-01-25] MEDS ORDERED: MORPHINE SULFATE INJ 2 MG/ml SYRG IV PRN (13:00)
[2025-01-25] MEDS ORDERED: [UNRECOGNIZED DRUG - OTHER] IV SCH (13:00)
[2025-01-25] MEDS ORDERED: NITROGLYCERIN 0.4 MG SL TAB SL PRN (13:00)
--- NOTE | 2025-01-25 13:18 | DVHPN2 ---
Progress Note - Dictate Date Seen: January 25, 2025 Medical Necessity Reason Pt with a Central, PICC or Fol: No Subjective PT WITH METASTATIC COLON CA METS TO LIVE AND LUNG CURRENTLY ON CHEMO AND BEING TREATED AT [facility] COPD CONT TOBACCO USE HX OF CHOLECYSTITIS TREATED CONSEVATIVELY WITHOUT SURGERY SECONDARY TO METASTATIC DISEASE NOW WITH SEVERE ANEMIA LEUKOCYTOSIS CARDIAC STATUS STABLE I BELIEVE PT IS HIGH RISK FROM COLON CA NOW WITH PROGRESSIVE SX AND NEW LESIONS NOTED AT [facility] DESPITE ON CHEMO CONSIDER TRANSFER TO [facility] ANEMIA CAHEXIA vital signs Vital Sign Date Time Temp Pulse Resp B/P (MAP) Pulse Ox O2 Delivery O2 Flow Rate FiO2 01/25/25 01:50 97.8 91 16 133/62 (85) 95 97.8 medications Current Medications Medications Dose Ordered Sig/Samir Route Start Time Stop Time Status Last Admin Dose Admin Nitroglycerin 0.4 mg Q5MINP PRN SL 01/25/25 13:00 Morphine Sulfate 2 mg Q30M PRN IV 01/25/25 13:00 Patient Own Medication 1 g Q6H IV 01/25/25 13:00 UNV Gabapentin 300 mg BID PO 01/25/25 22:00 UNV Gabapentin 300 mg HS PO 01/25/25 22:00 UNV Acetaminophen/ Hydrocodone Bitart 1 tab TIDPRN PO 01/25/25 14:00 UNV Lisinopril 20 mg DAILY PO 01/26/25 10:00 UNV Temazepam 15 mg QPM PO 01/25/25 18:00 UNV laboratory and microbiology Laboratory Tests 01/24/25 14:44 Test 01/24/25 14:44 Range/Units Serum Glucose 105 74-106 mg/dL Problem List METASTATIC COLON CA METS TO LIVE AND LUNG CURRENTLY ON CHEMO AND BEING TREATED AT [facility] COPD CONT TOBACCO USE HX OF CHOLECYSTITIS TREATED CONSEVATIVELY WITHOUT SURGERY SECONDARY TO METASTATIC DISEASE NOW WITH SEVERE ANEMIA LEUKOCYTOSIS CARDIAC STATUS STABLE I BELIEVE PT IS HIGH RISK FROM COLON CA NOW WITH PROGRESSIVE SX AND NEW LESIONS NOTED AT [facility] DESPITE ON CHEMO CONSIDER TRANSFER TO [facility] ANEMIA CAHEXIA Assessment/Plan ABX CT ABD PELVIS IRON STUDY Plan discussed with: Patient Critical Care Time(min): 35 NICKI RIVAS MD January 25, 2025 13:18
[2025-01-25] MEDS ORDERED: HYDROcodone-ACET 10/325MG TAB PO SCH (14:00)
[2025-01-25] MEDS ORDERED: GABAPENTIN 300 MG CAP PO SCH ×2 (14:00→22:00)
[2025-01-25] MEDS ORDERED: MEROPENEM 1GM IVPB 50 ML IV SCH (17:00)
[2025-01-25] MEDS ORDERED: TEMAZEPAM 15 MG CAP PO SCH (18:00)
[2025-01-26] MEDS ORDERED: LISINOPRIL 20 MG TAB PO SCH (10:00)
[2025-01-26] MEDS ORDERED: IRON SUCROSE COMPLEX 110 ML IV SCH (12:00)
== END 2025-01-24 20:14 | disposition left against medical advice (07) | DRG 812 ==
LOC: ER 14:19 → OVERFLOW 19:54
PROVIDERS: ADMIT Internal Medicine Cardiovascular Disease; ATTEND Internal Medicine Cardiovascular Disease
DX: D64.9 Anemia, unspecified (principal); C18.9 Malignant neoplasm of colon, unspecified; C78.00 Secondary malignant neoplasm of unspecified lung; C78.7 Secondary malignant neoplasm of liver and intrahepatic bile duct; I10 Essential (primary) hypertension; J44.9 Chronic obstructive pulmonary disease, unspecified; D72.829 Elevated white blood cell count, unspecified; J98.4 Other disorders of lung; F17.210 Nicotine dependence, cigarettes, uncomplicated; Z53.29 Procedure and treatment not carried out because of patient's decision for other reasons
CPT/HCPCS: 36415; 71045; 80053; 84484; 85007; 85027; G0378

== ENCOUNTER 2025-03-23 07:07 | Day surgery (SDC) | payer MEDICARE, OTHER ==
[~2025-03-23] VITALS: Ht 177.8 cm; Wt 64.0 kg
[2025-03-23] VITALS (9 sets, daily range): BP systolic 94–123; BP diastolic 48–69; PULSE 60–79; RESP 12–17; TEMP 97.4–98.8; O2SAT 96–99
[~2025-03-23 07:07] MED LIST changes: +BACL5TAB2 PO; +BUMEX2MG; +DOCU250C12 PO; +LACT10SO3 PO; -LISI20TA56 PO; +LORA-1123 PO; +MEGE20TA3 PO; +METO-158 PO; +PANT40T PO; +POLY335015 PO; +POM INJ; +POTA-220 PO; -TEMA15CA2 PO; +TRIF0.27 PO; -TRIF1TAB10 PO; -[UNRECOGNIZED DRUG - CODE] IV
== END 2025-03-23 14:41 | disposition home or self-care (01) ==
LOC: CATH 07:07
PROVIDERS: ATTEND Internal Medicine Cardiovascular Disease
DX: D64.9 Anemia, unspecified (principal); C18.9 Malignant neoplasm of colon, unspecified; C78.7 Secondary malignant neoplasm of liver and intrahepatic bile duct; C78.00 Secondary malignant neoplasm of unspecified lung; I11.0 Hypertensive heart disease with heart failure; I50.23 Acute on chronic systolic (congestive) heart failure; J44.9 Chronic obstructive pulmonary disease, unspecified; F17.210 Nicotine dependence, cigarettes, uncomplicated; Z79.899 Other long term (current) drug therapy
CPT/HCPCS: 36430; 86850; 86900; 86901; 86920; J7040; P9016

== ENCOUNTER 2025-04-05 10:36 | Outpatient (CLI) | payer MEDICARE, OTHER ==
[2025-04-05 10:15] VITALS: BP 128/63; PULSE 65; RESP 16; O2SAT 98
[2025-04-05] MEDS: IRON SUCROSE 20 mg/ml 10ml VIAL IV ONE (11:04)
[2025-04-05] MEDS: IRON SUCROSE COMPLEX 110 ML IV ONE (11:16)
[2025-04-05 12:27] VITALS: BP 136/69; PULSE 65; RESP 16; O2SAT 98
== END 2025-04-05 17:00 | disposition home or self-care (01) ==
LOC: CHF HDHVI 10:36
PROVIDERS: ATTEND Internal Medicine Cardiovascular Disease
DX: D50.0 Iron deficiency anemia secondary to blood loss (chronic) (principal); C18.9 Malignant neoplasm of colon, unspecified; I11.0 Hypertensive heart disease with heart failure; I50.23 Acute on chronic systolic (congestive) heart failure; C78.7 Secondary malignant neoplasm of liver and intrahepatic bile duct; C78.00 Secondary malignant neoplasm of unspecified lung; Z87.891 Personal history of nicotine dependence; Z79.899 Other long term (current) drug therapy
CPT/HCPCS: 96365; G0463; J1642; J1756

== ENCOUNTER → 2025-04-07 | Day surgery (SDC) | payer MEDICARE, OTHER ==
[~2025-04-07] VITALS: Ht 177.8 cm; Wt 67.6 kg
[2025-04-07] VITALS (13 sets, daily range): BP systolic 114–138; BP diastolic 57–88; PULSE 69–74; RESP 10–16; TEMP 97.6–98.2; O2SAT 97–98
[2025-04-07] MEDS: DOXYCYCLINE 100 MG TAB/CAP PO ONE (12:15)
== END | disposition home or self-care (01) ==
LOC: CATH 07:01
PROVIDERS: ATTEND Internal Medicine Cardiovascular Disease
DX: D64.9 Anemia, unspecified (principal); I11.0 Hypertensive heart disease with heart failure; I50.23 Acute on chronic systolic (congestive) heart failure; C18.9 Malignant neoplasm of colon, unspecified; C78.7 Secondary malignant neoplasm of liver and intrahepatic bile duct; C78.00 Secondary malignant neoplasm of unspecified lung; J44.9 Chronic obstructive pulmonary disease, unspecified; Z87.891 Personal history of nicotine dependence; Z79.899 Other long term (current) drug therapy
CPT/HCPCS: 36430; P9016; 86850; 86900; 86901; 86920

== ENCOUNTER 2025-04-28 06:47 | Inpatient (IN) | payer MEDICARE, OTHER ==
[2025-04-28] VITALS (7 sets, daily range): BP systolic 125–138; BP diastolic 71–77; PULSE 93–111; RESP 16–20; TEMP 97.9–98.7; O2SAT 95–98
[~2025-04-28] VITALS: Ht 177.8 cm; Wt 67.3 kg
--- NOTE | 2025-04-28 07:15 | ED.PDOC ---
Irvin. trauma (HPI) HPI Comments HPI: This is a 75 year old male presenting to the ED with chief complaint of fall. Patient reports that last night, he had tripped over a piece of wood in his garage, falling and being unable to get up from the ground until his found him 11 hours later. Patient relays that he did not lose consciousness and did not hit his head, however, he does have skin tears to his bilateral arms and bilateral lower leg swelling. Patient's notes patient is currently undergoing chemo therapy through infusions and at home treatment for colon/liver/lung cancer. Patient denies any head injury, LOC, nausea, vomiting, dizziness, chest pain, back pain, or active bleeding at this time. Initial Vitals BP: 136/72 HR: 94 RR: 18 O2: 98% Temp: 98F Past Medical History: CHF, HTN, Colon/liver/lung cancer, anemia Past Surgical History: None Social History: Denies ETOH, smoking, and drug use. Medications: Metoprolol, Lisinopril, Chemo infusions every 2 weeks and chemo medication at home Allergies: NKDA HPI: Poor Historian. REVIEW OF SYSTEMS: CONSTITUTIONAL: Denies acute: fever, diaphoresis, chills, HEAD: Denies acute: headache, photophobia Eyes: Denies acute: Double vision, vision loss, eye pain, eye discharge. EARS: Denies acute: tinnitus, hearing loss, ear discharge, ear pain, THROAT: Denies acute: sore throat, swelling, difficulty swallowing , pain with swallowing, change in voice. NECK: Denies acute: neck pain, neck swelling, stiff neck. HEART: Denies acute : chest pain, palpitations, LUNGS: Denies acute: SOB, wheezing, cough, hemoptysis ABDOMEN: Denies acute: abdominal pain, Nausea, Vomiting, diarrhea, melena , hematemesis, hematochezia SKIN: Denies acute: rash, redness, lesions, itchiness. EXTREMITIES: Denies acute: calf pain, numbness, tingling, weakness, denies pain in extremity. Denies acute: Low back pain. Neuro: Denies acute: focal neurological deficit, motor or sensory focal neurological deficit, tremors, seizure like activity, confusion, dizziness, change in mental status, loss of bowel or bladder function, cauda equina like symptoms. : Denies acute: dysuria, hematuria, flank pain, increase in urinary frequency. PSYCH: Denies acute: hallucination, suicidal ideation, homicidal ideation. PHYSICAL EXAM: General: -----no---acute distress, awake and alert. Head: normocephalic, atraumatic. Neck: supple, trachea is midline, no swelling. Throat: Normal phonation. Eyes:, no erythema, no purulent discharge, no proptosis, no icterus. Heart: regular rate, regular rhythm, no significant murmur appreciated. Lungs: no apparent respiratory distress, Able to speak in full sentences. No wheezing, no rhonchi, no crackles. No stridors Clear to auscultation bilaterally. Abdomen: non tender to palpation, non distended, soft, no guarding, no rebound, + bowel sounds. Neuro: Awake, Alert, oriented to name, self, situation, follows commands GCS=15. Speech is normal. Skin: no petechia, no purpura, no cyanosis, non-pale, not jaundice. Lower extremities: --2/4 bilateral - Pitting edema no deformity, no focal swelling, no calf TTP. Makes eye contact. moves all four extremities. Face: no apparent facial droop. Above right posterior elbow noted skin tear. No active bleeding. No nuchal rigidity, Kernig's sign, Brudzinski's sign, no meningeal signs. ED COURSE: DISCLAIMER: This medical document was created using an electronic medical record system with voice recognition software and computerized dictation system. Although this document has been carefully reviewed, there might still be some phonetic and typographical errors. Occasional wrong-word or "sound-alike" substitutions may have occurred due to the inherent limitations of voice recognition software. These areas are purely typographical due to imperfections of the software programs and do not reflect any compromise in the patient's medical care. Please read the chart carefully and recognize, using context, where these substitutions have occurred. Chief Complaint: Fall Injury Time Seen by MD: 07:10 Primary Care Provider: NICKI Reviewed notes: Medications, Allergies Information Source: Patient, Spouse Mode of Arrival: Ambulatory Was a procedure done? Was a procedure done?: No X-Ray, Labs, Meds, VS Vital Signs Date Time Temp Pulse Resp B/P (MAP) Pulse Ox O2 Delivery O2 Flow Rate FiO2 04/28/25 08:02 105 20 96 Room Air* 0 21 04/28/25 07:53 90 04/28/25 07:30 97.5 105 20 113/58 (76) 96 97.5 04/28/25 06:50 98.0 94 18 136/72 98 98.0 Lab Test 04/28/25 07:25 Range/Units White Blood Count 11.3 H 4.4-10.8 10^3/uL Red Blood Count 2.84 L 4.5-5.90 10^6/uL Hemoglobin 9.3 L 13.5-17.5 g/dL Hematocrit 27.4 L 41.0-53.0 % Mean Corpuscular Volume 96.6 80.0-100.0 fL Mean Corpuscular Hemoglobin 32.9 H 28.0-32.0 pg Mean Corpuscular Hemoglobin Concent 34.1 32.0-36.0 g/dL Red Cell Distribution Width 27.5 H 11.8-14.3 % Platelet Count 44 L 140-450 10^3/uL Mean Platelet Volume 8.7 6.9-10.8 fL Neutrophils (%) (Auto) 85.0 H 37.0-80.0 % Lymphocytes (%) (Auto) 10.4 10.0-50.0 % Monocytes (%) (Auto) 3.1 0.0-12.0 % Eosinophils (%) (Auto) 1.0 0.0-7.0 % Basophils (%) (Auto) 0.5 0.0-2.0 % Neutrophils # (Auto) 9.6 H 1.6-8.6 10 ^3/uL Lymphocytes # (Auto) 1.2 0.4-5.4 10 ^3/uL Monocytes # (Auto) 0.3 0-1.3 10 ^3/uL Eosinophils # (Auto) 0.1 0-0.8 10 ^3/uL Basophils # (Auto) 0.1 0-0.2 10 ^3/uL Nucleated Red Blood Cells 0.2 % Platelet Estimate Pending Sodium Level 135 L 136-145 mmol/L Potassium Level 3.9 3.5-5.1 mmol/L Chloride Level 107 98-107 mmol/L Carbon Dioxide Level 21 20-31 mmol/L Anion Gap 7 5-15 Blood Urea Nitrogen 28 H 9-23 mg/dL Creatinine 1.39 H 0.700-1.30 mg/dL Glomerular Filtration Rate Calc 53 >90 mL/min BUN/Creatinine Ratio 20.1 H 10.0-20.0 Serum Glucose 87 74-106 mg/dL Lactic Acid Level 1.9 0.4-2.0 mmol/L Calcium Level 8.4 L 8.7-10.4 mg/dL Magnesium Level 1.4 L 1.6-2.6 mg/dL Total Bilirubin 1.3 H 0.2-1.0 mg/dL Aspartate Amino Transferase (AST) 20 13-40 U/L Alanine Aminotransferase (ALT) < 9 7-40 U/L Alkaline Phosphatase 147 H 46-116 U/L Creatine Kinase 38 L 46-171 U/L Troponin I High Sensitivity 77 *H </=54 ng/L B-Type Natriuretic Peptide 261.58 0-100 pg/mL Total Protein 6.8 5.7-8.2 g/dL Albumin 2.7 L 3.2-4.8 g/dL [place] [id number] Ph: [phone] DIAGNOSTIC IMAGING Diagnostic Imaging Report : [id number] Signed PATIENT: CLINT HE GACCT: [id number] UNIT: [id number] : 1950 LOC: ER ROOM / BED: / AGE / SEX: 75 / M ADM STATUS: REG ER SERVICE [id number] ORDERING PHYSICIAN: FAN MAYERS DO PROCEDURE(s): HWOCT - HEAD WITHOUT CONTRAST REASON: fall, weak ORDER NUMBER(s): [id number], ACCESSION NUMBER(s): [id number] EXAM: CT HEAD WITHOUT CONTRAST INDICATION: Fall, weak TECHNIQUE: CT of the head without intravenous contrast. Coronal and sagittal reformatted images are submitted. Radiation Dose : 1. Head: CT Dose: CTDI volume is 51.78 mGy. Dose-length product is 828.51 mGy*cm The dose indicators for CT are the volume Computed Tomography (CT) Dose Index (CTDIvol) and the Dose Length Product (DLP), and are measured in units of mGy and mGy-cm, respectively. These indicators are not patient dose, but values generated from the CT scanner acquisition factors. The report includes radiation exposure data for exposures received during this examination. All CT scans at this medical facility are performed using dose modulation techniques as approp riate to a performed exam including the following: Automated exposure control was utilized; adjustment of the MA and/or KV according to patient size; and use of iterative reconstruction technique. COMPARISON: None FINDINGS: There is no evidence of acute intracranial hemorrhage, extra-axial collection, mass effect, midline shift, herniation or hydrocephalus. There are periventricular and subcortical hypodensities, nonspecific, but likely reflecting sequelae of chronic microvascular ischemic changes. The ventricles, sulci and cisterns are age appropriate. The majano-white differentiation is intact. The visualized paranasal sinuses and mastoid air cells are clear. No depressed calvarial fracture. The surrounding soft tissues are unremarkable. IMPRESSION: 1. No acute intracranial abnormality. ATED BY: NAPOLEON DURAN MD DICTATED DATE/TIME: 04/28/25 0757 SIGNED BY: NAPOLEON DURAN MD SIGNED DATE/TIME: 04/28/25 0757 CC: Time of 1ST Reevaluation: 08:10 Reevaluation 1ST: Unchanged Patient Education/Counseling: Diagnosis, Treatment Family Education/Counseling: Diagnosis, Treatment Departure 1 Departure Time of Disposition: 07:59 Impression: Primary Impression: Fall Additional Impressions: Elevated troponin Generalized weakness Hypomagnesemia Hypoalbuminemia Thrombocytopenia Anemia Disposition: ADMITTED INPATIENT Admit to: [facility] Condition: Guarded Discharged With: Self Critical Care Note Critical Care Time?: No Heart Score Heart Score: Heart Score Response (Comments) Value History Moderate Suspicious 1 Age >65 2 Risk Factors >3 or Hx ASHD 2 Total 5 I personally scribed for FAN MAYERS DO ([email or web address]) on 04/28/25 at 07:15. Electronically submitted by Brady Peterson ([email or web address]). I personally scribed for FAN MAYERS DO ([email or web address]) on 04/28/25 at 07:59. Electronically submitted by Brady Peterson ([email or web address]). I personally scribed for FAN MAYERS DO ([email or web address]) on 04/28/25 at 08:02. Electronically submitted by Brady Peterson ([email or web address]). I personally scribed for FAN MAYERS DO ([email or web address]) on 04/28/25 at 08:04. Electronically submitted by Brady Peterson ([email or web address]). FAN MAYERS DO Apr 28, 2025 07:15
[2025-04-28 07:38] LABS: Hemoglobin 9.3 g/dL (13.5-17.5)
[2025-04-28 07:44] LABS: Hematocrit 27.4 % (41.0-53.0); Mean Corpuscular Hemoglobin 32.9 pg (28.0-32.0); Mean Corpuscular Volume 96.6 fL (80.0-100.0); Nucleated Red Blood Cells % 0.2 %
[2025-04-28 07:54] LABS: Anion Gap 7 (5-15); BUN/Creatinine Ratio 20.1 (10.0-20.0); Carbon Dioxide 21 mmol/L (20-31); Creatine Kinase IFCC 38 U/L (46-171); Glucose 87 mg/dL (74-106); Potassium 3.9 mmol/L (3.5-5.1); Total Protein 6.8 g/dL (5.7-8.2)
[2025-04-28 07:56] LABS: Alanine Aminotransferase < 9 U/L (7-40); Albumin 2.7 g/dL (3.2-4.8); Alkaline Phosphatase 147 U/L (46-116); Bilirubin, Total 1.3 mg/dL (0.2-1.0); Blood Urea Nitrogen 28 mg/dL (9-23); Calcium 8.4 mg/dL (8.7-10.4); Chloride 107 mmol/L (98-107); Magnesium 1.4 mg/dL (1.6-2.6); Sodium 135 mmol/L (136-145)
--- NOTE | 2025-04-28 08:00 | DVH ---
EXAM: CT HEAD WITHOUT CONTRAST INDICATION: Fall, weak TECHNIQUE: CT of the head without intravenous contrast. Coronal and sagittal reformatted images are s ubmitted. Radiation Dose : 1. Head: CT Dose: CTDI volume is 51.78 mGy. Dose-length product is 828.51 mGy*cm The dose indicators for CT are the volume Computed Tomography (CT) Dose Index (CTDIvol) and the Dose Length Product (DLP), and are measured in units of mGy and mGy-cm, respectively. These indicators are not patient dose, but values generated from the CT scanner acquisition factors. The report includes radiation exposure data for exposures received during this examination. All CT scans at this medical facility are performed using dose modulation techniques as appropriate to a performed exam including the following: Automated exposure control was utilized; adjustment of the MA and/or KV according to patient size; and use of iterative reconstruction technique. COMPARISON: None FINDINGS: There is no evidence of acute intracranial hemorrhage, extra-axial collection, mass effect, midline s hift, herniation or hydrocephalus. There are periventricular and subcortical hypodensities, nonspecific, but likely reflecting sequelae of chronic microvascular ischemic changes. The ventricles, sulci and cisterns are age appropriate. The majano-white differentiation is intact. The visualized paranasal sinuses and mastoid air cells are clear. No depressed calvarial fracture. The surrounding soft tissues are unremarkable. IMPRESSION: 1. No acute intracranial abnormality.
--- NOTE | 2025-04-28 08:33 | DVH ---
INDICATION: fall, weak TECHNIQUE: Frontal view of the chest. COMPARISON: None FINDINGS: Right chest port with tip in the SVC. The heart and mediastinal contours are grossly unremarkable. M ultifocal airspace opacities. Small bilateral pleural effusions The bony structures of the chest a re intact without fracture. IMPRESSION: 1. Cardiomegaly with CHF
[2025-04-28] MEDS ORDERED: DOCUSATE SOD 100 MG CAP PO PRN (10:15)
[2025-04-28] MEDS ORDERED: NITROGLYCERIN 0.4 MG SL TAB SL PRN (10:15)
[2025-04-28] MEDS ORDERED: MORPHINE SULFATE INJ 2 MG/ml SYRG IV PRN (10:15)
[2025-04-28] MEDS ORDERED: ONDANSETRON HCL 4 MG/2 ML VIAL IV PRN (10:15)
--- NOTE | 2025-04-28 10:19 | DVHHP2 ---
History of Present Illness Reason for Visit: fall History of Present Illness 75-year-old male with a past medical history of hypertension, stage IV lung cancer with metastasis to the liver (diagnosed 2019, receiving treatment at [facility]), chronic anemia, bilateral eye drainage, prior colon surgery for tumor removal, and history of Agent [place] exposure presents after a fall. Patient reports tripping over a piece of wood last night and being found by his approximately 11 hours later. Denies loss of consciousness, head trauma symptoms, back pain, hip pain, or leg pain. Notes chronic bilateral lower extremity swelling. No anticoagulant use. Reports skin tears to arms from the fall. is at bedside. Last chemotherapy session was yesterday, during which he also received 1 unit of blood transfusion. Patient continues to smoke. In the ED, labs were notable for WBC 11.3 , Hgb 9.3 , Hct 27.4, platelet count 44 , sodium 135 , creatinine 1.3 , magnesium 1.4 , calcium 8.4 , total bilirubin 1.3 , ALT 147, AST 77 , ALP 138 , BNP 261.58 , albumin 2.7 , lactate 1.[address] brain showed no acute intracranial findings. Admitted for further evaluation, fall risk assessment, electrolyte repletion, and PT consult. Dr. Lee consulted. Past Medical History See HPI above Past Surgical History See HPI above Family History Reviewed, non-contributory to the management of this case. Past Social History Patient does smoke by history but denies drug or alcohol use Review of Systems Constitutional: No: Fever, Chills, Sweats, Weakness, Malaise, Other Eyes: No: Pain, Vision change, Conjunctivae inflammation, Eyelid inflammation, Other, Redness ENT: No: Ear pain, Ear discharge, Nose pain, Nose discharge, Nose congestion, Mouth pain, Mouth swelling, Throat pain, Throat swelling, Other Respiratory: No: Cough, Dry, Shortness of breath, SOB with excertion, Wheezing, Hemoptysis, Pleuritic Pain, Sputum, Wheezing, Other Cardiovascular: No: Chest Pain, Palpitations, Orthopnea, Paroxysmal Noc. Dyspnea, Edema, Lt Headedness, Other Gastrointestinal: No: Nausea, Vomiting, Abdominal Pain, Diarrhea, Constipation, Melena, Hematochezia, Other Genitourinary: No Dysuria, No Frequency, No Incontinence, No Hematuria, No Retention, No Other Musculoskeletal: No: other, neck pain, shoulder pain, arm pain, back pain, hand pain, leg pain, foot pain Skin: No: Rash, Lesions, Jaundice, Bruising, Other Neurological: Other (Fall); No: Weakness, Numbness, Incoordination, Change in speech, Confusion, Seizures Allergies: Coded Allergies: NO KNOWN ALLERGIES (Unverified , 04/28/25) Exam Vital Signs Vital Signs Date Time Temp Pulse Resp B/P (MAP) Pulse Ox O2 Delivery O2 Flow Rate FiO2 04/28/25 10:00 100 20 104/57 (73) 98 04/28/25 08:02 Room Air* 0 21 04/28/25 07:30 97.5 97.5 General Appearance: Alert, Oriented X3, Cooperative, No acute distress HEENT: Atraumatic, PERRLA, EOMI, Mucous membr. moist/pink, Other (Does have some discharged in bilateral eyes and some skin tags to right lateral eye) Respiratory: Clear to auscultation, Normal air movement Cardiovascular: Regular rate, Normal S1, Normal S2, No murmurs Abdominal: Normal bowel sounds, Soft, No tenderness, No hepatospenomegaly, No masses Extremities: Other (Bilateral lower extremity with edema) Skin: No rashes, No breakdown, No significant lesion Neuro: Other (Neuro nonfocal) Psych/Mental Status: Mental status NL, Mood NL Labs/Xrays CT scan of the brain unremarkable I reviewed labs, imaging CT scan abdomen pelvis, EKG and all diagnostic studies on this patient from ED records and the medical chart Labs Test 04/28/25 07:25 Range/Units White Blood Count 11.3 H 4.4-10.8 10^3/uL Red Blood Count 2.84 L 4.5-5.90 10^6/uL Hemoglobin 9.3 L 13.5-17.5 g/dL Hematocrit 27.4 L 41.0-53.0 % Mean Corpuscular Volume 96.6 80.0-100.0 fL Mean Corpuscular Hemoglobin 32.9 H 28.0-32.0 pg Mean Corpuscular Hemoglobin Concent 34.1 32.0-36.0 g/dL Red Cell Distribution Width 27.5 H 11.8-14.3 % Platelet Count 44 L 140-450 10^3/uL Mean Platelet Volume 8.7 6.9-10.8 fL Neutrophils (%) (Auto) 85.0 H 37.0-80.0 % Lymphocytes (%) (Auto) 10.4 10.0-50.0 % Monocytes (%) (Auto) 3.1 0.0-12.0 % Eosinophils (%) (Auto) 1.0 0.0-7.0 % Basophils (%) (Auto) 0.5 0.0-2.0 % Neutrophils # (Auto) 9.6 H 1.6-8.6 10 ^3/uL Lymphocytes # (Auto) 1.2 0.4-5.4 10 ^3/uL Monocytes # (Auto) 0.3 0-1.3 10 ^3/uL Eosinophils # (Auto) 0.1 0-0.8 10 ^3/uL Basophils # (Auto) 0.1 0-0.2 10 ^3/uL Nucleated Red Blood Cells 0.2 % Platelet Estimate Decrea Large Platelets Few Sodium Level 135 L 136-145 mmol/L Potassium Level 3.9 3.5-5.1 mmol/L Chloride Level 107 98-107 mmol/L Carbon Dioxide Level 21 20-31 mmol/L Anion Gap 7 5-15 Blood Urea Nitrogen 28 H 9-23 mg/dL Creatinine 1.39 H 0.700-1.30 mg/dL Glomerular Filtration Rate Calc 53 >90 mL/min BUN/Creatinine Ratio 20.1 H 10.0-20.0 Serum Glucose 87 74-106 mg/dL Lactic Acid Level 1.9 0.4-2.0 mmol/L Calcium Level 8.4 L 8.7-10.4 mg/dL Magnesium Level 1.4 L 1.6-2.6 mg/dL Total Bilirubin 1.3 H 0.2-1.0 mg/dL Aspartate Amino Transferase (AST) 20 13-40 U/L Alanine Aminotransferase (ALT) < 9 7-40 U/L Alkaline Phosphatase 147 H 46-116 U/L Creatine Kinase 38 L 46-171 U/L Troponin I High Sensitivity 77 *H </=54 ng/L B-Type Natriuretic Peptide 261.58 0-100 pg/mL Total Protein 6.8 5.7-8.2 g/dL Albumin 2.7 L 3.2-4.8 g/dL SEPSIS Sepsis Screen Date sepsis recognized/suspect: Apr 28, 2025 Time Sepsis recognized/suspect: 1016 Recent Procedure: No On Antibiotic Therapy: No Respiratory Rate >20: No Heart Rate >90: No Temp<36 C (96.8 F) or >38.3 C: No SBP <90 or MAP <65 mmHG: No New Acute Mental Status Change: No Is the patient on CPAP, BIPAP,: No Physician Orders [facility] (04/28/25 ) Urinalysis (04/28/25 07:08) Electrocardigram (04/28/25 07:08) Head Without Contrast (04/28/25 07:08) Troponin-I Hs (04/28/25 08:08) Troponin-I Hs (04/28/25 10:08) Cleanse Wound With Ns (04/28/25 07:08) Magnesium Sulfate 1gm/100ml (04/28/25 08:15) Chest Portable (04/28/25 08:03) Admit (04/28/25 10:12) Allergies (04/28/25 10:12) Code Status (04/28/25 10:12) 0.9% Ns 1000 Ml (04/28/25 10:15) Ondansetron Hcl (Zofran) (04/28/25 10:15) Docusate Sodium Capsule (Colace Capsule) (04/28/25 10:15) Complete Blood Count (04/29/25 04:00) Comprehensive Metabolic Panel (04/29/25 04:00) Pt Request For Service (04/28/25 10:12) Condition: Stable (04/28/25 10:12) BRP (04/28/25 10:12) Morphine Sulfate Injection (04/28/25 10:15) Sequential Compression Device (04/28/25 ) Nitroglycerin Sublingual (Ntrostat Subli (04/28/25 10:15) Stat Ekg For Chest Pain (04/28/25 10:12) Notify Md Of Changes From Base (04/28/25 10:12) Mender Hand For 24 Hours (04/28/25 10:12) Emergency Dysrhythmia Protocol (04/28/25 10:12) Rhythm Strips Once Every Shift (04/28/25 10:12) Oxygen By Nasal Cannula (04/28/25 10:12) Urine Sodium (04/28/25 10:12) Urine Creatinine (04/28/25 10:12) Regular Diet (04/28/25 Lunch) Ok To Access Latanya-Cath (04/28/25 10:12) *Consult Dr. Jesus Bermudez (04/28/25 10:12) Document Home Meds (04/28/25 ) Get List Of Home Medications (04/28/25 10:12) Vital Signs Date Time Temp Pulse Resp B/P (MAP) Pulse Ox O2 Delivery O2 Flow Rate FiO2 04/28/25 10:00 100 20 104/57 (73) 98 04/28/25 08:02 105 20 96 Room Air* 0 21 04/28/25 08:00 110 19 112/48 (69) 97 04/28/25 07:53 90 04/28/25 07:30 97.5 105 20 113/58 (76) 96 97.5 04/28/25 06:50 98.0 94 18 136/72 98 98.0 Laboratory Tests Test 04/28/25 07:25 Lactic Acid Level 1.9 mmol/L (0.4-2.0) White Blood Count 11.3 10^3/uL (4.4-10.8) H Assessment/Plan Assessment/Plan 75-year-old male withFall with prolonged ground time in patient with stage IV lung cancer, chemotherapy-induced pancytopenia, and electrolyte abnormalities. acute Fall prolonged down time, no acute intracranial injury ct brain Monitor for delayed neurologic changes. Neuro checks every 4 hours. PT evaluation for mobility and fall risk. Wound care consult for skin tears if needed. acute Thrombocytopenia chemotherapy-related Platelets 44 monitor daily CBC. Bleeding precautions in place. No anticoagulation until platelet count >50 Coordinate with oncology for management if need at [facility] Anemia chronic, chemotherapy-related Hgb 9.3 post-transfusion yesterday. Monitor CBC. Transfuse if Hgb <7.0 or symptomatic. Stage IV Lung Cancer with Liver Metastasis Ongoing chemotherapy at [facility]. Oncology to follow. Symptom-directed supportive care. acute Hyponatremia mild Na 135 ; monitor BMP daily. Maintain fluid balance. acute Hypomagnesemia Mg 1.4; replace IV magnesium per protocol. Monitor levels daily. acute Hypocalcemia mild Ca 8.4 ; monitor and replace if symptomatic or worsening. Transaminitis likely chemotherapy-related ALT 147, AST 77 ; monitor LFTs. Avoid hepatotoxic medications. Chronic Bilateral Eye Drainage Consider outpatient ophthalmology follow-up. Supportive care with hygiene and warm compresses. CHRONIC PROBLEM LIST Stage IV lung cancer with metastasis to liver Hypertension Chronic anemia Thrombocytopenia History of colon tumor resection History of Agent [place] exposure Tobacco use disorder enc abstience offered patch refused FEN / PPx Fluids/Electrolytes/Nutrition (FEN): Regular diet as tolerated. Replace Mg and Ca per protocol.Monitor BMP and electrolytes daily. Prophylaxis (PPx): DVT: Hold pharmacologic prophylaxis due to platelets <50 ; use SCDs. GI: no gi ppx since no hx of gerds or gi bleed Disposition: Admit to telemetry for monitoring of pancytopenia, electrolyte replacement, and fall recovery. Discharge home with wifes supervision once stable and cleared by PT/OT. Plan discussed with: Patient, Spouse My Orders Orders - ENRRIQUE SCANLON DNP Procedure Category Date Status Time Admit ADMIT 04/28/25 Transmitted 10:12 Allergies ASHLYN 04/28/25 Transmitted 10:12 Code Status CODE 04/28/25 Transmitted 10:12 0.9% Ns 1000 Ml PHA 04/28/25 Transmitted 10:15 Ondansetron Hcl PHA 04/28/25 Transmitted (Zofran) 10:15 Docusate Sodium PHA 04/28/25 Transmitted Capsule (Colace 10:15 Complete Blood Count LAB 04/29/25 Verified 04:00 Comprehensive LAB 04/29/25 Verified Metabolic Panel 04:00 Pt Request For Service PT 04/28/25 Transmitted 10:12 Condition: Stable ASHLYN 04/28/25 Transmitted 10:12 BRP ASHLYN 04/28/25 Transmitted 10:12 Morphine Sulfate PHA 04/28/25 Transmitted Injection 10:15 Sequential ASHLYN 04/28/25 Transmitted Compression Device Nitroglycerin PHA 04/28/25 Transmitted Sublingual (Ntrostat 10:15 Stat Ekg For Chest ASHLYN 04/28/25 Transmitted Pain 10:12 Notify Md Of Changes [facility] 04/28/25 Transmitted From Base 10:12 Mender Hand For ASHLYN 04/28/25 Transmitted 24 Hours 10:12 Emergency Dysrhythmia ASHLYN 04/28/25 Transmitted Protocol 10:12 Rhythm Strips Once [facility] 04/28/25 Transmitted Every Shift 10:12 Oxygen By Nasal RT 04/28/25 Transmitted Cannula 10:12 Urine Sodium LAB 04/28/25 Transmitted 10:12 Urine Creatinine LAB 04/28/25 Transmitted 10:12 Regular Diet DIET 04/28/25 Transmitted Lunch Ok To Access ORDERS 04/28/25 Transmitted Latanya-Cath 10:12 *Consult Dr. Lee CONS 04/28/25 Transmitted Arunasalam 10:12 Document Home Meds ED NURSING 04/28/25 Transmitted Get List Of Home ORDERS 04/28/25 Transmitted Medications 10:12 Date of Service: Apr 28, 2025 Billing Provider: ENRRIQUE SCANLON DNP Common Visit Codes: [id number] INP/OBS CARE (HIGH) ENRRIQUE SCANLON DNP Apr 28, 2025 10:19
[2025-04-28] MEDS: SODIUM CHLORIDE 0.9% 1,000 ML IV SCH (10:37)
[2025-04-28] MEDS: MAGNESIUM SULFATE 1GM/100ML 100 ML IV ONE (10:37)
--- NOTE | 2025-04-28 12:31 | DVHPN2 ---
Progress Note - Dictate Date Seen: Apr 28, 2025 Medical Necessity Reason Pt with a Central, PICC or Fol: No Subjective PT WITH MECHNICAL FALL BECAUSE OF SEVERE MALNUTRITION PROXIMAL MUSCLE WEAKNESS SECONDARY TO CA AND PROTEIN MALNUTRITION METASTATIC COLON CA METS TO LIVE AND LUNG CURRENTLY ON CHEMO AND BEING TREATED AT [facility] COPD CONT TOBACCO USE HX OF CHOLECYSTITIS TREATED CONSEVATIVELY WITHOUT SURGERY SECONDARY TO METASTATIC DISEASE NOW WITH SEVERE ANEMIA LEUKOCYTOSIS CARDIAC STATUS STABLE I BELIEVE PT IS HIGH RISK FROM COLON CA NOW WITH PROGRESSIVE SX AND NEW LESIONS NOTED AT [facility] DESPITE ON CHEMO CONSIDER TRANSFER TO [facility] ANEMIA CAHEXIA vital signs Vital Sign Date Time Temp Pulse Resp B/P (MAP) Pulse Ox O2 Delivery O2 Flow Rate FiO2 04/28/25 10:00 100 20 104/57 (73) 98 04/28/25 08:02 Room Air* 0 21 04/28/25 07:30 97.5 97.5 medications Current Medications Medications Dose Ordered Sig/Samir Route Start Time Stop Time Status Last Admin Dose Admin Sodium Chloride 1,000 ml @ 70 mls/hr [id number] IV 04/28/25 10:15 04/28/25 10:37 70 MLS/HR Ondansetron HCl 4 mg Q4HP PRN IV 04/28/25 10:15 Docusate Sodium 100 mg BIDPRN PRN PO 04/28/25 10:15 Morphine Sulfate 2 mg Q4HPRN PRN IV 04/28/25 10:15 Nitroglycerin 0.4 mg Q5MINP PRN SL 04/28/25 10:15 laboratory and microbiology Laboratory Tests 04/28/25 07:25 Test 04/28/25 07:25 Range/Units Serum Glucose 87 74-106 mg/dL Problem List PT WITH MECHNICAL FALL BECAUSE OF SEVERE MALNUTRITION PROXIMAL MUSCLE WEAKNESS SECONDARY TO CA AND PROTEIN MALNUTRITION METASTATIC COLON CA METS TO LIVE AND LUNG CURRENTLY ON CHEMO AND BEING TREATED AT [facility] COPD CONT TOBACCO USE HX OF CHOLECYSTITIS TREATED CONSEVATIVELY WITHOUT SURGERY SECONDARY TO METASTATIC DISEASE NOW WITH SEVERE ANEMIA LEUKOCYTOSIS CARDIAC STATUS STABLE I BELIEVE PT IS HIGH RISK FROM COLON CA NOW WITH PROGRESSIVE SX AND NEW LESIONS NOTED AT [facility] DESPITE ON CHEMO CONSIDER TRANSFER TO [facility] ANEMIA CAHEXIA Assessment/Plan IMPROVE NUTRITIONAL STATUS PT CT ABD PELVIS IRON STUDY Plan discussed with: Patient Critical Care Time(min): 35 NICKI RIVAS MD Apr 28, 2025 12:31
[2025-04-28] MEDS: TESTOSTERONE CYPIONATE 200 MG/ML 1ML VIAL IM ONE (14:40)
--- NOTE | 2025-04-28 19:09 | ECG ---
[facility] Test Date: 2025-04-28 Test Time: 07:50:37 Pat Name: CLINT HE Department: ED Room: 0206T A Gender: M Driver License Technician: RAJENDRA : [id number] Requested By: FAN MAYERS Order Number: [id number] Reading MD: Bob Alva Measurements Intervals [place] Rate: 90 P: 67 OK: 148 QRS: 92 QRSD: 153 T: -19 QT: 387 QTc: 474 Interpretive Statements Sinus rhythm RBBB and LPFB Electronically Signed On 05-01-2025 22:48:31 PDT by Bob Alva Please click the below link to view image of tracing.
[2025-04-29 01:00] VITALS: BP 144/88; PULSE 64; RESP 18; TEMP 97.2; O2SAT 98
[2025-04-29 05:00] VITALS: BP 144/83; PULSE 106; RESP 18; TEMP 98.1; O2SAT 97
[2025-04-29 06:45] LABS: Hematocrit 22.0 % (41.0-53.0); Hemoglobin 7.6 g/dL (13.5-17.5); Mean Corpuscular Hemoglobin 33.0 pg (28.0-32.0); Mean Corpuscular Volume 95.6 fL (80.0-100.0); Nucleated Red Blood Cells % 0.2 %
[2025-04-29 06:57] LABS: Anion Gap 9 (5-15); BUN/Creatinine Ratio 22.1 (10.0-20.0); Bilirubin, Total 0.9 mg/dL (0.2-1.0); Carbon Dioxide 20 mmol/L (20-31); Glucose 76 mg/dL (74-106); Potassium 3.8 mmol/L (3.5-5.1); Sodium 140 mmol/L (136-145); Total Protein 5.9 g/dL (5.7-8.2)
[2025-04-29 06:58] LABS: Alanine Aminotransferase < 9 U/L (7-40); Albumin 2.4 g/dL (3.2-4.8); Alkaline Phosphatase 128 U/L (46-116); Blood Urea Nitrogen 27 mg/dL (9-23); Calcium 8.2 mg/dL (8.7-10.4); Chloride 111 mmol/L (98-107)
[2025-04-29 07:54] LABS: Anisocytosis Slight
[2025-04-29 08:00] VITALS: PULSE 97
[2025-04-29 09:00] VITALS: BP 132/75; PULSE 103; RESP 18; TEMP 98; O2SAT 95
--- NOTE | 2025-04-29 09:50 | DVHPN2 ---
Reviewed: Care Plan, H&P, Labs, Medications, Previous Orders, Radiology Changes from previous H/P or p: No Changes Eyes: No Pain, No Vision change, No Conjunctivae inflammation, No Eyelid inflammation, No Other, No Redness ENT: No Ear pain, No Ear discharge, No Nose pain, No Nose discharge, No Nose congestion, No Mouth pain, No Mouth swelling, No Throat pain, No Throat swelling, No Other Cardiovascular: No Chest Pain, No Palpitations, No Orthopnea, No Paroxysmal Noc. Dyspnea, No Edema, No Lt Headedness, No Other Respiratory: No Cough, No Dry, No Shortness of breath, No SOB with excertion, No Wheezing, No Hemoptysis, No Pleuritic Pain, No Sputum, No Other Gastrointestinal: No Nausea, No Vomiting, No Abdominal Pain, No Diarrhea, No Constipation, No Melena, No Hematochezia, No Other Genitourinary: No Dysuria, No Frequency, No Incontinence, No Hematuria, No Retention, No Other Musculoskeletal: No other, No neck pain, No shoulder pain, No arm pain, No back pain, No hand pain, No leg pain, No foot pain Skin: No Rash, No Lesions, No Jaundice, No Bruising, No Other Objective Vitals Vital Signs Date Time Temp Pulse Resp B/P (MAP) Pulse Ox O2 Delivery O2 Flow Rate FiO2 04/29/25 08:00 Room Air* 0 21 04/29/25 05:00 98.1 106 18 144/83 (103) 97 98.1 Intake/Output Intake and Output 04/29/25 07:00 Intake Total 490 ml Output Total 150 ml Balance 340 ml Intake Oral 250 ml IV Total 240 ml Output Urine Total 150 ml # Voids 3 # Bowel Movements 3 Medications Current Medications Medications Dose Ordered Sig/Samir Route Start Time Stop Time Status Last Admin Dose Admin Sodium Chloride 1,000 ml @ 70 mls/hr [id number] IV 04/28/25 10:15 04/28/25 23:59 70 MLS/HR Ondansetron HCl 4 mg Q4HP PRN IV 04/28/25 10:15 Docusate Sodium 100 mg BIDPRN PRN PO 04/28/25 10:15 Morphine Sulfate 2 mg Q4HPRN PRN IV 04/28/25 10:15 Nitroglycerin 0.4 mg Q5MINP PRN SL 04/28/25 10:15 Laboratory Results Laboratory Tests 04/29/25 05:14 Chemistry Test 04/29/25 05:14 Albumin 2.4 g/dL (3.2-4.8) L Calcium Level 8.2 mg/dL (8.7-10.4) L Total Protein 5.9 g/dL (5.7-8.2) LFT Test 04/29/25 05:14 Alanine Aminotransferase (ALT) < 9 U/L (7-40) Alkaline Phosphatase 128 U/L (46-116) H Aspartate Amino Transferase (AST) 19 U/L (13-40) Total Bilirubin 0.9 mg/dL (0.2-1.0) Labs and/or images reviewed: Labs reviewed by me, Image(s) reviewed by me Assessment/Plan Assessment/Plan Status post mechanical fall. CT head negative for any fracture or bleeding Metastatic colon cancer with Mets to the liver and lungs on chemo at [facility] Acute on chronic COPD exacerbation History of cholecystitis status conservatively Anemia of chronic disease Sepsis with elevated white count Chronic current smoker: Counseling Cachexia Severe malnutrition Time spent 70 minutes Advanced care planning time 25 minutes Patient is full code PCP and patient's assembler for puller over hand Dr Lee recommended transfer to [facility] at bedside Patient is insisting to be discharged home today Plan discussed with: Patient Date of Service: Apr 29, 2025 Billing Provider: ANGELICA TERESA MD Common Visit Codes: [id number] INP/OBS CARE(HIGH) ANGELICA TERESA MD Apr 29, 2025 09:50
--- NOTE | 2025-04-29 09:57 | DVHDS2 ---
Discharge Summary Date of Admission Apr 28, 2025 at 10:12 Date of Discharge: Apr 29, 2025 Admitting Diagnosis Fall injury Wounds: None Labs/Diagnostic Data: Laboratory Results Test 04/29/25 05:14 04/28/25 15:19 04/28/25 07:25 White Blood Count 8.6 10^3/uL (4.4-10.8) Red Blood Count 2.31 10^6/uL (4.5-5.90) Hemoglobin 7.6 g/dL (13.5-17.5) Hematocrit 22.0 % (41.0-53.0) Mean Corpuscular Volume 95.6 fL (80.0-100.0) Mean Corpuscular Hemoglobin 33.0 pg (28.0-32.0) Mean Corpuscular Hemoglobin Concent 34.6 g/dL (32.0-36.0) Red Cell Distribution Width 26.6 % (11.8-14.3) Platelet Count 41 10^3/uL (140-450) Mean Platelet Volume 9.1 fL (6.9-10.8) Neutrophils (%) (Auto) 81.4 % (37.0-80.0) Lymphocytes (%) (Auto) 13.5 % (10.0-50.0) Monocytes (%) (Auto) 3.7 % (0.0-12.0) Eosinophils (%) (Auto) 0.9 % (0.0-7.0) Basophils (%) (Auto) 0.5 % (0.0-2.0) Neutrophils # (Auto) 7.0 10 ^3/uL (1.6-8.6) Lymphocytes # (Auto) 1.2 10 ^3/uL (0.4-5.4) Monocytes # (Auto) 0.3 10 ^3/uL (0-1.3) Eosinophils # (Auto) 0.1 10 ^3/uL (0-0.8) Basophils # (Auto) 0 10 ^3/uL (0-0.2) Nucleated Red Blood Cells 0.2 % Platelet Estimate Decreased Anisocytosis (manual) Slight Target Cells Few Sodium Level 140 mmol/L (136-145) Potassium Level 3.8 mmol/L (3.5-5.1) Chloride Level 111 mmol/L (98-107) Carbon Dioxide Level 20 mmol/L (20-31) Anion Gap 9 (5-15) Blood Urea Nitrogen 27 mg/dL (9-23) Creatinine 1.22 mg/dL (0.700-1.30) Glomerular Filtration Rate Calc 62 mL/min (>90) BUN/Creatinine Ratio 22.1 (10.0-20.0) Serum Glucose 76 mg/dL (74-106) Calcium Level 8.2 mg/dL (8.7-10.4) Total Bilirubin 0.9 mg/dL (0.2-1.0) Aspartate Amino Transferase (AST) 19 U/L (13-40) Alanine Aminotransferase (ALT) < 9 U/L (7-40) Alkaline Phosphatase 128 U/L (46-116) Total Protein 5.9 g/dL (5.7-8.2) Albumin 2.4 g/dL (3.2-4.8) Troponin I High Sensitivity 74 ng/L (</=54) Large Platelets Few Lactic Acid Level 1.9 mmol/L (0.4-2.0) Magnesium Level 1.4 mg/dL (1.6-2.6) Creatine Kinase 38 U/L (46-171) B-Type Natriuretic Peptide 261.58 pg/mL (0-100) Other Laboratory Tests 04/29/25 05:14 Brief Hx & Hospital Course: 75-year-old male with a metastatic colon cancer with Mets to the liver and lungs on chemo at [facility] COPD chronic anemia chronic current smoker Severe malnutrition burden by family for incidental fall at home. The patient says that he had a mechanical follow up by tripping on something. CT head was negative. Patient was given IV fluids Dr. Avalos recommended transfer to [facility] because of a generalized weakness secondary to chemotherapy. But the patient refusing flatly and wants to go home today. He says he has an appointment next with [facility] the at bedside and she agrees with the patient's request for discharge. Discharged home. General condition very poor. Consults/Reason for consult Cardiology Dr. Lee Operations or Procedures CT head Condition at Discharge: Fair Final Diagnosis/Problems List Status post mechanical fall. CT head negative for any fracture or bleeding Metastatic colon cancer with Mets to the liver and lungs on chemo at [facility] Acute on chronic COPD exacerbation History of cholecystitis status conservatively Anemia of chronic disease Sepsis with elevated white count Chronic current smoker: Counseling Cachexia Severe malnutritio Discharge Disposition: Home Discharge Instruct/Medications Diet: Cardiac 2g Na,low cholest Activity: Light activity Follow Up/Referral: Keep your appointment with the [facility] coming 05-04-25 Continue all your previous home medications Medications: none 39 (Time taken for discharge summary 39 minutes) Discharge Statement: "Patient was advised to return to the ER or call 911 if any headaches, dizziness, shortness of breath, chest pain, abdominal pain, bleeding, fevers, or worsening of medical condition. Patient was counseled about treatment plan, medications, possible side effects, patientverbalized understanding. All questions were answered to the best of my ability. This discharge took greater then 30 minutes in planning, reviewing documentation, counseling the patient, and discussing with other team members." ASSESSMENT ASSESSMENT Assessment Status post mechanical fall. CT head negative for any fracture or bleeding Metastatic colon cancer with Mets to the liver and lungs on chemo at [facility] Acute on chronic COPD exacerbation History of cholecystitis status conservatively Anemia of chronic disease Sepsis with elevated white count Chronic current smoker: Counseling Cachexia Severe malnutritio Date of Service: Apr 29, 2025 Billing Provider: ANGELICA TERESA MD Common Visit Codes: [id number] DISCH DAY >30min ANGELICA TERESA MD Apr 29, 2025 09:57
[2025-04-29 11:07] VITALS: BP 138/69; PULSE 96; RESP 18; TEMP 96.9; O2SAT 95
--- NOTE | 2025-05-01 13:23 | DVHPN2 ---
Progress Note - Dictate Date Seen: Apr 29, 2025 Medical Necessity Reason Pt with a Central, PICC or Fol: No Subjective PT WITH MECHNICAL FALL BECAUSE OF SEVERE MALNUTRITION PROXIMAL MUSCLE WEAKNESS SECONDARY TO CA AND PROTEIN MALNUTRITION METASTATIC COLON CA METS TO LIVE AND LUNG CURRENTLY ON CHEMO AND BEING TREATED AT [facility] COPD CONT TOBACCO USE HX OF CHOLECYSTITIS TREATED CONSEVATIVELY WITHOUT SURGERY SECONDARY TO METASTATIC DISEASE NOW WITH SEVERE ANEMIA LEUKOCYTOSIS CARDIAC STATUS STABLE I BELIEVE PT IS HIGH RISK FROM COLON CA NOW WITH PROGRESSIVE SX AND NEW LESIONS NOTED AT [facility] DESPITE ON CHEMO CONSIDER TRANSFER TO [facility] ANEMIA CAHEXIA vital signs Vital Sign Date Time Temp Pulse Resp B/P (MAP) Pulse Ox O2 Delivery O2 Flow Rate FiO2 04/29/25 11:07 96.9 96 18 95 04/29/25 09:00 132/75 (94) 04/29/25 08:00 Room Air* 0 21 laboratory and microbiology Laboratory Tests 04/29/25 05:14 Test 04/29/25 05:14 Range/Units Serum Glucose 76 74-106 mg/dL Problem List PT WITH MECHNICAL FALL BECAUSE OF SEVERE MALNUTRITION PROXIMAL MUSCLE WEAKNESS SECONDARY TO CA AND PROTEIN MALNUTRITION METASTATIC COLON CA METS TO LIVE AND LUNG CURRENTLY ON CHEMO AND BEING TREATED AT [facility] COPD CONT TOBACCO USE HX OF CHOLECYSTITIS TREATED CONSEVATIVELY WITHOUT SURGERY SECONDARY TO METASTATIC DISEASE NOW WITH SEVERE ANEMIA LEUKOCYTOSIS CARDIAC STATUS STABLE I BELIEVE PT IS HIGH RISK FROM COLON CA NOW WITH PROGRESSIVE SX AND NEW LESIONS NOTED AT [facility] DESPITE ON CHEMO CONSIDER TRANSFER TO [facility] ANEMIA CAHEXIA Assessment/Plan IMPROVE NUTRITIONAL STATUS PT CT ABD PELVIS IRON STUDY DC HOME Plan discussed with: Patient NICKI RIVAS MD May 01, 2025 13:23
== END 2025-04-29 11:50 | disposition home or self-care (01) | DRG 947 ==
LOC: ER 06:47 → MERGE 10:12 → OVERFLOW 10:12 → TELE-CENTR 15:40
PROVIDERS: ADMIT Nurse Practitioner Family; ATTEND Nurse Practitioner Family
DX: R53.1 Weakness (principal); E43 Unspecified severe protein-calorie malnutrition; C18.9 Malignant neoplasm of colon, unspecified; C78.00 Secondary malignant neoplasm of unspecified lung; C78.7 Secondary malignant neoplasm of liver and intrahepatic bile duct; E87.1 Hypo-osmolality and hyponatremia; J44.1 Chronic obstructive pulmonary disease with (acute) exacerbation; R64 Cachexia; Z68.20 Body mass index [BMI] 20.0-20.9, adult; D63.8 Anemia in other chronic diseases classified elsewhere; D69.59 Other secondary thrombocytopenia; E83.51 Hypocalcemia; T45.1X5A Adverse effect of antineoplastic and immunosuppressive drugs, initial encounter; R74.01 Elevation of levels of liver transaminase levels; E83.42 Hypomagnesemia; E88.09 Other disorders of plasma-protein metabolism, not elsewhere classified; F17.200 Nicotine dependence, unspecified, uncomplicated; I50.9 Heart failure, unspecified; Z85.118 Personal history of other malignant neoplasm of bronchus and lung; I11.0 Hypertensive heart disease with heart failure
CPT/HCPCS: 36415; 70450; 71045; 80053; 82550; 83605; 83735; 83880; 84484; 85025; 93005; 96365; 96372; 97163; G0378; J1071; J1642

== ENCOUNTER 2025-05-08 12:02 | Outpatient (CLI) | payer MEDICARE, OTHER ==
[~2025-05-08] VITALS: Ht 30.5 cm; Wt 0.5 kg
[2025-05-08 11:59] VITALS: BP 129/72; PULSE 97; RESP 18; O2SAT 99
[2025-05-08] MEDS: POTASSIUM CHL 10 Meq TABLET PO ONE (12:44)
[2025-05-08] MEDS: BUMETANIDE INJECTION 10 ML ONE (12:44)
[2025-05-08] MEDS: BUMETANIDE 2.5mg/10ml (0.25 mg/ml) INJ IV ONE (12:48)
[2025-05-08] MEDS: POTASSIUM CHL 20 Meq TABLET PO ONE (12:52)
[2025-05-08 13:07] VITALS: BP 148/82; PULSE 93; RESP 18; O2SAT 99
== END 2025-05-08 17:00 | disposition home or self-care (01) ==
LOC: CHF HDHVI 12:02
PROVIDERS: ATTEND Internal Medicine Cardiovascular Disease
DX: I13.0 Hypertensive heart and chronic kidney disease with heart failure and stage 1 through stage 4 chronic kidney disease, or unspecified chronic kidney disease (principal); I50.23 Acute on chronic systolic (congestive) heart failure; N18.9 Chronic kidney disease, unspecified; D63.1 Anemia in chronic kidney disease; J44.9 Chronic obstructive pulmonary disease, unspecified; Z85.118 Personal history of other malignant neoplasm of bronchus and lung; Z87.891 Personal history of nicotine dependence
CPT/HCPCS: 96374; G0463; J1642